=== PATIENT | female | born 1990 | race Caucasian/White ===

== ENCOUNTER 2022-05-02 21:04 | Emergency (ER) | payer BC, SELFPAY ==
[2022-05-02 21:24] VITALS: BP 134/90; PULSE 105; RESP 20; TEMP 36.4; O2SAT 100; BMI 21.9
--- NOTE | 2022-05-02 21:42 | ED_ITS ---
HPI - General Adult General Time Seen by Provider: 21:43 Date Seen: 05/02/22 Chief complaint: Urogenital Problems, Female Stated complaint: Bladder Infection getting worse Time Seen by Provider: 05/02/22 21:05 Source: patient Mode of arrival: ambulatory Limitations: no limitations History of Present Illness HPI narrative: Patient is a 28 year white female was diagnosed with the UTI couple days ago started on Keflex, but she lost her Keflex prescription. Today she noticed some increased dysuria frequency urgency. Denies CVA tenderness. No chest pain shortness of breath skin rashes no rigors. Related Data Home Medications Medication Instructions Recorded Confirmed cephalexin 500 mg capsule 500 mg PO Q12H 05/02/22 05/02/22 Previous Rx's Medication Instructions Recorded amoxicillin 500 mg-potassium 1 tab PO BID #10 tabs 05/02/22 clavulanate 125 mg tablet (Augmentin) Allergies Allergy/AdvReac Type Severity Reaction Status Date / Time Sulfa (Sulfonamide Allergy Mild Hives Verified 05/02/22 21:29 Antibiotics) Review of Systems Status of ROS: Reports: 6 or more systems reviewed and unremarkable except as noted in History and below PFSH PFS Medical History Bladder spasm Depression Drug use 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 Genital herpes Headache Heart murmur Heroin addiction IBS (irritable bowel syndrome) Iron deficiency LGSIL Pap smear of vagina Methamphetamine abuse Migraine Miscarriage Polysubstance abuse Vaginal Pap smear with ASC-US Vitamin D deficiency Surgical History H/O dilation and curettage H/O vaginal hysterectomy Hx laparoscopic cholecystectomy Hx of tonsillectomy Exam Narrative: Exam Narrative: Objective: Patient had E coli growing her urinalysis sensitive 0 pending Abdomen benign soft nontender Vital signs unremarkable afebrile Abdomen benign soft negative CVA tenderness Const: Vital Signs, click to edit/add: Vital Signs - 24 hr 05/02/22 21:24 Temperature 97.6 F Pulse Rate [Left P ulse Oximeter] 105 H Respiratory Rate 20 Blood Pressure [Ri ght Upper Arm] 134/90 H Pulse Oximetry 100 Oxygen Delivery Me thod Room Air Course Vital Signs Vital signs: Initial Vital Signs Temperature 97.6 F 05/02/22 21:24 Temperature Source Temporal Artery Scan 05/02/22 21:24 Pulse Rate 105 H 05/02/22 21:24 Respiratory Rate 20 05/02/22 21:24 Blood Pressure 134/90 H 05/02/22 21:24 Blood Pressure Mean 104 05/02/22 21:24 Blood Pressure Position Sitting 05/02/22 21:24 Pulse Oximetry 100 05/02/22 21:24 Oxygen Delivery Method 05/02/22 21:24 Vital Signs Temperature 97.6 F 05/02/22 21:24 Pulse Rate 105 H 05/02/22 21:24 Respiratory Rate 20 05/02/22 21:24 Blood Pressure 134/90 H 05/02/22 21:24 Pulse Oximetry 100 05/02/22 21:24 Oxygen Delivery Method 05/02/22 21:24 Temperature 97.6 F 05/02/22 21:24 Pulse Rate 105 H 05/02/22 21:24 Respiratory Rate 20 05/02/22 21:24 Blood Pressure 134/90 H 05/02/22 21:24 Pulse Oximetry 100 05/02/22 21:24 Oxygen Delivery Method 05/02/22 21:24 Medical Decision Making MDM Narrative Medical decision making narrative: Patient E coli growing on her urine, sensitivities pending, she lost her antibiotic. At this point will give her Rocephin 1 g IM, and call in Augmentin 500 b.i.d. for her x7 day x5 days, light activity, fluids, rest, follow up with primary care in 2 days if not improving changes concerns worsening return to the ED. Discharge Plan Discharge Clinical Impression: Urinary tract infection Patient Disposition: Home, Self-Care Condition: Stable Additional Instructions: Fluids, rest, Rocephin tonight IM, start antibiotic tomorrow that will be faxed into pharmacy, return to primary care doctor in the next 48 hours not improving changes could worsening or concerns return to the ED. Activity Level: Light activity Discharge Diet: Regular Prescriptions: New amoxicillin-pot clavulanate [Augmentin] 500-125 mg tablet 1 tab PO BID Qty: 10 0RF No Action cephalexin 500 mg capsule 500 mg PO Q12H Label Comments: TAKE ONE CAPSULE BY MOUTH TWICE A DAY FOR 7 DAYS Follow Up/Referrals: Lisa Olmedo MD [Primary Care Provider] - Stand Alone Forms: [facility] Info Instructions
[2022-05-02] MEDS: cefTRIAXone 1 GM VIAL IM (21:53)
[2022-05-02] MEDS: LIDOCAINE 1% 5 ml (pf) 5 ML VIAL 2.1 ML IM (21:53)
--- OUTSIDE RECORDS SUMMARY | 2022-05-02 21:55 | XMS_ITS | Encounter Summary ---
:1990 Author Organization [place] Address [address] [place] [address] Care Team Providers Name Role Phone Lisa Olmedo MD Primary Care Provider Reason for Visit Reason Onset Date Comments Clinic Care Coordination - Follow-up 12/27/2017 Dis charge from [facility] Encounter Details Date Type Department Care Team Description 12/27/2017 Telephone [facility] Debbie Ivan, Clinic Care Coordination Mental Health & [facility] [employer] - Follow-up (Discharge Addiction [place] [address] from [facility]) Clinic [place] [address] [phone] (Work) [phone] Social History Tobacco Use Types Packs/Day Years Used Date Smoking Tobacco: Never Assessed Sex Assigned at Date Recorded Not on file documented as of this encounter Plan of Treatment Not on filedocumented as of this encounter Visit Diagnoses Not on filedocumented in this encounter Care Teams Water Chaser Relationship Specialty Start Date End Date Lisa Olmedo MD PCP - General 02/02/13 [facility] [address] [place] [address] documented as of this encounter
--- OUTSIDE RECORDS SUMMARY | 2022-05-02 21:55 | XMS_ITS | Clinical Summary ---
:1990 Author Organization [place] Address [facility] [place] [address] Care Team Providers Name Role Phone Lisa Olmedo MD Primary Care Provider Allergies Active Allergy Reactions Severity Noted Date Comments Sulfa Drugs Hives 08/02/2020 Medications Medication Sig Dispensed Refills Start Date End Date Status Buprenorphine Place 3 mg under 0 Active HCl-Naloxone HCl the tongue (SUBOXONE SL) traZODone (DESYREL) 150 Take 150 mg by 0 Active MG tablet mouth At Bedtime Active Problems Problem Noted Date Hx of major depression 08/02/2020 Vitamin D deficiency 12/15/2017 Prolonged antepartum rupture of membranes 12/15/2017 Overview: x > 24 hours upon presention Murmur, cardiac 11/03/2017 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 MPP OB PATIENT NEXT VISIT ALERTS: 12/15: Please inform p t of GBS negative. FUTURE APPOINTMENTS: Testing through: Growth: No more needed OB visits through: 12/15/17 needs more Scheduled delivery: PRIMARY DIAGNOSIS: 27 y.o. 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 Normal LV size, normal wall thickness , normal global systolic function with an estimated EF of 60 - 65%. 2. Mildly enlarged left atrium. 3. The mitral valve is normal, mild mitr al regurgitation. LAST GROWTH: 10/31/17: 22w3d EFW 1676 grams, percenti le: 59. 08/18/17: 11w6d EFW 278 grams, percentil e: 23. ECHO: Not indicated TESTING PLANS: Not indicated REFERRING PHYSICIAN/PHONE/LAST UPDATE: Artur Palma NP Primary MD approves scheduling of recomm ended ultrasounds/testing: Unknown SPECIALISTS/CONSULTS: Include: Specialty MD Clinic Name Phone# [place] [facility]ARLENE signed for [facility]: CARE COORDINATION: Vanessa Mayo RN [facility] Maternal Care Coordination [phone] Chart review completed 12/14/2017 [employer]ERCIAL CENSUS TAKER: GENETICS: 11/03/17 Missy Lowery - Amnio CONSULTS: PROCEDURES: 11/03/17 AMNIO: normal 12/01/17: ECHO:Maternal 1. Normal LV size, normal wall thickness , normal global systolic function with an estimated EF of 60 - 65%. 2. Mildly enlarged left atrium. 3. The mitral valve is normal, mild mitr al regurgitation. PERTINENT MEDS: Valtrex - verify started prophylaxis ROUTINE OB: Tdap vaccine - Date given: 11/03/17 ANXIETY/DEPRESSION SCREEN: Initial screen: Date 11/03/17 PHQ-9 score : 7 BECKIE-7 score: 5 Previous history of anxiety or depressio n ? YES ROUTINE LABS: Blood type: A positive Antibody screen: negative Rhogam needed? NO Last pap: 09/29/16: NIL Gestational Diabetes screenin10/19/17: 136 PASSED Treponema Pallidum: Date drawn: 11/03/17: Negative GBS: negative 12/08/17 Initial Hgb 05/23/17: 12.6 /Ferritin Hg b 28 wk 10/19/17: 9.9/Ferritin: 10 Hgb 36 wk 12/08/17 = 10.0 Repeat hgb anemic and compliant every 4 wks if/until >11.0 ADDITIONAL PERTINENT LABS: DELIVERY PLANS: Preferred delivery locat ion: [place] PPTL: Yes No Is Medical assistance? Yes PPTL Permit signed: Date: Scanned date: PLAN OF CARE: 12/01/17 per DW PLAN: - Return in 2, 3, 4 weeks for OB checks. - Maternal eCHO - No BPP testing indicated - Script for Valtrex 500 mg bid given fo r prophylaxis. - Lab testing: GBS at 36 weeks. ?? 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 Constipation 07/12/2011 Tobacco use in 03/29/2011 Polysubstance abuse 03/29/2011 Overview: on Subutex for prior heroin/narcotic add iction (03/2011) Methamphetamine abuse 03/29/2011 Social History Tobacco Use Types Packs/Day Years Used Date Smoking Tobacco: Never Assessed Sex Assigned at Date Recorded Not on file Last Filed Vital Signs Vital Sign Reading Time Taken Comments Blood Pressure 135/74 08/02/2020 7:39 PM [employer] Pulse 107 08/02/2020 7:39 PM [employer] Temperature 37 ??C (98.6 ??F) 08/02/2020 7:39 PM [employer] Respiratory Rate 18 08/02/2020 7:39 PM [employer] Oxygen Saturation 96% 08/02/2020 7:39 PM [employer] Inhaled Oxygen Concentration - - Weight 59 kg (130 lb) 08/02/2020 7:39 PM [employer] Height 157.5 cm (5' 2) 08/02/2020 7:39 PM [employer] Body Mass Index 23.78 08/02/2020 7:39 PM [employer] Plan of Treatment Health Maintenance Due Date Last Done Comments ADVANCE CARE PLANNING 1988 ANNUAL REVIEW OF HM ORDERS 1988 YEARLY PREVENTIVE VISIT 1990 COVID-19 Vaccine (#1) 1988 HIV SCREENING 2003 HEPATITIS C SCREENING 2006 PAP 2009 DTAP/TDAP/TD IMMUNIZATION 11/19/2018 11/19/2008, 03/08/2005 (3 - Tdap) PHQ-2 (once per calendar 06/20/2021 year) INFLUENZA VACCINE (#1) 2022 03/15/2018, 07/08/2017, 06/03/2016, Additional history exists HEPATITIS B IMMUNIZATION Completed 03/14/2009, 03/14/2009, 01/02/2009, Additional history exists IPV IMMUNIZATION Aged Out No longer eligi ble based on patient 's age to complete this topic MENINGITIS IMMUNIZATION Aged Out No longe r eligible based on patient 's age to complete this topic Pneumococcal Vaccine: Aged Out No longer eligible Pediatrics (0 to 5 Years) based on patient's age and At-Risk Patients (6 to to co mplete this topic 64 Years) Insurance Payer Benefit Plan / Subscriber ID Effective Dates Phone Addre ss Type Group BLUE PLUS BLUE PLUS [id number] 2018-Present [phone] [place] [id number] [address] [address] [id number] Care Teams Licensed Therapist Relationship Specialty Start Date End Date Lisa Olmedo MD PCP - General 02/02/13 [facility] [address] [place], [place] [id number]
--- OUTSIDE RECORDS SUMMARY | 2022-05-02 21:55 | XMS_ITS | Encounter Summary ---
:1990 Author Organization [place] Address [address] [facility] [place] [address] Care Team Providers Name Role Phone Lisa Olmedo MD Primary Care Provider Encounter Details Date Type Department Care Team Description 08/02/2020 Emergency [facility] Peter Talbert ipation, unspecified constipation type; [place] [facility] Hi johanna Siddiqui MD Abdominal pain, generalized [address] [place] [address] [place] [address] [phone] (Wo rk) Social History Tobacco Use Types Packs/Day Years Used Date Smoking Tobacco: Never Assessed Sex Assigned at Date Recorded Not on file COVID-19 Exposure Response Date Recorded In the last month, have you been in contact with No / Unsure 08/02/2020 8:04 PM DERRICK WORKER someone who was confirmed or suspected to have Coronavirus / COVID-19? documented as of this encounter Last Filed Vital Signs Vital Sign Reading Time Taken Comments Blood Pressure 135/74 08/02/2020 7:39 PM DERRICK WORKER Pulse 107 08/02/2020 7:39 PM DERRICK WORKER Temperature 37 ??C (98.6 ??F) 08/02/2020 7:39 PM DERRICK WORKER Respiratory Rate 18 08/02/2020 7:39 PM DERRICK WORKER Oxygen Saturation 96% 08/02/2020 7:39 PM DERRICK WORKER Inhaled Oxygen Concentration - - Weight 59 kg (130 lb) 08/02/2020 7:39 PM DERRICK WORKER Height 157.5 cm (5' 2) 08/02/2020 7:39 PM DERRICK WORKER Body Mass Index 23.78 08/02/2020 7:39 PM DERRICK WORKER documented in this encounter Discharge Instructions Discharge InstructionsPeter Talbert MD - 08/02/2020 9:16 PM CST Recommend starting laxative as well as Miralax while in treatment. Docusate or senna should be fine (whatever they have available for you at your facility). If your symptoms worsen or you develop new or concerning symptoms, please return to the Emergency Department for further evaluation and treatment. ICK WORKER documented in this encounter Medications at Time of Discharge Medication Sig Dispensed Refills Start Date End Date Buprenorphine HCl-Naloxone Place 3 mg under the 0 HCl (SUBOXONE SL) tongue traZODone (DESYREL) 150 MG Take 150 mg by mouth 0 tablet At Bedtime documented as of this encounter ED Notes Griselda Monge RN - 08/02/2020 8:04 PM CST Here with acute on chronic constipation, comes from in-patient treatment for heroin/meth. Sober for 6years prior to this relapse. Here by ambulance because treatment center hadn't received her daily PRN meds to prevent constipation & she has been there for 2-3 weeks already. States it has been a good 2 weeks since she has had a normal BM, feels distended with lower back pain, lower abdominal pressure & urinary frequency. State she has been impacted in the past. Nothing given en route for abdominal pain by EMS. ICK WORKER Archana Quiñones - 08/02/2020 7:35 PM CST Bed: ED11 Expected date: Expected time: Means of arrival: Comments: EMS ICK WORKER Peter Talbert MD - 08/02/2020 7:35 PM CST History No chief complaint on file. RAYMOND Serrano is a 30 year old female with history significant for constipation, polysubstance abuse, depression, who presents to emergency department from treatment facility for evaluation of constipation. She reports that she has had issues with constipation for many years. Frequently takes l axatives, MiraLAX, and enemas with needed. She has been in a treatment center for a little over the past 2 weeks. She relapsed on methamphetamine and heroin. Was sober for 6 years prior. Has not had any MiraLAX or docusate while in treatment. Last bowel movement was 10 days ago. Is passing gas. Has intermittent generalized abdominal discomfort and abdominal distention. No fevers, chills, nausea, vomiting. History of cholecystectomy and hysterectomy. The patient's PMHx, Surgical Hx, Allergies, and Medications were all reviewed with the patient. Allergies: Allergies Allergen Reactions ??? Sulfa Drugs Hives Problem List: Patient Active Problem List Diagnosis Date Noted ??? Hx of major depression 08/02/2020 Priority: Medium ??? Vitamin D deficiency 12/15/2017 Priority: Medium ??? Prolonged antepartum rupture of membranes 12/15/2017 Priority: Medium x > 24 hours upon presention ??? Murmur, cardiac 11/03/2017 Priority: Medium ??? 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 Supervision of high-risk 11/01/2017 Priority: Medium MPP OB PATIENT NEXT VISIT ALERTS: 12/15: Please inform pt of GBS negative. FUTURE APPOINTMENTS: Testing through: Growth: No more needed OB visits through: 12/15/17 needs more Scheduled delivery: PRIMARY DIAGNOSIS: 27 y.o. Estimated Date of Delivery: 01/07/18 Maternal: Hx of substance abuse - (heroin 12 years ago, subutex x 5 years - discontinued x 1.5 years, no relapse) Hx - child with OI type V (2008) Hx 2010 - shoulder dystocia <1 min HSV 1 - has had possible outbreaks on genitals Heart murmur - ECHO normal 12/01/17 ECHO: 12/01/17: 1. Normal LV size, normal wall thickness, normal global systolic function with an estimated EF of 60- 65%. 2. Mildly enlarged left atrium. 3. The mitral valve is normal, mild mitral regurgitation. LAST GROWTH: 10/31/17: 22w3d EFW 1676 grams, percentile: 59. 08/18/17: 11w6d EFW 278 grams, percentile: 23. ECHO: Not indicated TESTING PLANS: Not indicated REFERRING PHYSICIAN/PHONE/LAST UPDATE: Archana Palma NP Primary MD approves scheduling of recommended ultrasounds/testing: Unknown SPECIALISTS/CONSULTS: Include: Specialty MD Clinic Name Phone# [place] SHARLENE signed for [facility]: CARE COORDINATION: Vanessa Mayo RN MPP MOMS Maternal Care Coordination [phone] Chart review completed 12/14/2017 SEWAGE RETICULATION DRAFTING OFFICER: GENETICS: 11/03/17 Missy Lowery - Amnio CONSULTS: PROCEDURES: 11/03/17 AMNIO: normal 12/01/17: ECHO:Maternal 1. Normal LV size, normal wall thickness, normal global systolic function with an estimated EF of 60- 65%. 2. Mildly enlarged left atrium. 3. The mitral valve is normal, mild mitral regurgitation. PERTINENT MEDS: Valtrex - verify started prophylaxis ROUTINE OB: Tdap vaccine - Date given: 11/03/17 ANXIETY/DEPRESSION SCREEN: Initial screen: Date 11/03/17 PHQ-9 score: 7 BECKIE-7 score: 5 Previous history of anxiety or depression ? YES ROUTINE LABS: Blood type: A positive Antibody screen: negative Rhogam needed? NO Last pap: 09/29/16: NIL Gestational Diabetes screenin10/19/17: 136 PASSED Treponema Pallidum: Date drawn: 11/03/17: Negative GBS: negative 12/08/17 Initial Hgb 05/23/17: 12.6 /Ferritin Hgb 28 wk 10/19/17: 9.9/Ferritin: 10 Hgb 36 wk 12/08/17 = 10.0 Repeat hgb anemic and compliant every 4 wks if/until >11.0 ADDITIONAL PERTINENT LABS: DELIVERY PLANS: Preferred delivery location: [place] PPTL: Yes No Is Medical assistance? Yes PPTL Permit signed: Date: Scanned date: PLAN OF CARE: 12/01/17 per PLAN: - Return in 2, 3, 4 weeks for OB checks. - Maternal eCHO - No BPP testing indicated - Script for Valtrex 500 mg bid given for prophylaxis. - Lab testing: GBS at 36 weeks. ?? 10/31/17 LF -Arrange genetic amniocentesis ABBY at [place] site --rule-out OI V -Coordinate transfer of care--patient wishes to deliver at [facility] (even if OI ruled out) ??? 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 Psychophysiological insomnia 09/24/2015 Priority: Medium ??? Iron deficiency 08/25/2011 Priority: Medium Ferritin 11.5 12/15/2017. ??? Constipation 07/12/2011 Priority: Medium ??? Tobacco use in 03/29/2011 Priority: Medium ??? Polysubstance abuse (H) 03/29/2011 Priority: Medium on Subutex for prior heroin/narcotic addiction (03/2011) ??? Methamphetamine abuse (H) 03/29/2011 Priority: Medium Past Medical History: No past medical history on file. Past Surgical History: Past Surgical History: Procedure Laterality Date ??? CHOLECYSTECTOMY ??? HYSTERECTOMY Family History: No family history on file. Social History: Marital Status: Unknown [6] Social History Tobacco Use ??? Smoking status: None Substance Use Topics ??? Alcohol use: None ??? Drug use: None Medications: ??? Buprenorphine HCl-Naloxone HCl (SUBOXONE SL) ??? traZODone (DESYREL) 150 MG tablet Review of Systems Constitutional: Negative for chills and fever. HENT: Negative for sore throat. Eyes: Negative for visual disturbance. Respiratory: Negative for cough and shortness of breath. Cardiovascular: Negative for chest pain. Gastrointestinal: Positive for abdominal distention, abdominal pain and constipation. Negative for nausea and vomiting. Genitourinary: Negative for dysuria. Musculoskeletal: Negative for neck pain and neck stiffness. Skin: Negative for rash. Neurological: Negative for headaches. Physical Exam BP: 135/74 Pulse: 107 Temp: 98.6 ??F (37 ??C) Resp: 18 Height: 157.5 cm (5' 2) Weight: 59 kg (130 lb) SpO2: 96 % Physical Exam GEN: Awake, alert, and cooperative. No acute distress. Well groomed. Sitting in recumbent position on cart. HENT: MMM. External ears and nose normal bilaterally. EYES: EOM intact. Conjunctiva clear. No discharge. NECK: Symmetric, freely mobile. CV : Regular rate and rhythm. Extremities warm and well perfused PULM: Normal effort. Speaking in full sentences with no audible wheezing. ABD: Soft and nontender. Abdomen is distended. Dullness to percussion. No rebound or guarding. NEURO: Normal speech. Following commands. CN II-XII grossly intact. Answering questions and interacting appropriately. EXT: No gross deformity. INT: Warm. No diaphoresis. Normal color. ED Course Procedures Critical Care time: none Results for orders placed or performed during the hospital encounter of 08/02/20 (from the past 24 hour(s)) Basic metabolic panel Result Value Ref Range Sodium 137 133 - 144 mmol/L Potassium 4.1 3.4 - 5.3 mmol/L Chloride 100 94 - 109 mmol/L Carbon Dioxide 35 (H) 20 - 32 mmol/L Anion Gap 2 (L) 3 - 14 mmol/L Glucose 102 (H) 70 - 99 mg/dL Urea Nitrogen 14 7 - 30 mg/dL Creatinine 0.62 0.52 - 1.04 mg/dL GFR Estimate >90 >60 mL/min/[1.73_m2] GFR Estimate If Black >90 >60 mL/min/[1.73_m2] Calcium 9.2 8.5 - 10.1 mg/dL CBC with platelets differential Result Value Ref Range WBC 8.5 4.0 - 11.0 10e9/L RBC Count 4.31 3.8 - 5.2 10e12/L Hemoglobin 12.8 11.7 - 15.7 g/dL Hematocrit 39.1 35.0 - 47.0 % MCV 91 78 - 100 fl MCH 29.7 26.5 - 33.0 pg MCHC 32.7 31.5 - 36.5 g/dL RDW 12.2 10.0 - 15.0 % Platelet Count 392 150 - 450 10e9/L Diff Method Automated Method % Neutrophils 58.5 % % Lymphocytes 31.4 % % Monocytes 6.7 % % Eosinophils 2.4 % % Basophils 0.5 % % Immature Granulocytes 0.5 % Nucleated RBCs 0 0 /100 Absolute Neutrophil 5.0 1.6 - 8.3 10e9/L Absolute Lymphocytes 2.7 0.8 - 5.3 10e9/L Absolute Monocytes 0.6 0.0 - 1.3 10e9/L Absolute Eosinophils 0.2 0.0 - 0.7 10e9/L Absolute Basophils 0.0 0.0 - 0.2 10e9/L Abs Immature Granulocytes 0.0 0 - 0.4 10e9/L Absolute Nucleated RBC 0.0 UA reflex to Microscopic Result Value Ref Range Color Urine Colorless Appearance Urine Clear Glucose Urine Negative NEG^Negative mg/dL Bilirubin Urine Negative NEG^Negative Ketones Urine Negative NEG^Negative mg/dL Specific [place] Urine 1.005 1.003 - 1.035 Blood Urine Negative NEG^Negative pH Urine 9.0 (H) 5.0 - 7.0 pH Protein Albumin Urine Negative NEG^Negative mg/dL Urobilinogen mg/dL 0.0 0.0 - 2.0 mg/dL Nitrite Urine Negative NEG^Negative Leukocyte Esterase Urine Negative NEG^Negative Source Midstream Urine Abdomen, flat/upright (2 views) Narrative ABDOMEN TWO VIEWS 08/02/2020 8:33 PM HISTORY: Abdominal distention. Constipation. COMPARISON: None. Impression IMPRESSION: There is a moderate amount of stool throughout the colon, suggesting constipation. No convincing radiographic evidence for bowel obstruction. No free intraperitoneal air. Surgical clips RUQ. LÓPEZ CID MD Medications sodium phosphate (FLEET ENEMA) 1 enema (1 enema Rectal Given 08/02/202036) Assessments & Plan (with Medical Decision Making) 30 year old female with past medical history history of constipation and polysubstance abuse who presents from the treatment facility for abdominal distention and no bowel movement for past 10 days. Ispassing gas. Benign abdominal exam. CBC normal. BMP with metabolic alkalosis and urinalysis with pH of 9.0 no evidence of acute infection. Two-view abdomen pelvis with moderate stool burning and no signs of obstruction. Patient was given Fleet enema with large amount of stool produced. She was feelingsignificantly improved afterwards. Repeat abdominal examination without any tenderness and significan tly reduced distention. Patient will have either docusate or senna as well as MiraLAX available to her at her treatment facility tomorrow. She has taken these in the past previously with success but has not had them available to her previously during her treatment. She is on Suboxone therapy for her opiate withdrawal. ED return precautions discussed. Patient discharged in improved condition. I have reviewed the nursing notes. New Prescriptions No medications on file Final diagnoses: Constipation, unspecified constipation type Abdominal pain, generalized Peter Talbert MD 08/02/2020 [facility] EMERGENCY DEPT Disclaimer: This note consists of words and symbols derived from keyboarding and dictation using voice recognition software. As a result, there may be errors that have gone undetected. Please consider this when interpreting information found in this note. Peter Talbert MD 08/02/20 2158 ICK WORKER documented in this encounter Plan of Treatment Not on filedocumented as of this encounter Procedures Procedure Name Priority Date/Time Associated Comments Diagnosis XR ABDOMEN 2 VIEWS STAT 08/02/2020 8:33 PM Res ults for this DERRICK WORKER procedure are i n the results section. CBC WITH PLATELETS & STAT 08/02/2020 8:17 PM R esults for this DIFFERENTIAL DERRICK WORKER procedure are i n the results section. URINE MACROSCOPIC STAT 08/02/2020 8:17 PM Resu lts for this WITH REFLEX TO MICRO DERRICK WORKER procedu re are in the results section. BASIC METABOLIC PANEL STAT 08/02/2020 8:17 PM Results for this DERRICK WORKER procedure are i n the results section. documented in this encounter Results Abdomen, flat/upright (2 views) (08/02/2020 8:33 PM DERRICK WORKER) Anatomical Region Laterality Modality Abdomen/Pelvis Digital Radiography Specimen (Source) Anatomical Location Collection Method / Collectio n Time Received Time / Laterality Volume Impressions 08/02/2020 8:46 PM DERRICK WORKER IMPRESSION: There is a moderate amount of stool throughout the colon, suggesting constipation. No convincing r adiographic evidence for bowel obstruction. No free intraperitoneal air . Surgical clips RUQ. LÓPEZ CID MD Narrative 08/02/2020 8:46 PM DERRICK WORKER ABDOMEN TWO VIEWS ??08/02/2020 8:33 PM HISTORY: Abdominal distention. Constipat ion. COMPARISON: None. Procedure Note López Cid MD - 08/02/2020Forma tting of this note might be different from the original. ABDOMEN TWO VIEWS 08/02/2020 8:33 PM HISTORY: Abdominal distention. Constipat ion. COMPARISON: None. IMPRESSION: There is a moderate amount o f stool throughout the colon, suggesting constipation. No convincing r adiographic evidence for bowel obstruction. No free intraperitoneal air . Surgical clips RUQ. LÓPEZ CID MD Peter Talbert MD IMG DIAGNOSTIC IMAGING ORDER ANKIT (ABNORMAL) UA reflex to Microscopic (08/02/2020 8:17 PM DERRICK WORKER) [facility] Method Time Signature Color Urine Colorless 08/02/2020 [facility] 8:40 PM [facility] Appearance Urine Clear 08/02/2020 [facility] 8:40 PM [facility] Glucose Urine Negative NEG^Negat 08/02/2020 [facility] [place] mg/dL 8:40 PM [facility] Bilirubin Urine Negative NEG^Negat 08/02/2020 [facility] 8:40 PM [facility] Ketones Urine Negative NEG^Negat 08/02/2020 [facility] [place] mg/dL 8:40 PM [facility] Specific [place] 1.005 1.003 - 08/02/2020 [facility] Urine 1.035 8:40 PM [facility] Blood Urine Negative NEG^Negat 08/02/2020 [facility] [place] 8:40 PM [facility] pH Urine 9.0 (H) 5.0 - 7.0 08/02/2020 [facility] pH 8:40 PM [facility] Protein Albumin Negative NEG^Negat 08/02/2020 [facility] Urine [place]aylor mg/dL 8:40 PM [facility] Urobilinogen 0.0 0.0 - 2.0 08/02/2020 [facility] mg/dL mg/dL 8:40 PM [facility] Nitrite Urine Negative NEG^Negat 08/02/2020 [facility] [place] 8:40 PM [facility] Leukocyte Negative NEG^Negat 08/02/2020 [facility] Esterase Urine [place]aylor 8:40 PM [facility] Source Midstream 08/02/2020 [facility] Urine 8:17 PM [facility] Specimen (Source) Anatomical Collection Method Collection Time Re ceived Time Location / / Volume Laterality Examination of 08/02/2020 8:17 08/02/2020 8:32 midstream urine PM DERRICK WORKER PM DERRICK WORKER specimen (procedure) Peter Talbert MD LAB - URINE ORDERABLES Performing Organization Address City/State/ZIP Code Phon e Number [facility] [address] [place], [place] [address] CBC with platelets differential (08/02/2020 8:17 PM DERRICK WORKER) [facility] gist Method Time Signature WBC 8.5 4.0 - 08/02/2020 [facility] 11.0 8:35 PM [facility] 10e9/L [facility] RBC Count 4.31 3.8 - 5.2 08/02/2020 [facility] 10e12/L 8:35 PM [facility] Hemoglobin 12.8 11.7 - 08/02/2020 [facility] 15.7 g/dL 8:35 PM [facility] Hematocrit 39.1 35.0 - 08/02/2020 [facility] 47.0 % 8:35 PM [facility] MCV 91 78 - 100 08/02/2020 [facility] fl 8:35 PM [facility] MCH 29.7 26.5 - 08/02/2020 [facility] 33.0 pg 8:35 PM [facility] MCHC 32.7 31.5 - 08/02/2020 [facility] 36.5 g/dL 8:35 PM [facility] RDW 12.2 10.0 - 08/02/2020 [facility] 15.0 % 8:35 PM [facility] Platelet Count 392 150 - 450 08/02/2020 [facility] 10e9/L 8:35 PM [facility] Diff Method Automated 08/02/2020 [facility] Method 8:35 PM [facility] % Neutrophils 58.5 % 08/02/2020 [facility] 8:35 PM [facility] % Lymphocytes 31.4 % 08/02/2020 [facility] 8:35 PM [facility] % Monocytes 6.7 % 08/02/2020 [facility] 8:35 PM [facility] % Eosinophils 2.4 % 08/02/2020 [facility] 8:35 PM [facility] % Basophils 0.5 % 08/02/2020 [facility] 8:35 PM [facility] % Immature 0.5 % 08/02/2020 [facility] Granulocytes 8:35 PM [facility] Nucleated RBCs 0 0 /100 08/02/2020 [facility] 8:35 PM [facility] Absolute 5.0 1.6 - 8.3 08/02/2020 [facility] Neutrophil 10e9/L 8:35 PM [facility] Absolute 2.7 0.8 - 5.3 08/02/2020 [facility] Lymphocytes 10e9/L 8:35 PM [facility] Absolute 0.6 0.0 - 1.3 08/02/2020 [facility] Monocytes 10e9/L 8:35 PM [facility] Absolute 0.2 0.0 - 0.7 08/02/2020 [facility] Eosinophils 10e9/L 8:35 PM [facility] Absolute 0.0 0.0 - 0.2 08/02/2020 [facility] Basophils 10e9/L 8:35 PM [facility] Abs Immature 0.0 0 - 0.4 08/02/2020 [facility] Granulocytes 10e9/L 8:35 PM [facility] Absolute 0.0 08/02/2020 [facility] Nucleated RBC 8:35 PM [facility] Specimen Anatomical Collection Method Collection Time Receive d Time (Source) Location / / Volume Laterality Blood specimen 08/02/2020 8:17 PM 021 8:32 (specimen) DERRICK WORKER PM DERRICK WORKER Peter Talbert MD LAB - BLOOD ORDERABLES Performing Organization Address City/State/ZIP Code Phon e Number [facility] [address] [place], [place] [address] (ABNORMAL) Basic metabolic panel (08/02/2020 8:17 PM DERRICK WORKER) P athologist Signature Sodium 137 133 - 144 08/02/2020 [facility] mmol/L 8:43 PM [facility] Potassium 4.1 3.4 - 5.3 08/02/2020 [facility] mmol/L 8:43 PM [facility] Chloride 100 94 - 109 08/02/2020 [facility] mmol/L 8:43 PM [facility] Carbon Dioxide 35 (H) 20 - 32 08/02/2020 [facility] mmol/L 8:49 PM [facility] Anion Gap 2 (L) 3 - 14 08/02/2020 [facility] mmol/L 8:49 PM [facility] Glucose 102 (H) 70 - 99 08/02/2020 [facility] mg/dL 8:49 PM [facility] Urea Nitrogen 14 7 - 30 08/02/2020 [facility] mg/dL 8:49 PM [facility] Creatinine 0.62 0.52 - 08/02/2020 [facility] 1.04 mg/dL 8:49 PM [facility] GFR Estimate >90 >60 08/02/2020 [facility] mL/min/{1. 8:49 PM [facility] 73_m2} CENTER Comment: Non GFR Calc Starting 06/06/2018, serum creatinine ba sed estimated GFR (eGFR) will be calculated using the Chronic Kidney Dise [facility] Epidemiology Collaboration (CKD-EPI) equation. GFR Estimate If >90 >60 mL/min/{1.73_m2} 08/02/2020 8: 49 PM [facility] Comment: GFR Calc Starting 06/06/2018, serum creatinine ba sed estimated GFR (eGFR) will be calculated using the Chronic Kidney Dise [facility] Epidemiology Collaboration (CKD-EPI) equation. Calcium 9.2 8.5 - 10.1 mg/dL 08/02/2020 8:49 PM [facility] Specimen Anatomical Collection Method Collection Time Receive d Time (Source) Location / / Volume Laterality Blood specimen 08/02/2020 8:17 PM 021 8:32 (specimen) DERRICK WORKER PM DERRICK WORKER Peter Talbert MD LAB - BLOOD ORDERABLES Performing Organization Address City/State/ZIP Code Phon e Number [facility] [address] [place], [place] [address] documented in this encounter Visit Diagnoses Diagnosis Constipation, unspecified constipation t ype Abdominal pain, generalized documented in this encounter Administered Medications Inactive Administered Medications - up to 3 most recent administrations Medication Order MAR Action Action Date Dose Rate Site sodium phosphate (FLEET ENEMA) 1 Given 08/02/2020 8:37 PM DERRICK WORKER 1 enema enema 1 enema, Rectal, ONCE, On 08/02/20 at 2010, For 1 dose, For children greater than or equal to 12 years Hold for loose stools. documented in this encounter Active and Recently Administered Medications Times are shown in DERRICK WORKER. Scheduled Medication Order 07/31/2020 08/01/2020 08/02/2020 sodium phosphate (FLEET ENEMA) 1 enema (COMPLETED) 2036 (Given - Provider: Griselda Monge RN) 1 enema, Rectal, ONCE, 08/02/20 at 20 10, For 1 dose, For children greater than or equal to 12 years Hold for loose stools. documented in this encounter Care Teams Hay Rake Operator Relationship Specialty Start Date End Date Lisa Olmedo MD PCP - General 8/16/13 [facility] [address] [place] [address] documented as of this encounter
--- OUTSIDE RECORDS SUMMARY | 2022-05-02 21:55 | XMS_ITS | Encounter Summary ---
:1990 Author Organization [place] Address [address] [facility] [place] [address] Care Team Providers Name Role Phone Lisa Olmedo MD Primary Care Provider Debbie Ivan Unavailable Encounter Details Date Type Department Care Team Description 09/14/2012 Office Visit-[facility] Tuan Lopez MD [address] [facility] [address] [place] [address] (Wo rk) Social History Tobacco Use Types Packs/Day Years Used Date Smoking Tobacco: Never Assessed Sex Assigned at Date Recorded Not on file documented as of this encounter Progress Notes Lester Lopez MD - 09/14/2012 10:00 AM CDT [employer] Neck Whipper: Lester Lopez Status: Final - Signature Encounter: 2012-09-14 10:00:00.000 Type: Neurology Letter [facility] [address] [address] September 14, 2012 Lisa Olmedo MD [facility] [address] [place] [address] RE: Florecita Serrato : 1990 JULIO: 09/14/2012 Dear Lisa: I am writing to you in followup on Florecita Serrano with chief complaint of headache. I initially saw this patient in March. At that time, she reports chronic daily headache with a history of migraine. She had been using Imitrex. I started her on propranolol. I obtained an MRI scan of the brain. The brain MRI is normal. I had communicated that result to her by telephone in April. She reports that things are going well. She is having fewer headaches. She is getting headaches about twice a month. She is using Imitrex to good effect. She takes 50 mg tablet. Her dose of Inderal is 40 mg threetimes a day. She is working about 30 hours a week. On exam, her blood pressure is 125/60. Heart rate is 72. Funduscopic exam shows sharp discs bilaterally with venous pulsations. Assessment: Common migraine with chronic daily headache. Discussion: This patient is seen in followup with common migraine and chronic daily headache. Her headache control is improved on propranolol. I have given her a prescription for 120 mg long-acting to take one per day. She can continue on the Imitrex. I can see her on an as needed basis. She knows notto get on these medicines. If you have questions about this, please contact me. Sincerely, Lester Lopez MD Department of Neurology [facility] [id number] Electronically signed by:Lester Lopez M.D. Sep 14 2012 5:08PM STILL OPERATOR Author documented in this encounter Plan of Treatment Not on filedocumented as of this encounter Visit Diagnoses Not on filedocumented in this encounter Care Teams Bull Fiddle Player Relationship Specialty Start Date End Date Lisa Olmedo MD PCP - General 02/02/13 [facility] [address] [place] [address] Debbie Ivan LSW Career Resource Specialist Clinic 11/29/17 12/26/17 documented as of this encounter
--- OUTSIDE RECORDS SUMMARY | 2022-05-02 21:55 | XMS_ITS | Encounter Summary ---
:1990 Author Organization [place] Address [address] [facility] [place] [address] Care Team Providers Name Role Phone Lisa Olmedo MD Primary Care Provider Encounter Details Date Type Department Care Team Description 08/02/2020 Travel Social History Tobacco Use Types Packs/Day Years Used Date Smoking Tobacco: Never Assessed Sex Assigned at Date Recorded Not on file COVID-19 Exposure Response Date Recorded In the last month, have you been in contact with No / Unsure 08/02/2020 8:04 PM DRUM PULLER someone who was confirmed or suspected to have Coronavirus / COVID-19? documented as of this encounter Plan of Treatment Not on filedocumented as of this encounter Visit Diagnoses Not on filedocumented in this encounter Care Teams Supervisor Maintenance Relationship Specialty Start Date End Date Lisa Olmedo MD PCP - General 02/02/13 [facility] [address] [place] [address] documented as of this encounter
--- OUTSIDE RECORDS SUMMARY | 2022-05-02 21:56 | XMS_ITS | Encounter Summary ---
:1990 Author Organization [facility] Address [address] [place] [address] Care Team Providers Name Role Phone Unavailable Primary Care Provider Unavailable Encounter Details Date Type Department Care Team Description 08/12/2010 Hospital Encounter [facility]X [facility] Ele Payne M.D. [address] [place] [phone] (Wo rk) Social History Tobacco Use Types Packs/Day Years Used Date Smoking Tobacco: Never Assessed Sex Assigned at Date Recorded Not on file documented as of this encounter Progress Notes Ele Payne M.D. - 08/12/2010 12:00 AM CST [id number] CHIEF COMPLAINT/REASON FOR VISIT Urinary frequency and urgency. HISTORY OF PRESENT ILLNESS This is a 20-year-old female who has a life long history of urinary frequency and urgency. Her symptoms have gotten worse in the last 12 months. She states she has an average of 2 infections per year. When she had infections, she has dysuria, but her frequency and urgency increase in intensity. She has nocturia ranging from 3 to 8 times a night and can go to the bathroom once an hour, sometimes more than that. Even right after she urinates, she feels like she needs to go again. As a child, she was a bed wetter up until the age of 10. She was using a variety of different types of oral medications and also tried a nasal spray suggesting she was on DDAVP. She has not had any urological surgery. She does sometimes have hesitancy, sensation of incomplete voiding, straining to urinate. She maintains that the caliber and strength of her stream is normal. She has had 1 child delivered by vaginal delivery. She states it was an uncomplicated delivery. She has a history of being tried on different antibiotics. These have not improved her symptoms. She has a urinalysis from May 12, which is essentially normal. PAST MEDICAL / SURGICAL HISTORY 1) Chronic constipation. 2) History of drug addiction. 3) History of tonsillectomy. 4) History of upper endoscopy. CURRENT MEDICATIONS Reviewed and no changes per EMR. ALLERGIES Reviewed and no changes per EMR. FAMILY HISTORY Father is 54. Mother is 50. Both are alive and well. She has 1 sister who is 26. SOCIAL HISTORY The patient is single. She is in a relationship. She smokes one-half pack a day and has been doing so for 9 years. She quit drinking alcohol 1 year ago. She is employed at [employer]. SYSTEMS REVIEW Please see personal history form dated 08/12/10. VITAL SIGNS TEMP: 37.1 degreesC PULSE: 80 BLOOD PRESSURE: 104/70 PHYSICAL EXAM GENERAL: Alert, oriented, cooperative female, in no apparent distress. HEAD: Grossly normal. ENT: Neck is grossly normal. Face grossly normal. LUNGS: Normal respiratory effort. No shortness of breath. ABDOMEN: No CVA tenderness. GAIT: Normal gait. EXTREMITIES: No cyanosis, clubbing, or edema of the extremities. IMPRESSION / REPORT / PLAN PROCEDURE: Uroflow was performed. She voided 93 mL indicating that this was an average stream. She did so in 21 seconds with a peak flow of 6 and a mean of 4. Her residual is 18 mL. 1) Symptoms suggest an overactive bladder. Given the lack of pain and the fact that she has a history of bed wetting as a child this would argue against interstitial cystitis. I would like to give her a clinical trial with Detrol LA 4 mg daily and have her return to clinic in 4 to 6 weeks. At that time, we will repeat an uroflow and residual. If her symptoms have improved, we can continue the medications. If they have not, we will likely need to proceed with more thorough testing to include a cystoscopy, cystometrogram. Etienne Velasquez Electronically Signed By: ELE PAYNE MD On: 08/17/2010 01:42 Source: [facility] [id number] Document Id: [id number] RIDGE [employer]T PUNCHER documented in this encounter Miscellaneous Notes Miscellaneous - Ele Payne M.D. - 08/12/2010 10:49 AM CST Ambulatory Patient Summary [facility] [address] [place] [id number] Visit Information Name: ABIGAIL MARI Current Date: 08/12/2010 10:48:57 Primary Care Provider: ANYA EDGE Your Medications Here is a list of your medications. It is important to take your medications as directed. Use a pillbox or chart to help remind you to take your medications. Please let your doctor or nurse know if you have problems taking your medications. Medication/Strength Dose Route Frequency Indications/Special Instructions/Comments tolterodine (Detrol LA 4 mg oral capsule, extended release) 4 mg Oral once a day ondansetron (Zofran ODT 4 mg oral tablet, disintegrating) 4 mg Oral every 8 hours as needed for Nausea psyllium (Metamucil) scoop Oral two times a day buprenorphine-naloxone (Suboxone 8 mg-2 mg sublingual tablet) 1.5 tab(s) Sublingual once a day ethinyl estradiol-levonorgestrel (Seasonique oral tablet) 1 tab(s) Oral once a day Your Allergies & Intolerances Substance Reaction Symptoms Category Comments sulfa drugs hives Drug Your Problem List Problem Status Onset Comments Drug addiction NOS Active Constipation Active Your Recommendations We want to make sure you get the tests, immunizations, and guidance you need to stay healthy. Here is a customized list of recommendations, based on information we have in your medical record. Your doctor may have additional recommendations for you, based on your personal medical history and risk factors. You can help us by calling us to make an appointment when you are due for your tests. Additional information regarding recommendations: Test/Treatment Last Done Next Due Additional Information Screening Chlamydia every 1 year Females Age 15-24 08/12/2010 Screening Pap Smear every 3 years Women 21-65 08/12/2010 Checks for signs of cancer of the cervix. Lipid Panel every 5 years Age 20-75 08/12/2010 Checks blood for good (HDL) and bad (LDL) cholesterol. Know your numbers, they are one indicator of your risk for heart attack and stroke. Vaccine: Tetanus every 10 years 11/19/2008 11/17/2018 Immunization to help prevent you from getting the serious disease Tetanus (Patriciajaw). Your Upcoming Appointments Date Time Location Reason Provider 09/08/2010 15:45 [facility] Urology pvr come with full bladder Ele Payne MD Your Goals/Additional instructions: Source: [facility] [employer] Document Id: [id number] Miscellaneous - Ele Payne M.D. - 08/12/2010 10:48 AM CST Ambulatory Depart Summary [address] [address] Visit Information Name: ABIGAIL MARI Current Date: 08/12/2010 10:48:57 Primary Care Provider: ANYA EDGEP DARIELABIGAIL PORTILLO NONI has been given the following list of medications: Your Medications It is important to take your medications as directed. Use a pill box or chart to help remind you to take your medications. Please let your doctor or nurse know if you have problems taking your medications. Medication/Strength Dose Route Frequency Indications/Special Instructions/Comments tolterodine (Detrol LA 4 mg oral capsule, extended release) 4 mg Oral once a day ondansetron (Zofran ODT 4 mg oral tablet, disintegrating) 4 mg Oral every 8 hours as needed for Nausea psyllium (Metamucil) scoop Oral two times a day buprenorphine-naloxone (Suboxone 8 mg-2 mg sublingual tablet) 1.5 tab(s) Sublingual once a day ethinyl estradiol-levonorgestrel (Seasonique oral tablet) 1 tab(s) Oral once a day Additional Information: Yes - Current list of reconciled medications is provided and explained to the patient and/or family, guardian/caregiver. Source: [facility] [employer] Document Id: [id number] Electronically signed by Chikis [facility]leen Pastry Wrapper [id number] at 11/21/2016 11:48 AM CDT Miscellaneous - Jair Shankar, L.P.N. - 08/12/2010 8:41 AM CST Adult Cement Sprayer Helper Intake/History Adult Cement Sprayer Helper Intake/History Entered On: 08/12/2010 8:51 [employer] Performed On: 08/12/2010 8:41 [employer] by JAIR SHANKAR Intake Chief Complaint: Urinary urgency , prev. bladder infection, nocturia Ambulatory Intake Additional Information: States she had a surgery on her bladder about age [age] and has some kind of abdominal surgery Temperature Core: 37.1C(Converted to: 98.8DegF) Peripheral Pulse Rate: 80/min Systolic Blood Pressure: 104mmHg Diastolic Blood Pressure: 70mmHg NIBP Mean: 81mmHg BP Location: Left upper extremity JAIR SHANKAR - 08/12/2010 8:41 [employer] Subjective Pain Symptoms: No Genitourinary Symptoms: Frequency, Hematuria, Nocturia JAIR SHANKAR - 08/12/2010 8:41 [employer] Dependent Habits Tobacco Use/Currently Using: Yes Exposure to Tobacco Smoke: Patient smokes JAIR SHANKAR - 08/12/2010 8:41 [employer] Tobacco Use Grid Type: Cigarettes Cigarette Use Packs/Day: 0.5 JAIR SHANKAR - 08/12/2010 8:41 [employer] Alcohol Use: No JAIR SHANKAR 08/12/2010 8:41 [employer] Caffeine Use Grid Caffeine Use: Current Type: Soft drinks Frequency: Daily Amount: 3-4 cans Mt Dew JAIR SHANKAR 08/12/2010 8:41 [employer]TR[employer] Allergies Allergies (Active) sulfa drugs Estimated Onset Date: Unspecified ; Reactions: hives ; Created By: NATHAN MONET; Reaction Status: Active ; Category: Drug ; Substance: sulfa drugs ; Type: Allergy ; Severity: Moderate ; Updated By: NATHAN MONET; Source: Patient ; Reviewed Date: 07/26/2010 16:17 [employer] Source: [facility] POWERCHART Document Id: [id number] CARTRID[employer]T PUNCHER!27 [employer] documented in this encounter Plan of Treatment Not on filedocumented as of this encounter Visit Diagnoses Not on filedocumented in this encounter
--- OUTSIDE RECORDS SUMMARY | 2022-05-02 21:56 | XMS_ITS | Encounter Summary ---
:1990 Author Organization [facility] Address [address] [place] [address] Care Team Providers Name Role Phone Unavailable Primary Care Provider Unavailable Encounter Details Date Type Department Care Team Description 03/13/2005 Hospital Encounter HX [facility] Jenaro Arzate, C.N.P. Social History Tobacco Use Types Packs/Day Years Used Date Smoking Tobacco: Never Assessed Sex Assigned at Date Recorded Not on file documented as of this encounter Plan of Treatment Not on filedocumented as of this encounter Visit Diagnoses Not on filedocumented in this encounter
--- OUTSIDE RECORDS SUMMARY | 2022-05-02 21:56 | XMS_ITS | Clinical Summary ---
:1990 Author Organization [facility] [place] [address] Care Team Providers Name Role Phone Lisa Olmedo MD Primary Care Provider Matt Champagne MD Unavailable Unavailable [place], [place] Unavailable Unavailable Sunshine Hanson MD Unavailable Allergies Active Allergy Reactions Severity Noted Date Comments Sulfa (Sulfonamide Antibiotics) Hives 7 Medications Medication Sig Dispensed Refills Start Date End Date Status traZODone (DESYREL) 50 Take 1 tablet 30 tablet 2 10/01/2019 Active mg tabletIndications: by mouth at Sleeping difficulty bedtime. cyclobenzaprine Take 1 tablet 30 tablet. 1 05/19/2020 Active (FLEXERIL) 10 mg by mouth 3 tabletIndications: Neck times daily if pain needed for Muscle Spasm. albuterol HFA (PRO-AIR) Inhale 1-2 1 Each 1 05/19/2020 Active 90 mcg/actuation Puffs by mouth inhalerIndications: SOB every 4 hours (shortness of breath) if needed. cephalexin (Keflex) 500 Take 1 Capsule 14 Capsule 0 04/30/2022 05/07/2022 Active mg capsuleIndications: (500 mg) by Acute UTI mouth two times daily for 7 days. Active Problems Patient Care Coordination Note Formatting of this note might be differe nt from the original. There is a resolved Delivery P miguel of Care note under Case Management tab dated 12/26/17 Vanessa Mayo RN Maternal Care Coordin [facility] Physicans........ 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 [facility] OB PATIENT NEXT VISIT ALERTS: 12/15: Please [...] Phone# [place] SHARLENE signed for [facility]: CARE COORDINATION: Vanessa Mayo RN [facility] MOM[facility] Maternal Care Coordination [phone] Chart review completed 12/14/2017 [employer]: GENETICS: 11/03/17 Missy Lowery - Amnio CONSULTS: [...] LF -Arrange genetic amniocentesis [facility] --rule-out OI V -Coordinate transfer of care--patient wi shes to deliver at [facility] (even if OI ruled out) prior baby with osteogenesis imperfecta 08/18/2017 Psychophysiological insomnia 09/24/2015 Iron deficiency 08/25/2011 Overview: Ferritin 11.5 12/15/2017. Unspecified constipation 07/12/2011 Methamphetamine abuse 03/29/2011 Polysubstance abuse 03/29/2011 Overview: on Subutex for prior heroin/narcotic add iction (03/2011) Tobacco use in 03/29/2011 Hx of major depression Resolved Problems Problem Noted Date Resolved Date Gallstones 06/24/2016 12/15/2017 Spontaneous vaginal delivery 2011 07/12/2011 Shoulder dystocia 2011 07/12/2011 Hypokalemia 03/30/2011 2011 Hypomagnesemia 03/30/2011 2011 History Genital herpes complicating 03/29/2011 07/12/2011 Anemia complicating 03/29/2011 07/12/2011 Nausea and vomiting in 03/29/2011 011 Constipation in 03/29/2011 07/12/2011 Poor weight gain of 03/29/2011 07/12/2011 Supervision of other high-risk (V23.89) 12/29/2010 07/12/2011 Supervision of other normal 09/08/2010 Genital herpes, unspecified 08/21/2010 03/29/2011 Spontaneous Vaginal Delivery at 37 1/7 weeks 10/10/2008 11/17/2010 ROM (ruptured membranes) 10/09/2008 10/10/2008 Other known or suspected abnormality, not elsewhere 11/17/2010 classified, affecting management of mother, unspecified as to episode of care Overview: Long bone shortening Supervision of normal first 03/18/2008 Tobacco use disorder 08/08/2007 03/29/2011 Migraine, unspecified, without mention of intractable migrai ne 08/24/2006 03/29/2011 without mention of status migrainosus Drug abuse 03/29/2011 Overview: h/o treatment, heroin,pot, vicodin, perc ocet Encounters Date Type Specialty Care Team Description 04/30/2022 Office Visit Kailee Trammell NP Urinary Problem Provider, [facility] 04/30/2022 Travel from Last 3 Months Immunizations Name Administration Dates Next Due DTaP 11/19/2008, 03/08/2005 Hepatitis B (Adult) 03/14/2009, 01/02/2009, 11/19/2008 Hepatitis B, Unspecified 03/14/2009, 01/02/2009, 11/19/2008 Influenza Virus, Unspecified 03/14/2009, 04/23/2008 Influenza, IIV3 (Age >=3 years) 03/22/2012, 04/02/2011, 02/19, 04/23/2008 Influenza, IIV4 03/15/2018, 06/03/2016, 04/24/2015 Tdap 11/03/2017, 11/19/2008 Family History Medical History Relation Name Comments Alcohol/Drug Father Heart Disease Father [place], age 49, aliv e and well Hyperlipidemia Father Hypertension Father Other Father migraine headach es Heart Disease Maternal Grandfather Good Health Maternal Grandmother Other Mother migraine headach es Anesthesia Problem Neg. No Known Problems Paternal Grandfather No Known Problems Paternal Grandmother Good Health Sister low bone density levels Other Son OI Relation Name Status Comments Father Alive Maternal Grandfather Alive Maternal Grandmother Alive Mother Alive Neg. Paternal Grandfather (Age unk) Lung Can cer Paternal Grandmother (Age 68) Parkinson 's osteoparosis, arthritis Sister Alive Son Social History Tobacco Use Types Packs/Day Years Used Date Current Every Day Smoker Cigarettes 0.5 8 Sta rted: 07/06/2016 Smokeless Tobacco: Never Used Tobacco Cessation: Ready to Quit: No; Co unseling Given: Yes Comments: 5 per day. Alcohol Use Standard Drinks/Week Comments No 0 (1 standard drink = 0.6 oz pure alcoho l) occassional Alcohol Habits Answer Date Recorded How often do you have a drink containing alcohol? Not asked How many drinks containing alcohol do you have on a typical Not asked day when you are drinking? How often do you have six or more drinks on one occasion? No t asked Comment: occassional 04/05/2014 Sex Assigned at Date Recorded Not on file COVID-19 Exposure Response Date Recorded In the last 10 days, have you been in contact with No / Unsu re 04/30/2022 6:[address] someone who was confirmed or suspected to have Coronavirus/COVID-19? Obstetrics History Para Term AB IAB SAB Ectopic Multiple Living Live Births 4 3 2 1 1 0 1 0 0 3 3 Date Outcome GA Total Labor/2nd/3rd Weight Sex Delivery Anes PTL Roya A 1 A5 Name Clin Labor 10/10 Term 37w 8h 00m/ 2.78 kg M Vag Epidu N Roberta 8 9 Ca den 1d (6 lb 2 ral ng u s oz) Delivery Location: [facility] Comments: born at [facility] due to ab normal bones on ultrasound 05/02/2011 Term 38w1d 2.94 kg (6 lb 7.7 F Vag Livin g DARIEL FORREST,BG oz) Delivery Location: [facility] 2016 SAB 10w0d SPONTANEOUS 36w6d 2.52 F Vag Epidural N Living 9 9 DARIEL DrDennis 018 kg (5 FORREST,BG Henrik lb ABIGAIL 8.9 oz) Complications: None Delivery Location: [facility] (ANW [id number] [place]) Last Filed Vital Signs Vital Sign Reading Time Taken Comments Blood Pressure 127/71 04/30/2022 6:[address] CONTRACT[address] Pulse 100 04/30/2022 6:[address] CONTRACT[address] Temperature 37 ??C (98.6 ??F) 04/30/2022 6:[address] CONTRACT[address] Respiratory Rate 18 04/30/2022 6:[address] CONTRACT[address] Oxygen Saturation 98% 04/30/2022 6:[address] CONTRACT[address] Inhaled Oxygen Concentration - - Weight 53.9 kg (118 lb 14.4 oz) 02/19/2021 7:29 PM CDT Height 157.5 cm (5' 2) 02/19/2021 7:29 PM CDT Body Mass Index 21.75 02/19/2021 7:29 PM CDT Plan of Treatment Health Maintenance Due Date Last Done Comments COVID-19 vaccine series (#1) 1990 Pneumococcal series for age 19-64 1994 (1 - PCV) Pap test for age 21-65 09/30/2019 09/29/2016, 01/03/2014, 06/15/2011, Additional history exists BMI (ht and wt on same day) for 08/10/2020 08/10/2019, 1110/2018, age 18+ 04/13/2019, Additional history exists Depression screening for age 12+ 05/20/2021 05/20/2020, , 10/16/2018, Additional history exists Influenza for age 9-49 02/18/2022 03/15/2018, 06/03/2016, 04/24/2015, Additional history exists Tetanus booster 11/04/2027 11/03/2017, 11/19/2008 Tdap Completed 11/03/2017, 11/19/2008 Hepatitis C screening for age Completed 03/07/2019 18-79 Procedures Procedure Name Priority Date/Time Associated Comments Diagnosis URINE CULTURE Routine 04/30/2022 6:22 PM Urinary symptom or ROAD CONTRACTOR sign UA W/ SEDIMENT Patient wait 04/30/2022 6:09 PM Urinary symptom or R esults for this EXAM REFLEXED PER ROAD CONTRACTOR sign procedure are in CRITERIA the results section. from Last 3 Months Results (ABNORMAL) UA W/ SEDIMENT EXAM REFLEXED PER CRITERIA (04/30/2022 6:[address] CONTRACT[address]) [facility] Method Time Signature COLOR Yellow Yellow Color 04/30/2022 [facility] 6:24 PM [facility] CLARITY Slightly Clear 04/30/2022 [facility] Cloudy (A) Clarity 6:24 PM [facility] SPECIFIC 1.025 1.010, 04/30/2022 [facility] GRAVITY,URINE 1.015, 6:24 PM [facility] 1.020, 1.025 [facility] PH,URINE 6.5 6.0, 7.0, 04/30/2022 [facility] 8.0, 5.5, 6:24 PM [facility] 6.5, 7.5, [facility] 8.5 [facility] UROBILINOGEN, Normal Normal EU/dl 04/30/2022 [facility] QUALITATIVE 6:24 PM [facility] PROTEIN, 30 (A) Negative 04/30/2022 [facility] URINE mg/dL 6:24 PM [facility] GLUCOSE, Negative Negative 04/30/2022 [facility] URINE mg/dL 6:24 PM [facility] KETONES,URINE Negative Negative 04/30/2022 [facility] mg/dL 6:24 PM [facility] BILIRUBIN,URI Negative Negative 04/30/2022 [facility] NE 6:24 PM [facility] OCCULT Trace (A) Negative 04/30/2022 [facility] BLOOD,URINE 6:24 PM [facility] NITRITE Positive (A) Negative 04/30/2022 [facility] 6:24 PM [facility] LEUKOCYTE Large (A) Negative 04/30/2022 [facility] ESTERASE 6:24 PM [facility] Specimen Anatomical Collection Method Collection Time Receive d Time (Source) Location / / Volume Laterality Urine URINE SPECIMEN / Non-Blood / 04/30/2022 6:09 PM 04/30 6:[address]AD CONTRACTOR Kailee Trammell NP URINE Performing Organization Address City/State/ZIP Code Phon e Number JANET Spoke [facility] [address] [place] [place] [address] [facility] from Last 3 Months Insurance Payer Benefit Plan / Subscriber ID Effective Dates Phone Addre ss Type Group [employer] [place] [employer] [id number] 2018-Present [address] [address] [place] [address] Guarantor Name Account Type Relation to Date of Phone Billing Address Patient Dariel Personal/Famil Self 1990 [address] (Home) [address] [place] [place] [address] Jean Personal/Famil Self 1990 [address] y (Home) [address] [place] [address] Advance Directives Latest Code Status on File Code Status Date Activated Date Inactivated Comments Full Code 12/15/2017 2:48 PM 12/18/2017 2:58 PM Full Code 05/02/2011 4:41 AM 05/04/2011 4:08 PM Full Code 04/19/2011 5:40 PM 04/19/2011 10:11 PM Full Code 04/14/2011 7:46 PM 04/15/2011 1:04 AM Full Code 04/04/2011 2:19 PM 04/04/2011 7:13 PM Care Teams Nuclear Waste Process Operator Relationship Specialty Start Date End Date Lisa Olmedo MD PCP - General Family Practice 08/19/10 [address] [place] [address] Matt Champagne MD Perinatology TRACTOR OPERATOR Perinatology 03/19/11 Bryant Joseph Perinatology TRACTOR OPERATOR Perinatology 04/30/11 Sunshine Hanson MD PRACTICE ADMINISTRATOR Obstetrics and Gynecology 08/30/11
--- OUTSIDE RECORDS SUMMARY | 2022-05-02 21:56 | XMS_ITS | Encounter Summary ---
:1990 Author Organization [facility] Address [address] [place] [address] Care Team Providers Name Role Phone Unavailable Primary Care Provider Unavailable Encounter Details Date Type Department Care Team Description 07/26/2010 Hospital Encounter HX [facility] Khushi Patterson M.D. [address] [place] [address] (Wo rk) Social History Tobacco Use Types Packs/Day Years Used Date Smoking Tobacco: Never Assessed Sex Assigned at Date Recorded Not on file documented as of this encounter Progress Notes Kwan Patterson M.D. - 07/26/2010 12:00 AM CST [id number] HISTORY OF PRESENT ILLNESS A 20-year-old female who states that she has had a migraine since last night. She has had a history of migraines in the past. This is a very typical one for her. She is having a little bit of blurry vision and a little bit of light sensitivity, as well as a little bit of nausea, but she says that is very typical when she gets her migraines. No unusual symptoms for her headache today. She does, however, have a little bit of a sore throat also and was wondering if she might have strep. VITAL SIGNS Fine per EMR. TEMP: 36.8 PHYSICAL EXAM GENERAL: The patient is awake and alert. Does appear just a little tired, but in no acute distress. HEENT: The oropharynx does show some minimal erythema. Neck is negative for masses or nodes of significance. NEURO: Cranial nerves 2-12 are intact. The neck is supple. Good range of motion and strength in all extremities. She sits up and lays down on the exam table without any difficulty or discomfort. IMPRESSION/REPORT/PLAN DIAGNOSTIC: Quick strep is negative. 1) Non-strep pharyngitis/upper respiratory infection, along with migraine, typical for this patient. PLAN: Toradol 60 intramuscularly is given. She is also given a prescription for Zofran to fill at her pharmacy after she leaves here in case her nausea does not settle down completely with the pain medication. Conservative measures for the sore throat were discussed. Follow up as needed if not improving or if other concerns or problems should arise. Kwan Patterson M.D. [facility] Electronically Signed By:KWAN PATTERSON MD On 07/30/2010 08:13 AM Source: [facility] [id number] Document Id: [id number] ITY ASSURANCE LEAD documented in this encounter Procedure Notes Conversion, Historical Provider Ser - 07/26/2010 4:32 PM CST Rapid Strep A Screen POC Rapid Strep A Screen POC Entered On: 07/26/2010 16:32 QUALITY ASSURANCE LEAD Performed On: 07/26/2010 16:32 QUALITY ASSURANCE LEAD by SRIRAM KEARNEY Rapid Strep A Screen POC Rapid Strep A Screen POC: Negative Internal QC: Pass SRIRAM KEARNEY - 07/26/2010 16:32 QUALITY ASSURANCE LEAD Source: [facility] POWERCHART Document Id: [id number] QUALITY ASSURANCE LEAD!4 documented in this encounter Miscellaneous Notes Miscellaneous - Conversion, Historical Provider Ser - 07/26/2010 4:18 PM QUALITY ASSURANCE LEAD Adult Optoelectronic Technician Intake/History Adult Optoelectronic Technician Intake/History Entered On: 07/26/2010 16:20 QUALITY ASSURANCE LEAD Performed On: 07/26/2010 16:18 QUALITY ASSURANCE LEAD by SRIRAM KEARNEY Intake Chief Complaint: ST, migraine for two days Temperature Oral: 36.8C(Converted to: 98.2DegF) Peripheral Pulse Rate: 88/min Respiratory Rate: 16/min Systolic Blood Pressure: 100mmHg Diastolic Blood Pressure: 60mmHg NIBP Mean: 73mmHg BP Location: Right upper extremity Heart Rhythm: Regular Actual Weight: 50.000kg(Converted to: 110lb 4oz) Dosing Weight Clinic: 50.00kg SRIRAM KEARNEY - 07/26/2010 16:18 QUALITY ASSURANCE LEAD Subjective Pain Symptoms: No SRIRAM KEARNEY - 07/26/2010 16:18 QUALITY ASSURANCE LEAD Dependent Habits Tobacco Use/Currently Using: Yes Exposure to Tobacco Smoke: Patient smokes SRIRAM KEARNEY - 07/26/2010 16:18 QUALITY ASSURANCE LEAD Tobacco Use Grid Type: Cigarettes Cigarette Use Packs/Day: 0.5 SRIRAM KEARNEY - 07/26/2010 16:18 QUALITY ASSURANCE LEAD Allergies Allergies (Active) sulfa drugs Estimated Onset Date: Unspecified ; Reactions: hives ; Created By: NATHAN MNOET; Reaction Status: Active ; Category: Drug ; Substance: sulfa drugs ; Type: Allergy ; Severity: Moderate ; Updated By: NATHAN MONET; Source: Patient ; Reviewed Date: 07/26/2010 16:17 QUALITY ASSURANCE LEAD Source: [facility] POWERCHART Document Id: [id number] QUALITY ASSURANCE LEAD!22 documented in this encounter Plan of Treatment Not on filedocumented as of this encounter Visit Diagnoses Not on filedocumented in this encounter
--- OUTSIDE RECORDS SUMMARY | 2022-05-02 21:56 | XMS_ITS | Clinical Summary ---
:1990 Author Organization [facility] Address [address] [place] [address] Care Team Providers Name Role Phone Elsewhere, Pcp Primary Care Provider Unavailable Source Comments Patient records contain information from all sites at [facility]. For routine questions regarding patient records, call [phone] during business hours, M-F 8:00 AM - 5:00 PM Central Time. Record requests for emergency care only can be directed to [phone] at any time.[facility] Allergies No known active allergies Medications Medication Sig Dispensed Refills Start Date End Date Status cyclobenzaprine Take 1 tablet 21 tablet 0 12/12/2021 Active (FLEXERIL) 10 mg tablet (10 mg total) by mouth 3 (three) times a day as needed for muscle spasms for up to 7 days. Active Problems Problem Noted Date Dependence Drug 03/19/2010 Overview: Drug addiction NOS Encounters Date Type Specialty Care Team Description 04/30/2022 Nurse Triage Family Medicine Nelsy Trujillo R.N. [place] Pain from Last 3 Months Immunizations Name Administration Dates Next Due DTaP (Infanrix, Tripedia) 11/19/2008, 03/08/2005 HepB, Unspecified 03/14/2009, 01/02/2009, 11/19/2008 Influenza, Unspecified 03/14/2009, 04/23/2008 Social History Tobacco Use Types Packs/Day Years Used Date Smoking Tobacco: Unknown Alcohol Use Standard Drinks/Week Comments Yes 0 (1 standard drink = 0.6 oz pure alcoho l) Sex Assigned at Date Recorded Not on file Last Filed Vital Signs Vital Sign Reading Time Taken Comments Blood Pressure 117/70 12/12/2021 10:45 PM CDT Pulse 114 12/12/2021 10:45 PM CDT Temperature 37.3 ??C (99.1 ??F) 12/12/2021 8:07 PM CDT Respiratory Rate - - Oxygen Saturation 95% 12/12/2021 10:45 PM CDT Inhaled Oxygen Concentration - - Weight 57.9 kg (127 lb 9.6 oz) 12/12/2021 8:03 PM CDT Height - - Body Mass Index - - Plan of Treatment Health Maintenance Due Date Last Done Comments HIV Screening 1990 Hepatitis C Screening 1990 COVID-19 Vaccine (#1) 1990 Depression Screening 06/20/2021 (Annual PHQ-2) Influenza Vaccine (#1) 2022 03/15/2018, 07/08/2017, 06/03/2016, Additional history exists DTaP,Tdap,and Td Vaccines 11/04/2027 11/03/2017, 11/19/2008 , (4 - Td or Tdap) 11/19/2008, Additional history exists Hepatitis B Vaccines Completed 03/14/2009, 03/14/2009, 01/02/2009, Additional history exists Pneumococcal vaccine (0-64 Aged Out No lo nger eligible years) based on patient 's age to complete this topic Insurance Payer Benefit Plan Subscriber ID Effective Phone Address Typ e / Group Dates BLUE CROSS BCBS BLUE [id number] 2018-Gerry ATTN: Juan montero HMO BLUE SHIELD PLUS HMO nt [facility] [address] [address] [place] [address] Care Teams Cotton Factor Relationship Specialty Start Date End Date Elsewhere, Pcp PCP - General 08/22/20
--- OUTSIDE RECORDS SUMMARY | 2022-05-02 21:56 | XMS_ITS | Encounter Summary ---
:1990 Author Organization [facility] Address [address] [place] [address] Care Team Providers Name Role Phone Unavailable Primary Care Provider Unavailable Encounter Details Date Type Department Care Team Description 03/22/2010 Hospital Encounter HX NO MAPPING Peter Hanson D.O. [address] [place] [phone] (Wo rk) Social History Tobacco Use Types Packs/Day Years Used Date Smoking Tobacco: Never Assessed Sex Assigned at Date Recorded Not on file documented as of this encounter Plan of Treatment Not on filedocumented as of this encounter Procedures Procedure Name Priority Date/Time Associated Diagnosis Comme nts CT ABDOMEN PELVIS Routine 03/22/2010 5:46 PM Resu lts for this WITH IV CONTRAST CDT procedure a re in the results section. documented in this encounter Results CT Abdomen Pelvis with IV Contrast (03/22/2010 5:46 PM CDT) Anatomical Region Laterality Modality Abdomen, Pelvis N/A Computed Tomography Specimen (Source) Anatomical Collection Method Collection Time Re ceived Time Location / / Volume Laterality 03/22/2010 5:46 PM CDT Addenda Addendum by Provider, Etienne Gross n 03/22/2010 5:46 PM CDT RAD^^^OW CT AbdomenPelvis w contrast 03/22/2010 17:46:00 Narrative 03/23/2010 7:24 AM CDT Contrast-enhanced CT of the abdomen pelv is. INDICATION Vomiting, questionable pneumatosis. FINDINGS Large amount of stool throughout the col on, no evidence of obstruction. Findings are compatible with probable co nstipation. No free intraperitoneal air. ??Normal portal venous gas. ??No ad enopathy. ??No masses. Normal appearance of the lung bases, hea rt. ??Normal appearance of the liver, gallbladder, pancreas, spleen, bilateral adrenal glands and kidneys. IMPRESSION Large amount stool within the colon, fin dings are suggestive of constipation. No pneumatosis. ??No evidence of obstruc tion. Rg Franco, ?? jwjayleen ?D: 1 M.D. ? THIS IS AN ELEC TRONICALLY VERIFIED REPORT 03/23/2010 7:24 AM: ??Juan Duffy Procedure Note Rg Franco M.D. / Provider, Kelsie he M.D. - 11/11/2016 Contrast-enhanced CT of the abdomen pelv is. INDICATION Vomiting, questionable pneumatosis. FINDINGS Large amount of stool throughout the col on, no evidence of obstruction. Findings are compatible with probable co nstipation. No free intraperitoneal air. Normal portal venous gas. No adenop athy. No masses. Normal appearance of the lung bases, hea rt. Normal appearance of the liver, gallbladder, pancreas, spleen, bilateral adrenal glands and kidneys. IMPRESSION Large amount stool within the colon, fin dings are suggestive of constipation. No pneumatosis. No evidence of obstructi on. melissa Duffy T: 07:24 am M.DDennis THIS IS AN ELECTRONICALLY VERIFIED REPORT 03/23/2010 7:24 AM: Ness Duffy Sandrita Galan R.T.(R)(CT), R.T.(R) IMG CT PROCEDUR ES documented in this encounter Visit Diagnoses Not on filedocumented in this encounter
--- OUTSIDE RECORDS SUMMARY | 2022-05-02 21:56 | XMS_ITS | Encounter Summary ---
:1990 Author Organization [facility] Address [address] [place] [address] Care Team Providers Name Role Phone Unavailable Primary Care Provider Unavailable Encounter Details Date Type Department Care Team Description 06/08/2010 Hospital Encounter [facility]X [facility] Shantal Garcia AP RN, C.N.P. [address] [place], [place] [phone] (Wo rk) Social History Tobacco Use Types Packs/Day Years Used Date Smoking Tobacco: Never Assessed Sex Assigned at Date Recorded Not on file documented as of this encounter Miscellaneous Notes Miscellaneous - Jannette Garcia M.D. - 06/09/2010 8:26 AM CST Reminder Msg Document Contains Addenda Addendum by JANNETTE GARCIA MD on 02 July 2010 09:30:29 PRODUCT DEVELOPMENT COORDINATOR normal lipase From: JANNETTE GARCIA MD To: CUAUHTEMOC RINCON Sent: 06/09/2010 08:26:18 PRODUCT DEVELOPMENT COORDINATOR ! Show up: 06/09/2010 08:25:00 PRODUCT DEVELOPMENT COORDINATOR Subject: Reminder Msg Actions: Notify patient of results Due Date/Time: 06/09/2010 08:25:00 PRODUCT DEVELOPMENT COORDINATOR Source: [facility] POWERCHART Document Id: [id number] Electronically signed by [employer] Operations Research Manager [id number] at 11/22/2016 5:56 AM CDT Miscellaneous - Jannette Garcia M.D. - 06/08/2010 5:12 PM CST Reminder Msg Document Contains Addenda Addendum by FERNY FUENTES on 09 June 2010 08:37:23 PRODUCT DEVELOPMENT COORDINATOR CALLED WITH RESULTS From: JANNETTE GARCIA MD To: FERNY FUENTES Sent: 06/08/2010 17:12:58 PRODUCT DEVELOPMENT COORDINATOR ! Show up: 06/08/2010 17:12:00 PRODUCT DEVELOPMENT COORDINATOR Subject: Reminder Msg Actions: Notify patient of results Due Date/Time: 06/08/2010 17:12:00 PRODUCT DEVELOPMENT COORDINATOR Source: [facility] POWERCHART Document Id: [id number] Electronically signed by [employer] Healthcarejayleen Operations Research Manager [id number] at 11/22/2016 5:56 AM CDT documented in this encounter Plan of Treatment Not on filedocumented as of this encounter Visit Diagnoses Not on filedocumented in this encounter
--- OUTSIDE RECORDS SUMMARY | 2022-05-02 21:56 | XMS_ITS | Encounter Summary ---
:1990 Author Organization [facility] Address [address] [place] [address] Care Team Providers Name Role Phone Elsewhere, Pcp Primary Care Provider Unavailable Reason for Visit Reason Comments Finger Injury Encounter Details Date Type Department Care Team Description 02/19/2021 Emergency [facility] [address] [place] [phone] Social History Tobacco Use Types Packs/Day Years Used Date Smoking Tobacco: Never Assessed Sex Assigned at Date Recorded Not on file documented as of this encounter Plan of Treatment Not on filedocumented as of this encounter Visit Diagnoses Not on filedocumented in this encounter Care Teams Maintenance Apprentice Relationship Specialty Start Date End Date Elsewhere, Pcp PCP - General 08/22/20 documented as of this encounter
--- OUTSIDE RECORDS SUMMARY | 2022-05-02 21:56 | XMS_ITS | Encounter Summary ---
:1990 Author Organization [facility] Address [address] [place] [address] Care Team Providers Name Role Phone Unavailable Primary Care Provider Unavailable Encounter Details Date Type Department Care Team Description 10/15/2010 Hospital Encounter HX NO MAPPING Provider, Historical Social History Tobacco Use Types Packs/Day Years Used Date Smoking Tobacco: Never Assessed Sex Assigned at Date Recorded Not on file documented as of this encounter Plan of Treatment Not on filedocumented as of this encounter Visit Diagnoses Not on filedocumented in this encounter
--- OUTSIDE RECORDS SUMMARY | 2022-05-02 21:56 | XMS_ITS | Encounter Summary ---
:1990 Author Organization [facility] Address [address] [place] [address] Care Team Providers Name Role Phone Elsewhere, Pcp Primary Care Provider Unavailable Reason for Visit Reason Comments Flank Pain Encounter Details Date Type Department Care Team Description 04/30/2022 Nurse Triage [facility] Nelsy Pak R.N. Flank Pain Social History Tobacco Use Types Packs/Day Years Used Date Smoking Tobacco: Unknown Alcohol Use Standard Drinks/Week Comments Yes 0 (1 standard drink = 0.6 oz pure alcoho l) Sex Assigned at Date Recorded Not on file documented as of this encounter Miscellaneous Notes Telephone Encounter - Nelsy Trujillo R.N. - 04/30/2022 10:13 AM CST Chief Complaint / Reason for Call Patient is a 31 y.o. female calling regarding Flank Pain. Assessment Concern: left flank pain, burning pain in her abdomen when she urinates and urinary frequency. Present for: She is not sure when symptoms started but thinks it has been less than seven days She is not seeing any blood in her urine and does not think she has a fever. No nausea or vomiting. Home cares tried: none tried. Calling to request: an appointment The recommended disposition is Instruct patient to go to nearest Emergency Department (overriding See a health care provider within 4 hours). Florecita was warm transferred to the [facility] appointment desk. Due to access availability today she was directed to present to the nearest Emergency Department. She states she will do so. Reason for Disposition Pain or burning with passing urine (urination) Protocols used: Flank [id number] Care Advice Patient/Caregiver understands and will follow care advice?: Yes, able to teach back SEE HCP (OR PCP TRIAGE) WITHIN 4 HOURS: * IF OFFICE WILL BE OPEN: You need to be seen within the next 3 or 4 hours. Call your doctor (or SIDEWALK INSPECTOR/PA) now or as soon as the office opens. * IF OFFICE WILL BE CLOSED AND NO PCP (PRIMARY CARE PROVIDER) SECOND-LEVEL TRIAGE: You need to be seen within the next 3 or 4 hours. A nearby Urgent Care Center (UCC) is often a good source of care. Another choice is to go to the ED. Go sooner if you become worse. * IF OFFICE WILL BE CLOSED AND PCP SECOND-LEVEL TRIAGE REQUIRED: You may need to be seen. Your doctor (or SIDEWALK INSPECTOR/PA) will want to talk with you to decide what's best. I'll page the on-call provider now. Ifyou haven't heard from the provider (or me) within 30 minutes, call again. NOTE: If on-call providercan't be reached, send to UCC or ED. NOTE TO TRIAGER: * Use nurse judgment to select the most appropriate source of care. * Consider both the urgency of the patient's symptoms AND what resources may be needed to evaluate and manage the patient. SOURCES OF CARE: * ED: Patients who may need surgery or hospital admission need to be sent to an ED. So do most patients with serious symptoms or complex medical problems. * UCC: Some UCCs can manage patients who are stable and have less serious symptoms (e.g., minor illnesses and injuries). The triager must know the UCC capabilities before sending a patient there. If unsure, call ahead. * OFFICE: If patient sounds stable and not seriously ill, consult PCP (or follow your office policy)to see if patient can be seen NOW in office. DRINK EXTRA FLUIDS: * Drink extra fluids. * Drink 8 to 10 cups (1,800 to 2,400 ml) of liquids a day. * Reason: This will water-down your urine and make it less painful to pass. If there is an infection, this will help wash out the germs from your bladder. PAIN MEDICINES: * For pain relief, you can take either acetaminophen, ibuprofen, or naproxen. * They are krff-kwr-cdwifuy (OTC) pain drugs. You can buy them at the drugstore. * ACETAMINOPHEN - REGULAR STRENGTH TYLENOL: Take 650 mg (two 325 mg pills) by mouth every 4 to 6 hours as needed. Each Regular Strength Tylenol pill has 325 mg of acetaminophen. The most you should take each day is 3,250 mg (10 pills a day). * ACETAMINOPHEN - EXTRA STRENGTH TYLENOL: Take 1,000 mg (two 500 mg pills) every 8 hours as needed. Each Extra Strength Tylenol pill has 500 mg of acetaminophen. The most you should take each day is 3,000 mg (6 pills a day). * IBUPROFEN (E.G., MOTRIN, ADVIL): Take 400 mg (two 200 mg pills) by mouth every 6 hours. The most you should take each day is 1,200 mg (six 200 mg pills), unless your doctor has told you to take more. * NAPROXEN (E.G., ALEVE): Take 220 mg (one 220 mg pill) by mouth every 8 to 12 hours as needed. You may take 440 mg (two 220 mg pills) for your first dose. The most you should take each day is 660 mg (three 220 mg pills a day), unless your doctor has told you to take more. PAIN MEDICINES - EXTRA NOTES AND WARNINGS: * Use the lowest amount of medicine that makes your pain better. * Acetaminophen is thought to be safer than ibuprofen or naproxen in people over 65 years old. Acetaminophen is in many OTC and prescription medicines. It might be in more than one medicine that you are taking. You need to be careful and not take an overdose. An acetaminophen overdose can hurt the liver. * [employer] ([employer] the company that makes Tylenol, has different dosage instructions for Tylenol in [place] and the [place]. In [place], the maximum recommended dose per day is 4,000 mg or twelve Regular-Strength (325 mg) pills. In the [place], the maximum dose per day is ten Regular-Strength (325 mg) pills. * [employer], the company that makes Aleve, has different dosage instructions for Aleve in [place] and [facility]. In [place], the maximum recommended dose per day is 440 mg (2 pills or caplets). In the [place], the maximum dose per day is 660 mg (3 pills or caplets). * CAUTION: Do not take acetaminophen if you have liver disease. * CAUTION: Do not take ibuprofen or naproxen if you have stomach problems, kidney disease, are , or have been told by your doctor to avoid this type of anti-inflammatory drug. Do not take ibuprofen or naproxen for more than 7 days without consulting your doctor. * Before taking any medicine, read all the instructions on the package. CALL BACK IF: * You become worse CARE ADVICE given per Flank Pain (Adult) guideline. ING PERSONS INVESTIGATOR documented in this encounter Plan of Treatment Not on filedocumented as of this encounter Visit Diagnoses Not on filedocumented in this encounter Care Teams Board Liner Operator Relationship Specialty Start Date End Date Elsewhere, Pcp PCP - General 08/22/20 documented as of this encounter
--- OUTSIDE RECORDS SUMMARY | 2022-05-02 21:56 | XMS_ITS | Encounter Summary ---
:1990 Author Organization [facility] Address [address] [place] [address] Care Team Providers Name Role Phone Unavailable [...]
--- OUTSIDE RECORDS SUMMARY | 2022-05-02 21:56 | XMS_ITS | Encounter Summary ---
:1990 Author Organization [facility] Address [address] [place] [address] Care Team Providers Name Role Phone Unavailable Primary Care Provider Unavailable Encounter Details Date Type Department Care Team Description 03/20/2010 Hospital Encounter HX NO MAPPING Prosper Fuller M.D. [address] [place] [phone] (Wo rk) Social History Tobacco Use Types Packs/Day Years Used Date Smoking Tobacco: Never Assessed Sex Assigned at Date Recorded Not on file documented as of this encounter Plan of Treatment Not on filedocumented as of this encounter Procedures Procedure Name Priority Date/Time Associated Diagnosis Comme nts DX ABDOMEN SUPINE Routine 03/20/2010 7:00 PM Resu lts for this WITH UPRIGHT OR CDT procedure ar e in DECUBITUS 2 VIEWS the result s section. documented in this encounter Results DX Abdomen Supine with Upright or Decubitus 2 Views (03/20/2010 7:00 PM CDT) Anatomical Region Laterality Modality Abdomen Right Radiographic Imaging Specimen (Source) Anatomical Collection Method Collection Time Re ceived Time Location / / Volume Laterality 03/20/2010 7:00 PM CDT Addenda Addendum by Provider, Etienne Gross 03/20/2010 7:00 PM CDT RAD^^^OW XR Abdomen 2 Views 03/20/2010 19:00:40 Narrative 03/22/2010 12:30 PM CDT Abdomen pelvis. INDICATION Bowel problems, not otherwise specified. FINDINGS Mildly prominent air-filled loops of bow el in the central abdomen and pelvis. Since March 19, 2010 the umbilical p iercing has been removed, in addition there is probable developing pneumatosis . No appreciable free intraperitoneal air. ??Large amount stool within the rec mandy vault. If clinically indicated recommend consid eration for contrast enhanced CT of the abdomen pelvis. Results discussed with Dr. Weeks (Octobe r , 2009, 12:20 p.m.). Rg Franco, ?? jws ?D: 1 M.D. ? THIS IS AN ELEC TRONICALLY VERIFIED REPORT 03/22/2010 12:30 PM: ??Rg Franco M.D. Procedure Note Rg Franco M.D. / Provider, Kelsie he M.D. - 11/11/2016 Abdomen pelvis. INDICATION Bowel problems, not otherwise specified. FINDINGS Mildly prominent air-filled loops of bow el in the central abdomen and pelvis. Since March 19, 2010 the umbilical p iercing has been removed, in addition there is probable developing pneumatosis . No appreciable free intraperitoneal air. Large amount stool within the recta l vault. If clinically indicated recommend consid eration for contrast enhanced CT of the abdomen pelvis. Results discussed with Dr. Weeks (Octobe r 2009, 12:20 p.m.). melissa Duffy T: 12:30 pm M.D. THIS IS AN ELECTRONICALLY VERIFIED REPORT 03/22/2010 12:30 PM: Kianna Duffy Historical Provider IMG DIAGNOSTIC IMAGING PROCE DURES documented in this encounter Visit Diagnoses Not on filedocumented in this encounter
--- OUTSIDE RECORDS SUMMARY | 2022-05-02 21:56 | XMS_ITS | Encounter Summary ---
:1990 Author Organization [facility] Address [address] [place] [address] Care Team Providers Name Role Phone Unavailable Primary Care Provider Unavailable Encounter Details Date Type Department Care Team Description 03/20/2010 Hospital Encounter HX NO MAPPING Cole Bustos M.D. [address] [place], [place] [address] (Wo rk) Social History Tobacco Use Types Packs/Day Years Used Date Smoking Tobacco: Never Assessed Sex Assigned at Date Recorded Not on file documented as of this encounter Plan of Treatment Not on filedocumented as of this encounter Visit Diagnoses Not on filedocumented in this encounter
--- OUTSIDE RECORDS SUMMARY | 2022-05-02 21:56 | XMS_ITS | Encounter Summary ---
:1990 Author Organization [facility] Address [address] [place] [address] Care Team Providers Name Role Phone Unavailable Primary Care Provider Unavailable Encounter Details Date Type Department Care Team Description 05/18/2010 Hospital Encounter HX NO MAPPING Can Zamorano M.D. [address] [place] [address] (Wo rk) Social History Tobacco Use Types Packs/Day Years Used Date Smoking Tobacco: Never Assessed Sex Assigned at Date Recorded Not on file documented as of this encounter Plan of Treatment Not on filedocumented as of this encounter Visit Diagnoses Not on filedocumented in this encounter
--- OUTSIDE RECORDS SUMMARY | 2022-05-02 21:56 | XMS_ITS | Encounter Summary ---
:1990 Author Organization [facility] Address [address] [place] [address] Care Team Providers Name Role Phone Unavailable Primary Care Provider Unavailable Encounter Details Date Type Department Care Team Description 05/12/2010 Hospital Encounter [facility]X [facility] INTERNMED Hang Carrera APRN, C.N.P. [address] [place] [address] (Wo rk) Social History Tobacco Use Types Packs/Day Years Used Date Smoking Tobacco: Never Assessed Sex Assigned at Date Recorded Not on file documented as of this encounter H&P Notes Hang Carrera APRN, C.N.P. - 05/12/2010 12:00 AM CST [id number] CHIEF COMPLAINT / REASON FOR VISIT Falls asleep easily. HISTORY OF PRESENT ILLNESS Florecita, who does not have an established primary care provider here at the [facility], presents to me today for an evaluation of falling asleep easily. She states that one of her main concerns today is whether or not she may have narcolepsy. She states her father was diagnosed with narcolepsy at approximately age 40. However, had had symptoms prior to this diagnosis. She states, mainly over the last 5 days, she has been having increasing difficulty staying awake. She states that she falls asleep quite easily and has been going to bed much earlier than usual. When questioned about her normal sleep habits, she states that, prior to the last week, she would typically go to bed at approximately 1:00 in the morning and would need to wake up at approximately 5 or 5:30 in the morning to go to work. She states that she has tolerated this type of sleep schedule for several months to years. She states more recently, over the last week, she has been going to bed at 9 or 9:30 p.m. and getting up at 5 to 5:30 in the morning again for work. She states that, when she does go to bed either at 1 a.m. or 9 p.m., she does sleep all night long. She states it is rare for her to wake up in the middle of the night and not be able to go back to sleep. She states that she does live with boyfriend and does deny that she has ever been told that she has restlessness during the night and denies ever being told that she snored or gasped for breath in her sleep. She states her eating habits have generally been good. She does have history of substance abuse, specifically methamphetamines, in the past and is followed by a Dr. Chadd Coronado whose traditional clinic is out of the [facility]; however, does come to [facility] for consultations. She states that she has seen Dr. Coronado for approximately 2 years and has been being treated with Suboxone for the last 2 years. She states her last relapse on methamphetamine was 5-1/2 months ago. She denies any recent changes in her Suboxone dosing, stating that the last change was approximately 3 months ago and it was a reduction in her dose. She states that she is sexually active with her boyfriend and denies any new partners. She states she does take her control pill regularly, but states that it is a possibility that she may be . CURRENT MEDICATIONS Suboxone 8-mg tablets, one tablet in the morning and one-half tablet in the evening. Seasonique one tablet daily. Metamucil as needed. MiraLax as needed. Imitrex 6 mg subcutaneously as needed for migraine headache. ALLERGIES Sulfa medications. SYSTEMS REVIEW GENERAL: Positive for malaise and fatigue. HEAD: Negative for headaches, lightheadedness, dizziness. EYES: Negative for double vision, blurry vision, loss of vision. EARS: Negative for loss of hearing or tinnitus. MOUTH: Negative for decreased taste. Negative for metallic taste in mouth. LUNGS: Negative for cough, shortness of breath, PND or orthopnea. HEART: Negative for chest pain, palpitations. ABDOMEN: Negative for abdominal pain. Positive for recent history of constipation. : Negative for vaginal discharge. Positive for recent spotting. Negative for dysuria, urinary frequency, hematuria. EXTREMITIES: Negative for edema. PAST MEDICAL / SURGICAL HISTORY 1) History of substance abuse. 2) Migraine headaches. 3) Constipation. SOCIAL HISTORY Unmarried. Lives with boyfriend. Has one male child, age 19 months. Employment: Works at [employer] 5 days a week. HEALTH HABITS: Negative for tobacco use. Positive for illicit drug use, methamphetamine. Been abstinent, per patient report, for 5-1/2 months. FAMILY HISTORY Positive for hypertension. Positive for thyroid dysfunction. Positive for narcolepsy in biological father. VITAL SIGNS TEMP: 36.2 degreesC PULSE: 68 RESP RATE: 12 BLOOD PRESSURE: 90/50 WEIGHT: 47.7 kg PHYSICAL EXAM GENERAL: Well-developed female in no acute distress. Alert and oriented x3. HEAD: Normocephalic, atraumatic. EYES: Pupils equal and reactive to light. Extraocular movements intact. No nystagmus noted. Sclerae nonicteric. ENT: TMs pearly mejia bilaterally with good light reflex bilaterally. Mouth mucosa pink and moist. No obvious lesions present. Pharynx without exudate. Neck is supple. Trachea midline. THYROID: No thyromegaly. LYMPH NODES: No cervical lymphadenopathy. LUNGS: Clear to auscultation bilaterally. No rales or wheezes. HEART: Regular rate and rhythm. Normal S1, S2. No murmurs noted. ABDOMEN: Soft, nontender, nondistended. Bowel sounds active. No organomegaly. No other palpable masses. EXTREMITIES: Warm without cyanosis, clubbing or edema. NEURO: Cranial nerves II through XII grossly intact. GAIT: Normal. Romberg negative. IMPRESSION / REPORT / PLAN 1) Fatigue and malaise. Difficult to differentiate as to the cause of her current symptoms; however, do believe that narcolepsy, though does have a family history, is not the most likely cause. This is more recent finding, ongoing now for less than a week. Multiple differentials today, including infection, anemia, as well as sleep disturbance. I did go ahead and check a CBC, basic metabolic profile, monospot, urine and a urinalysis looking for infection. Certainly if she has a urinary tract infection or mononucleosis, this could help explain her current symptoms. We will await results of testing to further differentiate. If all of her tests come back within normal limits, I do think more likely that sleep disturbance is more likely candidate, as she, by report, has been only getting 4 hours of sleep per night on a regular basis. I did discuss with her today continuing with good sleep habits and see if this makes a difference in her current symptoms. She did have recent ER visit for constipation and she did have a thyroid level checked and was within normal limits at that time. I do not see any indication today to repeat that testing. Certainly if her symptoms continue to be problematic, could recheck a TSH with a T4 and T3 level. She was instructed to return to the clinic if she continues to experience symptoms and if her laboratory testing is within normal limits. I will follow up with her on her laboratory testing when those results are available. Certainly if no lab result is able to explain her current symptoms and they do continue to persist despite good sleep habits, certainly would wish her to have further evaluation both for psychological disorder, potential use and misuse of the Suboxone as well as entertain the possibility of narcolepsy, would need to send her to a sleep center for further evaluation of this, and this was discussed that could refer to [facility] for further evaluation, if needed. We will follow up with her on her laboratory results when available. She was instructed to return to the clinic with persistent or worsening symptoms. Hang Carrera, C.NDennisPDennis cla Electronically Signed By:HANG CARRERA INTENSIVE CARE NURSE On 05/18/2010 02:37 PM Source: [facility] MHSDOLBEYNONRADSYS Document Id: [id number] GER SPANISH documented in this encounter Miscellaneous Notes Miscellaneous - Sammy Holt, SakinaPDennisN. - 05/12/2010 10:05 AM MANAGER SPANISH Adult Forex Trader Intake/History Adult Forex Trader Intake/History Entered On: 05/12/2010 10:09 MANAGER SPANISH Performed On: 05/12/2010 10:05 MANAGER SPANISH by SAMMY HOLT Intake Chief Complaint: FALLING ASLEEP OFTEN Peripheral Pulse Rate: 68/min Respiratory Rate: 12/min (LOW) Systolic Blood Pressure: 90mmHg (LOW) Diastolic Blood Pressure: 50mmHg (LOW) NIBP Mean: 63mmHg Actual Weight: 47.700kg Actual Weight Conversion to Pounds: 104.940lb Dosing Weight Clinic: 47.70kg SAMMY OHLT 05/12/2010 10:05 MANAGER SPANISH Subjective Pain Symptoms: No SAMMY HOLT 05/12/2010 10:05 MANAGER SPANISH Dependent Habits Tobacco Use/Currently Using: Yes Exposure to Tobacco Smoke: Patient smokes SAMMY HOLT 05/12/2010 10:05 MANAGER SPANISH Tobacco Use Grid Type: Cigarettes Cigarette Use Packs/Day: 0.5 SAMMY HOLT 05/12/2010 10:05 MANAGER SPANISH Alcohol Use: No SAMMY HOLT 05/12/2010 10:05 MANAGER SPANISH Allergies Allergies (Active) sulfa drugs Estimated Onset Date: Unspecified ; Created By: MARLINE CONTRERAS LPN; Reaction Status: Active ; Category: Drug ; Substance: sulfa drugs ; Type: Allergy ; Updated By: MARLINE CONTRERAS LPN; Reviewed Date: 05/12/2010 10:05 MANAGER SPANISH Source: [facility] POWERCHART Document Id: [id number] MANAGER SPANISH!21 GER SPANISH documented in this encounter Plan of Treatment Not on filedocumented as of this encounter Visit Diagnoses Not on filedocumented in this encounter
--- OUTSIDE RECORDS SUMMARY | 2022-05-02 21:56 | XMS_ITS | Encounter Summary ---
:1990 Author Organization [facility] Address [address] [place] [address] Care Team Providers Name Role Phone Unavailable Primary Care Provider Unavailable Encounter Details Date Type Department Care Team Description 03/22/2010 Hospital Encounter HX NO MAPPING Provider, Historical Social History Tobacco Use Types Packs/Day Years Used Date Smoking Tobacco: Never Assessed Sex Assigned at Date Recorded Not on file documented as of this encounter Plan of Treatment Not on filedocumented as of this encounter Visit Diagnoses Not on filedocumented in this encounter
--- OUTSIDE RECORDS SUMMARY | 2022-05-02 21:56 | XMS_ITS | Encounter Summary ---
:1990 Author Organization [facility] Address [address] [place] [address] Care Team Providers Name Role Phone Unavailable Primary Care Provider Unavailable Encounter Details Date Type Department Care Team Description 05/06/2005 Hospital Encounter HX [facility] OUTPT Jenaro Arzate, C.N.P. Social History Tobacco Use Types Packs/Day Years Used Date Smoking Tobacco: Never Assessed Sex Assigned at Date Recorded Not on file documented as of this encounter Plan of Treatment Not on filedocumented as of this encounter Visit Diagnoses Not on filedocumented in this encounter
--- OUTSIDE RECORDS SUMMARY | 2022-05-02 21:56 | XMS_ITS | Encounter Summary ---
:1990 Author Organization [facility] Address [address] [place] [address] Care Team Providers Name Role Phone Unavailable Primary Care Provider Unavailable Encounter Details Date Type Department Care Team Description 04/23/2010 Hospital Encounter HX [facility] FAMILYPRA Anderson Tolliver M.D. [address] [place] [address] (Wo rk) Social History Tobacco Use Types Packs/Day Years Used Date Smoking Tobacco: Never Assessed Sex Assigned at Date Recorded Not on file documented as of this encounter Progress Notes Anderson Tolliver M.D. - 04/23/2010 12:00 AM CDT [id number] HISTORY OF PRESENT ILLNESS This is a 19-year-old female who comes in today with concerns about sinus pain and pressure. Patient states that she has been having sinus congestion for approximately the last 1-1/2 weeks. Pain has been worsening over the last few days. She describes the pain as a burning and pressure sensation in her face, both in the maxillary area and, to a lesser degree, in the frontal area. She has had some purulent nasal drainage. She also has developed a sore throat approximately 2 days ago and a slight cough. She did vomit x1 this morning. Pain is worsened when she bends over to pick anything up. She has been trying [id number] decongestants but these have not helped. She has been feeling hot and cold for the last 2 days. CURRENT MEDICATIONS Reviewed and no changes per EMR. ALLERGIES Reviewed and no changes per EMR. SYSTEMS REVIEW She denies any vision changes. No hearing changes. No difficulty swallowing. No chest pain or shortness of breath. No abdominal pain. No difficulty urinating. No changes in stools. No skin rashes. No swelling. VITAL SIGNS WEIGHT: 49.3 kg BLOOD PRESSURE: 108/60 PULSE: 100 TEMP: 37.1 PHYSICAL EXAM GENERAL: She is alert and oriented x3, appears in no acute distress. HEENT: Pupils are equal, round, and reactive to light and accommodation. Extraocular movements are intact. TMs are clear bilaterally. Oropharynx shows some posterior nasal drainage. She is tender to palpation over the maxillary and frontal sinuses. Neck is supple without any lymphadenopathy. HEART: Regular rate and rhythm, without any murmurs, rubs or gallops. LUNGS: Clear to auscultation bilaterally. IMPRESSION / REPORT / PLAN 1) Acute sinusitis. Will treat with doxycycline 100 mg 1 tablet by mouth twice daily for 10 days. She is to give us a call if she is not improving during the antibiotic course. Anderson Tolliver M.D. 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 - 04/23/2010 4:55 PM CDT Ambulatory Patient Summary [facility] [address] [place] [address] Visit Information Name: ABIGAIL FIEDL Current Date: 04/23/2010 16:55:45 Primary Care Provider: ANYA EDGE Your Medications Here is a list of your medications. It is important to take your medications as directed. Use a pillbox or chart to help remind you to take your medications. Please let your doctor or nurse know if you have problems taking your medications. Medication/Strength Dose Route Frequency Indications/Special Instructions/Comments doxycycline (DOXYCYCLINE 100MG) 100 mg Oral two times a day ondansetron (Zofran) sumatriptan (Imitrex) 6 mg Subcutaneous once a day psyllium (Metamucil) scoop Oral two times a day buprenorphine-naloxone (Suboxone 8 mg-2 mg sublingual tablet) 2 tab(s) Sublingual once a day ethinyl estradiol-levonorgestrel (Seasonique oral tablet) 1 tab(s) Oral once a day Your Allergies & Intolerances Substance Reaction Symptoms Category Comments sulfa drugs Drug Your Problem List Problem Status Onset [...] Chlamydia every 1 year Females Age 15-24 04/23/2010 Screening Pap Smear every 3 years Women 21-65 04/23/2010 Checks for signs of cancer of the cervix. Lipid Panel every 5 years Age 20-75 04/23/2010 Checks blood for good (HDL) and bad (LDL) cholesterol. Know your numbers, they are one indicator of your risk for heart attack and stroke. Vaccine: Tetanus every 10 years 11/19/2008 11/17/2018 Immunization to help prevent you from getting the serious disease Tetanus (Lockjaw). Your Upcoming Appointments Date Time Location Reason Provider No Appointments found Your Goals/Additional instructions: Source: [facility] Pet [employer] TelevisionCHART Document Id: [id number] Electronically signed by Conversion, [facility] Forming Mill Operator [id number] at 11/22/2016 5:06 AM CDT Miscellaneous - Anderson Tolliver M.D. - 04/23/2010 4:55 PM CDT Ambulatory Depart Summary [address] [address] Visit Information Name: ABIGAIL FIEDL Current Date: 04/23/2010 16:55:44 Primary Care Provider: ANYA EDGE [facility] ABIGAIL FIELD has been given the following list of medications: Your Medications It is important to take your medications as directed. Use a pill box or chart to help remind you to take your medications. Please let your doctor or nurse know if you have problems taking your medications. Medication/Strength Dose Route Frequency Indications/Special Instructions/Comments doxycycline (DOXYCYCLINE 100MG) 100 mg Oral two times a day ondansetron (Zofran) sumatriptan (Imitrex) 6 mg Subcutaneous once a day psyllium (Metamucil) scoop Oral two times a day buprenorphine-naloxone (Suboxone 8 mg-2 mg sublingual tablet) 2 tab(s) Sublingual once a day ethinyl estradiol-levonorgestrel (Seasonique oral tablet) 1 tab(s) Oral once a day Additional Information: Yes - Current list of reconciled medications is provided and explained to the patient and/or family, guardian/caregiver. Source: [facility] CallResto Document Id: [id number] Electronically signed by Conversion, [facility] Forming Mill Operator [id number] at 11/22/2016 5:06 AM CDT Miscellaneous - Conversion, Historical Provider Ser - 04/23/2010 3:40 PM CDT Adult International Travel Consultant Intake/History Adult International Travel Consultant Intake/History Entered On: 04/23/2010 15:44 CDT Performed On: 04/23/2010 15:40 CDT by MEGHANN LEDEZMA Intake Chief Complaint: sore throat, sore neck, sinus congestion, fever, vomiting Onset of Symptoms: 1 week Temperature Oral: 37.1C(Converted to: 98.8DegF) Peripheral Pulse Rate: 100/min Systolic Blood Pressure: 108mmHg Diastolic Blood Pressure: 60mmHg NIBP Mean: 76mmHg BP Location: Right upper extremity Actual Weight: 49.300kg(Converted to: 108lb 11oz) Weight Source: Standing scale Dosing Weight Clinic: 49.30kg MEGHANN LEDEZMA 04/23/2010 15:40 CDT Subjective Pain Symptoms: Yes MEGHANN LEDEZMA 04/23/2010 15:40 CDT Pain Pain Assessment Grid Pain 1 Pain 2 Location: Throat Neck MEGHANN LEDEZMA 04/23/2010 15:40 CDT MEGHANN LEDEZMA 04/23/2010 15:40 CDT Dependent Habits Tobacco Use/Currently Using: Yes Tobacco Use/Advised to Quit: Yes Exposure to Tobacco Smoke: Patient smokes MEGHANN LEDEZMA 04/23/2010 15:40 CDT Tobacco Use Grid Type: Cigarettes Cigarette Use Packs/Day: 0.5 MEGHANN LEDEZMA 04/23/2010 15:40 CDT Alcohol Use: No MEGHANN LEDEZMA 04/23/2010 15:40 CDT Allergies Allergies (Active) sulfa drugs Estimated Onset Date: Unspecified ; Created By: MARLINE CONTRERAS LPN; Reaction Status: Active ; Category: Drug ; Substance: sulfa drugs ; Type: Allergy ; Updated By: MARLINE CONTRERAS LPN; Reviewed Date: 04/23/2010 15:39 CDT Source: [facility] POWERCHART Document Id: [id number] CDT!30 documented in this encounter Plan of Treatment Not on filedocumented as of this encounter Visit Diagnoses Not on filedocumented in this encounter
--- OUTSIDE RECORDS SUMMARY | 2022-05-02 21:56 | XMS_ITS | Encounter Summary ---
:1990 Author Organization [facility] Address [address] [place] [address] Care Team Providers Name Role Phone Unavailable Primary Care Provider Unavailable Encounter Details Date Type Department Care Team Description 08/01/2010 Hospital Encounter HX NO MAPPING Cole Bustos M.D. [address] [place], [place] [address] (Wo rk) Social History Tobacco Use Types Packs/Day Years Used Date Smoking Tobacco: Never Assessed Sex Assigned at Date Recorded Not on file documented as of this encounter Plan of Treatment Not on filedocumented as of this encounter Visit Diagnoses Not on filedocumented in this encounter
--- OUTSIDE RECORDS SUMMARY | 2022-05-02 21:56 | XMS_ITS ---
:1990 Author Care Team Providers Name Role Phone No [facility] Primary Care Provider Unavailable Allergies Code Code System Name Reaction Severity Status Onset Sulfa (Sulfonamide Antibiotics) Hives ? Active ? Medications Name Status Start Date Stop Date ? ? albuterol sulfate HFA 90 mcg/actuation aerosol inhaler Active ? Not available Inhale 1-2 Puffs by mouth every 4 hours if needed. amoxicillin 500 mg capsule Completed ? 07/21 TK 1 C PO BID FOR 10 DAYS atomoxetine 10 mg capsule Completed ? 2020 TAKE ONE CAPSULE BY MOUTH EVERY DAY IN THE MORNING. azithromycin 250 mg tablet Active ? Not a vailable TAKE 2 TABLETS (500 MG) BY ORAL ROUTE O NCE DAILY FOR 1 DAY THEN 1 TABLET (250 MG) BY ORAL ROUTE ONCE DAILY FOR 4 DAYS cyclobenzaprine 10 mg tablet Active ? Not available Take 1 tablet by mouth 3 times daily if needed for Muscle Spasm . prednisone 20 mg tablet Completed ? 07/21/19 21 TAKE ONE TABLET BY MOUTH TWICE DAILY FOR 5 DAYS. trazodone 50 mg tablet Active ? Not avail able Problems Name Status Onset Date Source ? Hypoglycemia Active ? ? Anxiety Disorder Active ? ? Drug Abuse Active ? ? Depressive Disorder Active ? ? Insomnia Active ? ? Mitral Valve Regurgitation Active ? ? Heart Murmur Active ? ? Procedures Date Name Performed by ? 07/21/2020 XR, Chest, 2 View [facility] er (Imaging) [address] [place], [place] [id number] (Work Place) Results Lab Results Date Name Specimen Result Interpretation Description Value Range Status Address ? 07/24/2020 Urinalysis, URC Normal Urine unspecified ? Edmundo luke [place] Reflex Source [facility] (Lab): [address], [place] ? ? U[facility] Normal Color Ur yellow lt - Final [facility] w (Lab): [address], [place] ? ? URC ABNORMAL Clarity Ur SL cloudy clear Final [place] [facility] (Lab): [address], [place] ? ? URC Normal Glucose Ur negative mg/dL negat [facility] mg/dL (Lab): mg/dL [address], [place] ? ? URC Normal Ketones Ur negative mg/dL negat [facility] - Medical trace Center mg/dL (Lab): [address], [place] ? ? URC Normal Bilirubin negative negat Final [facility] [facility] (Lab): [address], [place] ? ? URC Normal Specific 1.020 1.005 Final [place] Ur -1.03 Medic l Center (Lab): [address], [place] ? ? URC Normal pH Ur 8.0 5.0-8 Final [place] .0 [facility] Center (Lab): [address], [place] ? ? URC Normal Blood Ur negative negat Final [facility] Center (Lab): [address], [place] ? ? URC Normal Protein Ur negative mg/dL negat [facility] Medical 0 Center mg/dL (Lab): [address], [place] ? ? URC Normal Urobilinog 0.2 E.U./dL 0.2-1 Final [place] en .0 Medical E.U./ Center dL (Lab): [address], [place] ? ? URC Normal Nitrate negative negat Final [facility] (Lab): [address], [place] ? ? URC Normal Leukocyte negative negat Final [facility] ada Esterase [facility] Center (Lab): [address], [place] 07/24/2020 Urinalysis, URC Normal Urine unspecified ? Fin al [place] Microscopic Source Medic al Center (Lab): [address], [place] ? ? URC Normal RBC Ur 0-2 [hpf] 0-2 Final [place] a /hpf Medical [hpf] Center (Lab): [address], [place] ? ? URC Normal WBC Ur 0-2 [hpf] 0-2 Final [place] a /hpf Medical [hpf] Center (Lab): [address], [place] ? ? URC Normal WBC Clumps none seen none Final [place] seen [facility] Center (Lab): [address], [place] ? ? URC Normal Bacteria few none Final [place] Ur seen [facility] Center (Lab): [address], [place] ? ? URC ABNORMAL Squamous few none- Final [place] Cells occas [facility] ional Center (Lab): [address], [place] ? ? URC ABNORMAL Mucus few none Final [place] [facility] (Lab): [address], [place] ? ? URC Normal Casts none seen none Final [place] seen [facility] (Lab): [address], [place] ? ? URC Normal Crystals none seen none Final [place] [facility] (Lab): [address], [place] 07/24/2020 HIV 1+2 Ab + P Normal HIV P24 not detected not Final [place] HIV1 P24 Ag, Antigen detec [facility] ical QL, Rapid, [facility] Immunoassay, (Lab ): Serum or [address], [place] ? ? P Normal HIV 1/2 not detected not Final [place] Antibody detec [facility] (Lab): [address], [place] 07/24/2020 CT + NG DNA, XXX Normal Chlamydia not detected not Final [place] PCR, Trachomatis detec Medic al Unspecified PCR [facility] r Specimen (Lab): [address], [place] ? ? XXX Normal Neisseria not detected not Final [place] Gonorrheae detec Medica l PCR [facility] (Lab): [address], [place] ? ? XXX Normal Source_chg no answer given ? Fin al [place] c [facility] (Lab): [address], [place] 07/24/2020 Hepatitis B SER Unknown Results see reference ? Final [place] Surface Ab, lab report M edical Quantitative Cent er , Serum (Lab): [address], [place] 07/24/2020 Serology, SER Unknown Results see reference ? Final [place] Syphilis lab report [facility] (Lab): [address], [place] 07/24/2020 HBsAg SER Unknown Results see reference ? Edmundo Alexander (Hepatitis B lab report Medical Surface Ag), Cent er Serum (Lab): [address], [place] 07/24/2020 Hepatitis C SER Unknown Abnormal ? ? ? Kathleen Ab, Serum Status [facility] Center (Lab): [address], [place] 07/21/2020 CBC W/ Auto WB High Wbc 13.1 10*3/uL 4.1-1 Fi nal [place] Diff 1.0 Medical 10*3/ Center uL (Lab): [address], [place] ? ? WB High Rbc 5.15 10*6/uL 3.85- Final [place] 5.05 Medical 10*6/ Center uL (Lab): [address], [place] ? ? WB Normal Hemoglobin 15.4 g/dL 11.7- Final [place] 15.5 Medical g/dL Center (Lab): [address], [place] ? ? WB High Hematocrit 47.1 % 35.0- Final [place] 46.0 Medical % Center (Lab): [address], [place] ? ? WB Normal Mcv 92 fL 82-99 Final [place] fL [facility] Center (Lab): [address], [place] ? ? WB Normal Mch 29.9 pg 26.0- Final [place] 34.0 Medical pg Center (Lab): [address], [place] ? ? WB Normal Mchc 32.7 g/dL 32.0- Final [place] 36.0 Medical g/dL Center (Lab): [address], [place] ? ? WB Normal RDW-CV 13.1 % 11.5- Final [place] 15.0 Medical % Center (Lab): [address], [place] ? ? WB High Platelets 501 10*3/uL 150-4 Final [place] 50 Medical 10*3/ Center uL (Lab): [address], [place] ? ? WB Normal Mpv 9.3 fL 6.5-1 Final [place] 1.0 Medical fL Center (Lab): [address], [place] ? ? WB High Neutrophil 79.5 % 45.0- Final [place] % 70.0 Medical % Center (Lab): [address], [place] ? ? WB Low Lymphocyte 14.5 % 20.0- Final [place] % 40.0 Medical % Center (Lab): [address], [place] ? ? WB Normal Monocyte % 5.1 % 3.0-1 Final [place] 0.0 % Medical Center (Lab): [address], [place] ? ? WB Low Eosinophil 0.5 % 1.0-5 Final [place] % .0 % Medical Center (Lab): [address], [place] ? ? WB Normal Basophil % 0.2 % <0.5 Final [place] % Medical Center (Lab): [address], [place] ? ? WB Normal Immature 0.2 % 0.0-4 Final [place] Granulocyte .0 % Medic al % Center (Lab): [address], [place] ? ? WB High Neutrophil 10.40 10*3/uL 2.00- Final [place] # 7.50 Medical 10*3/ Center uL (Lab): [address], [place] ? ? WB Normal Lymphocyte 1.90 10*3/uL 1.50- Final [place] # 4.00 Medical 10*3/ Center uL (Lab): [address], [place] ? ? WB Normal Monocyte # 0.67 10*3/uL 0.20- Final [place] 0.80 Medical 10*3/ Center uL (Lab): [address], [place] ? ? WB Normal Eosinophil 0.06 10*3/uL 0.04- Final [place] # 0.40 Medical 10*3/ Center uL (Lab): [address], [place] ? ? WB Normal Basophil # 0.03 10*3/uL 0.02- Final [place] 0.10 Medical 10*3/ Center uL (Lab): [address], [place] ? ? WB Normal Immature 0.03 10*3/uL 0.00- Final O [place] Granulocyte 4.30 Medic al # 10*3/ Center uL (Lab): [address], [place] ? ? WB Normal Manual not indicated ? Final [place] Diff Medical W/smear Center Review (Lab): [address], [place] 07/21/2020 Differential WB Normal Segmented 66 % 39-78 Fin al [place] , Manual, PMN % Medical Blood Center (Lab): [address], [place] ? ? WB Normal Lymphocyte 26 % 12-50 Final [place] % Medical Center (Lab): [address], [place] ? ? WB Normal Monocyte 7 % 1-12 Final [place] % Medical Center (Lab): [address], [place] ? ? WB Normal Eosinophil 0 % 0-7 % Final [place] [facility] Center (Lab): [address], [place] ? ? WB Normal Basophil 1 % 0-2 % Final [place] [facility] (Lab): [address], [place] ? ? WB Normal # Cells 100 ? Final [place] [facility] (Lab): [address], [place] ? ? WB Normal RBC normocytic/norm ? Final [place] Morphology ochromic [facility] anjali Center (Lab): [address], [place] ? ? WB Normal WBC reviewed, ? Final [place] Morphology normal Medica l Center (Lab): [address], [place] ? ? WB Normal Plt reviewed, ? Final [place] [facility] [address], [place] ? ? WB Normal Platelet thrombocytosis ? Final [place] [facility] (Lab): [address], [place] 07/21/2020 SARS CoV 2 NPSWAB Unknown Abnormal ? ? ? [place] RNA Status Medical (COVID-19), Renita MONTES, certified surgical tech/first assistant-PCR, (Lab ): Respiratory [address], [place] Past Encounters None recorded. Social History Tobacco Smoking Status Heavy Tobacco Smoker (1/2 pack per da y) Vaccine List None recorded. Plan of Care Reminders Provider Appointments None recorded. ? ? Lab None recorded. ? ? Referral None recorded. ? ? Procedures None recorded. ? ? Surgeries None recorded. ? ? Imaging None recorded. ? ? Vitals 07/24/2020 10:00AM Chronic Height Weight BMI Blood Pressure 5 ft 2.25 in 130 lbs 23.6 kg/m2 90/60 mm[Hg] 07/21/2020 01:00PM Adult Physical Height Weight BMI Blood Pressure 5 ft 2.25 in 125.8 lbs 22.8 kg/m2 98/60 mm[Hg]
--- OUTSIDE RECORDS SUMMARY | 2022-05-02 21:56 | XMS_ITS | Encounter Summary ---
:1990 Author Organization [facility] Address [address] [place] [address] Care Team Providers Name Role Phone Unavailable Primary Care Provider Unavailable Encounter Details Date Type Department Care Team Description 09/20/2010 Hospital Encounter HX [facility] Sourav Santana P.A.-C. [address] [place] [address] (Wo rk) Social History Tobacco Use Types Packs/Day Years Used Date Smoking Tobacco: Never Assessed Sex Assigned at Date Recorded Not on file documented as of this encounter Progress Notes Femi Santana P.A.-C., P.A. - 09/20/2010 12:00 AM CDT [id number] CHIEF COMPLAINT / REASON FOR VISIT Cough, congestion, sinuses. HISTORY OF PRESENT ILLNESS The patient is a 20-year-old accompanied by her significant other and presents for Same Day Clinic visit for a 1-week history of URI symptoms with some nasal congestion, cough, nonpurulent sinus drainage. She is approximately 6 weeks' gestation and has been fatigued and just exhausted. No fever. She receives her obstetrical care in [place]. CURRENT MEDICATIONS Metamucil as needed. vitamins daily. Suboxone daily. ALLERGIES Sulfa causes hives. VITAL SIGNS WEIGHT: 51.5 kg TEMP: 36.8 degreesC RESP RATE: 18 /min PULSE: 82 BLOOD PRESSURE: 92/64 PHYSICAL EXAM GENERAL: Well-appearing in no acute distress. SKIN: Free of rashes. EYES: Normal conjunctivae and lids. ENT: TMs are clear. Nares and turbinates with congestion, nonpurulent discharge. Pharynx is nonerythematous without exudate. Neck with shotty anterior cervical nodes bilaterally. HEART: Regular rate and rhythm without murmur, rub, or gallop. LUNGS: Clear throughout without wheezes, rubs, or crackles. Normal respiratory rate and effort. ABDOMEN: Soft, nondistended, normoactive bowel sounds. IMPRESSION / REPORT / PLAN 1) URI (upper respiratory infection). 2) Possible early sinusitis. PLAN: Reassurance was provided. At this point, I recommend watchful waiting, supportive measures and cares. She was given printed sheets on medications safe to use during . I also gave her a prescription for Zithromax Z-Ken. She will hold this for the next several days, but fill if symptoms persist or increase in fever, sinus pressure, pain or headache. Otherwise symptoms to warrant more urgent evaluation discussed. A patient handout on pharyngitis was given and reviewed. Follow up Darline Davidson Electronically Signed By: FEMI SANTANA On: 09/25/2010 02:02 Source: [facility] [id number] Document Id: [id number] documented in this encounter Miscellaneous Notes Miscellaneous - Femi Santana P.A.-C., P.A. - 09/20/2010 2:11 PM CDT Ambulatory Patient Summary [address] [address] Visit Information Name: ABIGAIL MARI Current Date: 09/20/2010 14:11:56 Primary Care Provider: ANYA EDGE HUC OB Your Medications Here is a list of your medications. It is important to take your medications as directed. Use a pillbox or chart to help remind you to take your medications. Please let your doctor or nurse know if you have problems taking your medications. Medication/Strength Dose Route Frequency Indications/Special Instructions/Comments azithromycin (Zithromax Z-Ken 250 mg oral tablet) 2 tablets on day 1, then 1 tablet on days 2-5 Oralas directed for 5 Days multivitamin, ( Multivitamins) Oral once a day psyllium (Metamucil) scoop Oral two times a day buprenorphine-naloxone (Suboxone 8 mg-2 mg sublingual tablet) 1.5 tab(s) Sublingual once a day Your Allergies & Intolerances Substance Reaction Symptoms Category Comments sulfa drugs hives Drug Your Problem List Problem Status Onset Comments Drug addiction NOS Active Constipation Active Urinary urgency. Active Your Recommendations We want to make [...] Chlamydia every 1 year Females Age 15-24 09/20/2010 Screening Pap Smear every 3 years Women 21-65 09/20/2010 Checks for signs of cancer of the cervix. Lipid Panel every 5 years Age 20-75 09/20/2010 Checks blood for good (HDL) and bad (LDL) cholesterol. Know your numbers, they are one indicator of your risk for heart attack and stroke. Vaccine: Tetanus every 10 years 11/19/2008 11/17/2018 Immunization to help prevent you from getting the serious disease Tetanus (Lockjaw). Your Upcoming Appointments Date Time Location Reason Provider No Appointments found Your Goals/Additional instructions: Source: [facility] POWERCHART Document Id: [id number] Electronically signed by Chikis [facility] Assembler Chassis [id number] at 11/21/2016 11:26 AM CDT Miscellaneous - Femi Santana P.A.-C., P.A. - 09/20/2010 2:11 PM CDT Ambulatory Depart Summary [facility] [address] [place] [place] [address] Visit Information Name: ABIGAIL MARI Current Date: 09/20/2010 14:11:55 Primary Care Provider: ANYA EDGE ABIGAIL MARI has been given the following list of medications: Your Medications It is important to take your medications as directed. Use a pill box or chart to help remind you to take your medications. Please let your doctor or nurse know if you have problems taking your medications. Medication/Strength Dose Route Frequency Indications/Special Instructions/Comments azithromycin (Zithromax Z-Ken 250 mg oral tablet) 2 tablets on day 1, then 1 tablet on days 2-5 Oralas directed for 5 Days multivitamin, ( Multivitamins) Oral once a day psyllium (Metamucil) scoop Oral two times a day buprenorphine-naloxone (Suboxone 8 mg-2 mg sublingual tablet) 1.5 tab(s) Sublingual once a day Additional Information: Yes - Current list of reconciled medications is provided and explained to the patient and/or family, guardian/caregiver. 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 Intake/History Entered On: 09/20/2010 13:51 CDT Performed On: 09/20/2010 13:49 CDT by LUIS MIGUEL BOLIVAR Intake Chief Complaint: Cold, low grade fever, bodyaches, S/T, very exhausted Onset of Symptoms: 1 week ago Ambulatory Intake Additional Information: Patient is 6 weeks Temperature Oral: 36.8C(Converted to: 98.2DegF) Peripheral Pulse Rate: 82/min Respiratory Rate: 18/min Systolic Blood Pressure: 92mmHg Diastolic Blood Pressure: 64mmHg NIBP Mean: 73mmHg BP Location: Right upper extremity Heart Rhythm: Regular Actual Weight: 51.500kg(Converted to: 113lb 9oz) Weight Source: Standing scale Dosing Weight Clinic: 51.50kg LUIS MIGUEL BOLIVAR - 09/20/2010 13:49 CDT Subjective Pain Symptoms: No LUIS MIGUEL BOLIVAR - 09/20/2010 13:49 CDT Dependent Habits Tobacco Use/Currently Using: Yes Exposure to Tobacco Smoke: Patient smokes LUIS MIGUEL BOLIVAR - 09/20/2010 13:49 CDT Tobacco Use Grid Type: Cigarettes Cigarette Use Packs/Day: 0.5 LUIS MIGUEL BOLIVAR - 09/20/2010 13:49 CDT Caffeine Use Grid Caffeine Use: Current Type: Soft drinks Frequency: Daily Amount: 3-4 cans Mt Dew LUIS MIGUEL BOLIVAR - 09/20/2010 13:49 CDT Allergies Allergies (Active) sulfa drugs Estimated Onset Date: Unspecified ; Reactions: hives ; Created By: NATHAN MONET; Reaction Status: Active ; Category: Drug ; Substance: sulfa drugs ; Type: Allergy ; Severity: Moderate ; Updated By: NATHAN MONET; Source: Patient ; Reviewed Date: 09/20/2010 13:44 CDT Source: [facility] [place] Document Id: [id number] documented in this encounter Plan of Treatment Not on filedocumented as of this encounter Visit Diagnoses Not on filedocumented in this encounter
--- OUTSIDE RECORDS SUMMARY | 2022-05-02 21:56 | XMS_ITS | Encounter Summary ---
:1990 Author Organization [facility] Address [address] [place] [address] Care Team Providers Name Role Phone Elsewhere, Pcp Primary Care Provider Unavailable Reason for Visit Reason Comments Back Pain BACK, NECK, SHOOTING PAIN DO WN LEGS Encounter Details Date Type Department Care Team Description 12/12/2021 Emergency [place] [facility] Back (Primary Dx); Department V., P.A.-C. Muscle Spasm Of Back [address] [place] [address] Social History Tobacco Use Types Packs/Day Years Used Date Smoking Tobacco: Unknown Alcohol Use Standard Drinks/Week Comments Yes 0 (1 standard drink = 0.6 oz pure alcoho l) Sex Assigned at Date Recorded Not on file documented as of this encounter Last Filed [...] - - Body Mass Index - - documented in this encounter Discharge Instructions Discharge InstructionsSun Allen V., P.A.-C. - 12/12/2021 10:42 PM CDT You may take Tylenol (Acetaminophen) 1000 mg every 6 hours as needed for pain or fever. Do not take more than 4000 mg in 24 hours. You may take Ibuprofen (Motrin) 400 - 600 mg every 6 hours as needed for pain or fever. Take with food. You may alternate these such that you are taking something every 3 hours as needed. Do not take either of these medications if you have been advised not to by another healthcare provider. 2. Use muscle relaxant for continued pain, do not drive or operate heavy machinery etc. After taking, can cause you to feel sleepy. 3. You can also try lidocaine patches or other topical gels/creams (over the counter from drug store) over the area you are having pain. 4. Trying heat and ice over the area of pain. 5. You may benefit from physical therapy if the pain continues. Try to continue activity as tolerated, avoid bedrest. 6. Please follow-up with your primary care provider for further evaluation and treatment. Please return to the emergency department for any new, severe, or worsening symptoms or concerns. AttachmentsThe following attachments cannot be sent through Care Everywhere. Acute Back Pain Adult (German)documented in this encounter Medications at Time of Discharge Medication Sig Dispensed Refills Start Date End Date cyclobenzaprine (FLEXERIL) Take 1 tablet (10 21 tablet 0 10 mg tablet mg total) by mouth 3 (three) times a day as needed for muscle spasms for up to 7 days. documented as of this encounter ED Notes Sun Allen V. P.A.-C. - 12/12/2021 8:39 PM CDT SUBJECTIVE CHIEF COMPLAINT/REASON FOR VISIT Back Pain (BACK, NECK, SHOOTING PAIN DOWN LEGS) HISTORY OF PRESENT ILLNESS Florecita MccarthyChioZach is a 31 y.o. female with history of drug dependence, presenting to ED for evaluation of back pain. She reports that for the last couple of days she has been experiencing lowerback pain. 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 Is not uncommon for her to get back pain, but she has never had pain this severe. She reports that she was trying to rest the last couple of days, but throughout the day she has been developing worsening back pain. She states that all the sudden she felt onset of severe pain in her lower back that shoots down both of her legs. She states that she was having trouble walking because of this. She states that the pain also shoots up into her neck, and she has pain in her neck as well. She had 2 episodes of vomiting last night and feels generally like her abdomen is bloated. She has not had any fevers, cough, upper respiratory symptoms. She denies any specific traumatic injuries to her back recently. She denies any fractures or surgeries to her back. She does use IV methamphetamine. Last use wasthis morning. She has not had any bowel or bladder incontinence, saddle anesthesia, fever, or major weight loss. REVIEW OF SYSTEMS Constitutional: Negative for fever. HENT: Negative for congestion, rhinorrhea and sore throat. Eyes: Negative for visual disturbance. Respiratory: Negative for cough and shortness of breath. Cardiovascular: Negative for chest pain and leg swelling. Gastrointestinal: Positive for nausea and vomiting. Negative for abdominal pain, constipation and diarrhea. Genitourinary: Negative for dysuria and hematuria. Musculoskeletal: Positive for back pain. Negative for neck pain and neck stiffness. Skin: Negative for rash. Neurological: Positive for weakness. Negative for headaches. Psychiatric/Behavioral: The patient is nervous/anxious. The following portions of the patient's history were reviewed and updated as appropriate: allergies,current medications, family history, medical history, social history, surgical history and problem list. OBJECTIVE VITAL SIGNS Initial Vitals Temperature Pulse Rate Heart Rate Resp Blood Pressure SpO2 12/12/21200612/12/211999 -- -- 12/12/21200912/12/211999 37.3 ??C (!) 117 (!) 67/48 100 % Pain Score 12/12/212005 10 - Worst possible pain PHYSICAL EXAMINATION Constitutional: Vitals reviewed. No distress. HENT: Head: Normocephalic and atraumatic. Mouth/Throat: Oropharynx is clear and moist. Mucous membranes are moist. No oropharyngeal exudate. Eyes: Conjunctivae are normal. Neck: Neck supple. Cardiovascular: Regular rhythm and normal heart sounds. Tachycardia present. Pulmonary/Chest: Effort normal and breath sounds normal. No respiratory distress. Abdominal: Soft. Bowel sounds are normal. There is generalized abdominal tenderness. There is no rebound and no guarding. Musculoskeletal: General: Normal range of motion. Cervical back: Normal range of motion and neck supple. Comments: Mild tenderness palpation of the cervical, thoracic, and lumbar mid spine. Seems to be worse over the sacral area. There is no overlying erythema, warmth, or signs of infection. Neurological: Alert and oriented to person, place, and time. She has normal sensation and normal strength. Normal speech. 5/5 strength and sensation in bilateral lower extremities. Normal rectal tone. 2+ patellar reflexes. Skin: Skin is warm and dry. Psychiatric: She has a normal mood and affect. INTERVENTIONS: Medications sodium chloride 0.9 % injection 2-10 mL (has no administration in time range) NaCl 0.9 % bolus 1,000 mL (0 mL intravenous Stopped 12/12/212209) ondansetron (PF) injection 4 mg (ZOFRAN) (4 mg intravenous Given 12/12/212022) ketorolac injection 30 mg (TORADOL) (30 mg intravenous Given 12/12/212022) iohexoL 300 mg iodine/mL solution 140 mL (OMNIPAQUE) (120 mL intravenous Given 12/12/212101) sodium chloride 0.9 % flush 100 mL (100 mL intravenous Given 12/12/212100) sodium chloride 0.9 % injection 10 mL (10 mL intravenous Given 12/12/212100) diazePAM injection 2.5 mg (VALIUM) (2.5 mg intravenous Given 12/12/212131) DIAGNOSTICS LABS: Labs Reviewed CBC WITH DIFFERENTIAL, B - Abnormal Result Value Hemoglobin 14.0 Hematocrit 42.3 Erythrocytes 4.73 MCV 89.4 RBC Distrib Width 12.9 Platelet Count 309 Leukocytes 5.7 Neutrophils 4.58 Lymphocytes 1.04 Monocytes 0.01 (*) Eosinophils 0.04 Basophils 0.01 URINALYSIS WITH MICROSCOPIC - Abnormal Source Urine, Urine, Midstream Clarity Clear Color Yellow Blood Negative Nitrite Positive (*) Leukocyte Esterase Negative Protein Negative Glucose Negative Ketones, QI(U) Negative Bilirubin Negative pH 6.0 Specific [place] <=1.005 Urobilinogen 0.2 White Blood Cells 4-10 Red Blood Cells None Seen Squamous Cells Occ-3 Bacteria Present (*) COMPREHENSIVE METABOLIC PANEL, S/P - Abnormal Potassium, P 3.2 (*) Sodium, P 137 Chloride, P 99 Bicarbonate, P 25 Anion Gap, P 13 BUN (Blood Urea Nitrogen), P 11 Creatinine, P 0.66 eGFR-Black/ >90 eGFR Non-Black/ >90 Calcium, Total, P 9.7 Glucose, P 116 Protein, Total, P 6.8 Albumin, P 4.0 Aspartate Aminotransferase (AST), P 21 Alkaline Phosphatase, P 104 Alanine Aminotransferase (ALT), P 33 Bilirubin, Total, P 0.3 IFLU A, B, SARS COV-2, PCR, RAPID,V Influenza A, PCR, Rapid, V Negative Influenza B, PCR, Rapid, V Negative SARS CoV-2, PCR, Rapid, V Undetected Infl A/B, SARS CoV-2, PCR, Source Swab, Nasopharynx C-REACTIVE PROTEIN (CRP), S/P C-Reactive Protein (CRP), P <3.0 RADIOLOGY: CT Thoracic Spine with IV Contrast Final Result No acute posttraumatic abnormality of the thoracic or lumbar spine. CT Lumbar Spine with IV Contrast Final Result No acute posttraumatic abnormality of the thoracic or lumbar spine. CT Cervical Spine with IV Contrast Final Result No acute posttraumatic abnormality of the cervical spine. ASSESSMENT / PLAN Florecita Vazquez is a 31 y.o. female presenting to emergency department for evaluation of back pain. Friend had to carry the patient in because she was in too much pain, and she appeared extremely uncomfortable. She is nontoxic appearing, slightly tachycardic on arrival, otherwise vital signsare stable. Presenting with severe back pain with shooting pains down both legs and up to the neck. Was doing some heavy lifting a few days prior. Does have history of IV drug use. Did have 2 episodes of vomiting yesterday. Differential diagnosis is broad including spinal abscess, mechanical low back pain, viral syndrome, among multiple other etiologies. Overall I am reassured by the fact that she ismoving both of her legs around in the bed, has 5/5 strength and sensation, 2+ patellar reflexes, normal rectal tone. No severe tenderness to palpation of her abdomen, low suspicion for emergent intraabdominal infection. We will check basic lab work, CRP, COVID, influenza, and CT scan with contrast of the cervical, thoracic, and lumbar spine to evaluate for spinal abscess. Patient reports history of hysterectomy, defer test. We will also give her 1 L of fluids, 30 mg of Toradol and 4 mg of Zofran. Stable hemoglobin. Normal white count and neutrophil count. Normal CRP. No severe electrolyte derangements, normal renal function and normal hepatic function. COVID and influenza negative. Urinalysis does have positive nitrites and bacteria, but no white cells, leukocyte esterase, and it is clear, shedoes not have any urinary symptoms, will not treat this as urinary tract infection at this point in time. CT scans reveal no acute posttraumatic abnormalities to the cervical, thoracic, or lumbar spine. On re-evaluation, she reports significant improvement overall in her pain, she still reports that her neck and shoulders feel very tight and her lower back is quite painful still. She was given 2.5 mg of Valium and had even more improvement in her pain. I do suspect most likely mechanical low back pain and muscle spasm causing her symptoms today. Especially since she was doing such strenuous activityand then was laying in bed for the last couple of days. She is able to ambulate to the bathroom without difficulty. She was given a prescription for Flexeril which she states she has used in the past and has worked well. We discussed supportive care treatments, recommended follow-up, return precautions, all questions were answered, she was agreeable with the plan, and was discharged home in stable condition. ED COURSE: Final Diagnoses: as of 12/12/21 2318 Pain Back Muscle Spasm Of Back ED DISCHARGE MEDICATIONS: ED Prescriptions Medication Sig Dispense Start Date End Date Auth. Provider cyclobenzaprine (FLEXERIL) 10 mg tablet Take 1 tablet (10 mg total) by mouth 3 (three) times a day as needed for muscle spasms for up to 7 days. 21 tablet 12/12/2021 12/19/2021 Sun Allen P.A.-CDennis DISPOSITION: Home or Self Care FOLLOW UP: Primary care Sun Allen V. PDennisA.-C. 12/12/21 2546 documented in this encounter Plan of Treatment Not on filedocumented as of this encounter Procedures Procedure Name Priority Date/Time Associated Comments Diagnosis URINALYSIS WITH STAT 12/12/2021 9:31 Results f or MICROSCOPIC PM CDT this procedure are in the results section. CT LUMBAR SPINE WITH RAD - Routine 12/12/2021 9:08 Res ults for IV CONTRAST (most inpatients PM CDT this proced ure and all are in the outpatients) results section. CT THORACIC SPINE RAD - Routine 12/12/2021 9:08 Result s for WITH IV CONTRAST (most inpatients PM CDT this pr ocedure and all are in the outpatients) results section. CT CERVICAL SPINE RAD - Routine 12/12/2021 9:06 Result s for WITH IV CONTRAST (most inpatients PM CDT this pr ocedure and all are in the outpatients) results section. IFLU A, B, SARS STAT 12/12/2021 8:18 Results f or COV-2, PCR, RAPID,V PM CDT this pro cedure are in the results section. CBC WITH STAT 12/12/2021 8:18 Results for DIFFERENTIAL, B PM CDT this procedu re are in the results section. C-REACTIVE PROTEIN STAT 12/12/2021 8:18 Result s for (CRP), S/P PM CDT this procedure are in the results section. COMPREHENSIVE STAT 12/12/2021 8:18 Results for METABOLIC PANEL, S/P PM CDT this pr ocedure are in the results section. documented in this encounter Results (ABNORMAL) Urinalysis with Microscopic: Urine, Midstream (12/12/2021 9:31 PM CDT) Analysis Performed At [facility] Time Signature Source Urine, Urine, 12/12/2021 [facility] Midstream 9:41 PM CDT Clarity Clear Clear 12/12/2021 [facility] 9:43 PM CDT Color Yellow 12/12/2021 [facility] 9:43 PM CDT Comment: ----REFERENCE VALUE---- Colorless Yellow Karena Blood Negative Negative 12/12/2021 9:43 PM CDT [facility] Nitrite Positive (A) Negative 12/12/2021 9:43 PM CDT [facility] Leukocyte Esterase Negative Negative 12/12/2021 9:43 PM CD T [facility] Protein Negative mg/dL 12/12/2021 9:43 PM CDT [facility] Comment: ----REFERENCE VALUE---- Negative Trace Glucose Negative Negative mg/dL 12/12/2021 9:43 PM CDT [facility] [place] Ketones, QI(U) Negative Negative mg/dL 12/12/2021 9:43 PM C DT [facility] Bilirubin Negative Negative 12/12/2021 9:43 PM CDT [facility] pH 6.0 5.0 - 8.0 12/12/2021 9:43 PM CDT [facility] Specific [place] <=1.005 1.001 - 1.035 12/12/2021 9:43 PM CDT [facility] Urobilinogen 0.2 0.2 - 1.0 mg/dL 12/12/2021 9:43 PM CD T [facility] White Blood Cells 4-10 /hpf 12/12/2021 9:52 PM CDT [facility] Comment: ----REFERENCE VALUE---- Males: 0-3 Females: 0-10 Unknown: 0-10 Red Blood Cells None Seen 0 - 2 /hpf 12/12/2021 9:52 PM CDT [facility] Squamous Cells Occ-3 /hpf 12/12/2021 9:52 PM CDT [facility] [place] Bacteria Present (A) None Seen 12/12/2021 9:52 PM CDT [facility] Specimen Anatomical Collection Method Collection Time Receive d Time (Source) Location / / Volume Laterality Urine (Urine, 12/12/2021 9:31 PM 12/13/19 9:41 Midstream) CDT PM CDT Sun Allen P.A.-C. LAB URINE ORDERABLES Performing Organization Address City/State/ZIP Code Phon e Number [facility]- [address] [place] [address] [address] [place] [address] Lumbar Spine with IV Contrast (12/12/2021 9:08 PM CDT) Anatomical Region Laterality Modality Lumbar Spine, Neuroradiology RST LOS, Neuroradiology N/A Computed Tomography ARZ LOS, Neuroradiology FLA LOS Specimen (Source) Anatomical Collection Method Collection Time Re ceived Time Location / / Volume Laterality 12/12/2021 9:23 PM CDT Impressions 12/12/2021 9:25 PM CDT No acute posttraumatic abnormality of the thoracic or lumbar spine. Narrative 12/12/2021 9:25 PM CDT EXAM: CT THORACIC SPINE WITH IV CONTRAST, CT LUMBAR SPINE WITH IV CONTRAST COMPARISON: None FINDINGS: Thoracic spine: Vertebral body heights maintained withou t evidence of vertebral compression fracture. Posterior elements of the spine are intact. Sagittal spinal alignment is anatomic. N o significant degenerative changes. Lumbar spine: Normal lumbar spine segmentation. Verteb ral body heights maintained without evidence of vertebral compression fracture. Posterior elements of the spine are intact. Sagittal spinal alignment is anatomic. N o significant degenerative changes. Prevertebral soft tissues demonstrate no acute abnormalities. No acute abnormality of the superficial soft tissues. Procedure Note Tyler Freitas M.D. - 12/12/2021Formatt ing of this note might be different from the original. EXAM: CT THORACIC SPINE WITH IV CONTRAST , CT LUMBAR SPINE WITH IV CONTRAST COMPARISON: None FINDINGS: Thoracic spine: Vertebral body heights maintained withou t evidence of vertebral compression fracture. Posterior elements of the spine are intact. Sagittal spinal alignment is anatomic. N o significant degenerative changes. Lumbar spine: Normal lumbar spine segmentation. Verteb ral body heights maintained without evidence of vertebral compression fracture. Posterior elements of the spine are intact. Sagittal spinal alignment is anatomic. N o significant degenerative changes. Prevertebral soft tissues demonstrate no acute abnormalities. No acute abnormality of the superficial soft tissues. IMPRESSION: No acute posttraumatic abnormality of th e thoracic or lumbar spine. Sun [place] CT PROCEDURES CT Thoracic Spine with IV Contrast (12/12/2021 9:08 PM CDT) Anatomical Region Laterality Modality Thoracic Spine, Neuroradiology RST LOS, Neuroradiology N/A Computed Tomography ARZ [facility] Neuroradiology FLA [facility] Specimen (Source) Anatomical Collection Method Collection Time Re ceived Time Location / / Volume Laterality 12/12/2021 9:23 PM CDT Impressions 12/12/2021 9:25 PM CDT No acute posttraumatic abnormality of the thoracic or lumbar spine. Narrative 12/12/2021 9:25 PM CDT EXAM: CT THORACIC SPINE WITH IV CONTRAST, CT LUMBAR SPINE WITH IV CONTRAST COMPARISON: None FINDINGS: Thoracic spine: Vertebral body heights maintained withou t evidence of vertebral compression fracture. Posterior elements of the spine are intact. Sagittal spinal alignment is anatomic. N o significant degenerative changes. Lumbar spine: Normal lumbar spine segmentation. Verteb ral body heights maintained without evidence of vertebral compression fracture. Posterior elements of the spine are intact. Sagittal spinal alignment is anatomic. N o significant degenerative changes. Prevertebral soft tissues demonstrate no acute abnormalities. No acute abnormality of the superficial soft tissues. Procedure Note Tyler Freitas M.D. - 12/12/2021Formatt ing of this note might be different from the original. EXAM: CT THORACIC SPINE WITH IV CONTRAST , CT LUMBAR SPINE WITH IV CONTRAST COMPARISON: None FINDINGS: Thoracic spine: Vertebral body heights maintained withou t evidence of vertebral compression fracture. Posterior elements of the spine are intact. Sagittal spinal alignment is anatomic. N o significant degenerative changes. Lumbar spine: Normal lumbar spine segmentation. Verteb ral body heights maintained without evidence of vertebral compression fracture. Posterior elements of the spine are intact. Sagittal spinal alignment is anatomic. N o significant degenerative changes. Prevertebral soft tissues demonstrate no acute abnormalities. No acute abnormality of the superficial soft tissues. IMPRESSION: No acute posttraumatic abnormality of th e thoracic or lumbar spine. Sun Allen P.A.-C. IMMartha CT PROCEDURES CT Cervical Spine with IV Contrast (12/12/2021 9:06 PM CDT) Anatomical Region Laterality Modality Cervical Spine, Neuroradiology RST LOS, Neuroradiology N/A Computed Tomography ARZ LOS, Neuroradiology FLA [facility] Specimen (Source) Anatomical Collection Method Collection Time Re ceived Time Location / / Volume Laterality 12/12/2021 9:02 PM CDT Impressions 12/12/2021 9:23 PM CDT No acute posttraumatic abnormality of the cervical spine. Narrative 12/12/2021 9:23 PM CDT EXAM: CT CERVICAL SPINE WITH IV CONTRAST COMPARISON: None FINDINGS: Vertebral body heights maintained withou t evidence of vertebral compression fracture. Posterior elements of the spine are intact. Sagittal spinal alignment is anatomic. N o significant degenerative changes. Prevertebral soft tissues are normal. Jo Ann ng apices are clear. No acute abnormality of the superficial soft tissues. Procedure Note Tyler Freitas M.D. - 12/12/2021Formatt ing of this note might be different from the original. EXAM: CT CERVICAL SPINE WITH IV CONTRAST COMPARISON: None FINDINGS: Vertebral body heights maintained withou t evidence of vertebral compression fracture. Posterior elements of the spine are intact. Sagittal spinal alignment is anatomic. N o significant degenerative changes. Prevertebral soft tissues are normal. Jo Ann ng apices are clear. No acute abnormality of the superficial soft tissues. IMPRESSION: No acute posttraumatic abnormality of th e cervical spine. Sun Allen P.A.-C. IMG CT PROCEDURES Influenza A/B, SARS CoV-2, PCR, Rapid, Varies Symptomatic (12/12/2021 8:18 PM CDT) [facility] Method Time Signature Influenza A, Negative Negative 12/12/2021 [facility] PCR, Rapid, V 8:41 PM CDT Influenza B, Negative Negative 12/12/2021 [facility] PCR, Rapid, V 8:41 PM CDT SARS CoV-2, Undetected Undetected 12/12/2021 [facility] PCR, Rapid, V 8:41 PM CDT Comment: ----ADDITIONAL INFORMATION---- This RT-PCR test was performed using the Juany SARS-CoV-2 and Influenza A/B Reagent assay from [employer], which has received Emergency Use Authori zation(EUA) by the U.S. Food and Drug Administration . Fact sheets for this Emergency Use Autho rization (EUA) assay can be found at the following link s: For Healthcare Providers: https://www.fda.gov/media/122207/downloa d For Patients: https://www.fda.gov/media/226640/downloa d Infl A/B, SARS CoV-2, PCR, Source Swab, Nasopharynx 12/12/2021 8:21 PM CDT [facility] Specimen Anatomical Collection Method Collection Time Receive d Time (Source) Location / / Volume Laterality Varies 12/12/2021 8:18 PM 8:21 (Nasopharynx) CDT PM CDT Sun Allen P.A.-C. LAB MICROBIOLOGY - GENE RAL ORDERABLES Performing Organization Address City/State/ZIP Code Phon e Number [facility]- [address] [place] [phone] [place] [address] [address] (ABNORMAL) Comprehensive Metabolic Panel (12/12/2021 8:18 PM CDT) athologist Signature Potassium, P 3.2 (L) 3.6 - 5.2 12/12/2021 [facility] mmol/L 8:41 PM CDT Sodium, P 137 135 - 145 12/12/2021 [facility] mmol/L 8:41 PM CDT Chloride, P 99 98 - 107 12/12/2021 [facility] mmol/L 8:41 PM CDT Bicarbonate, P 25 22 - 29 12/12/2021 [facility] mmol/L 8:41 PM CDT Anion Gap, P 13 7 - 15 12/12/2021 [facility] 8:41 PM CDT BUN (Blood Urea 11 6 - 21 12/12/2021 [facility] Nitrogen), P mg/dL 8:41 PM CDT Creatinine 0.66 0.59 - 12/12/2021 [facility] 1.04 mg/dL 8:41 PM CDT eGFR-Black/Afri >90 >=60 12/12/2021 [facility] can Cypriot mL/min/BSA 8:41 PM CDT Comment: ----ADDITIONAL INFORMATION---- Estimated GFR calculated using the 2009 CKD_EPI creatinine equation. eGFR Non-Black/ >90 >=60 mL/min/BSA 12/12/2021 8:41 PM CDT [facility] Comment: ----ADDITIONAL INFORMATION---- Estimated GFR calculated using the 2009 CKD_EPI creatinine equation. Calcium, Total, P 9.7 8.6 - 10.0 mg/dL 12/12/2021 8:41 PM CDT [facility] Glucose, P 116 70 - 140 mg/dL 12/12/2021 8:41 PM CDT [facility] Protein, Total, P 6.8 6.3 - 7.9 g/dL 12/12/2021 8:41 P M CDT [facility] Albumin, P 4.0 3.5 - 5.0 g/dL 12/12/2021 8:41 PM CDT [facility] Aspartate Aminotransferase 21 8 - 43 U/L 12/12/2021 8 :41 PM CDT [facility] (AST), P Alkaline Phosphatase, P 104 35 - 104 U/L 12/12/2021 8: 41 PM CDT [facility] Alanine Aminotransferase (ALT), 33 7 - 45 U/L 022 8:41 PM CDT [facility] P Bilirubin, Total, P 0.3 <=1.2 mg/dL 12/12/2021 8:41 PM CDT CA Specimen Anatomical Collection Method Collection Time Receive d Time (Source) Location / / Volume Laterality Blood (Blood, 12/12/2021 8:18 PM 12/13/19 8:22 Venous) CDT PM CDT Sun Allen P.A.-C. LAB BLOOD ADD-ON Performing Organization Address [facility] Phon e Number [address] [phone] [facility] [place] [place] [address] System [address] CRP (C-Reactive Protein) (12/12/2021 8:18 PM CDT) P athologist Signature C-Reactive <3.0 <=8.0 mg/L 12/12/2021 [facility] Protein (CRP), 8:41 PM CDT P Specimen Anatomical Collection Method Collection Time Receive d Time (Source) Location / / Volume Laterality Blood (Blood, 12/12/2021 8:18 PM 12/13/19 22 8:22 Venous) CDT PM CDT Sun BatistaC. LAB BLOOD ADD-ON Performing Organization Address [facility] Phon e Number [phone] [facility] [place] [address] System in [address] (ABNORMAL) CBC with Differential, Blood (12/12/2021 8:18 PM CDT) Patholo gist Method Time Signature Hemoglobin 14.0 11.6 - 12/12/2021 [facility] 15.0 g/dL 8:27 PM CDT Hematocrit 42.3 35.5 - 12/12/2021 [facility] 44.9 % 8:27 PM CDT Erythrocytes 4.73 3.92 - 12/12/2021 [facility] 5.13 8:27 PM CDT x10(12)/L MCV 89.4 78.2 - 12/12/2021 [facility] 97.9 fL 8:27 PM CDT RBC Distrib Width 12.9 12.2 - 12/12/2021 [facility] 16.1 % 8:27 PM CDT Platelet Count 309 157 - 371 12/12/2021 [facility] x10(9)/L 8:27 PM CDT Leukocytes 5.7 3.4 - 9.6 12/12/2021 [facility] x10(9)/L 8:27 PM CDT Neutrophils 4.58 1.56 - 12/12/2021 [facility] 6.45 8:27 PM CDT x10(9)/L Lymphocytes 1.04 0.95 - 12/12/2021 [facility] 3.07 8:27 PM CDT x10(9)/L Monocytes 0.01 (L) 0.26 - 12/12/2021 [facility] 0.81 8:27 PM CDT x10(9)/L Eosinophils 0.04 0.03 - 12/12/2021 [facility] 0.48 8:27 PM CDT x10(9)/L Basophils 0.01 0.01 - 12/12/2021 [facility] 0.08 8:27 PM CDT x10(9)/L Specimen Anatomical Collection Method Collection Time Receive d Time (Source) Location / / Volume Laterality Blood (Blood, 12/12/2021 8:18 PM 12/13/19 8:22 Venous) CDT PM CDT Sun Allen P.A.-C. LAB BLOOD ADD-ON Performing Organization Address City/State/ZIP Code Phon e Number [facility]- [address] [place] [address] [phone] [place] [address] System in [address] documented in this encounter Visit Diagnoses Diagnosis Pain Back - Primary Muscle Spasm Of Back documented in this encounter Administered Medications Inactive Administered Medications - up to 3 most recent administrations Medication Order MAR Action Action Date Dose Rate Site diazePAM injection 2.5 mg (VALIUM) Given 12/12/2021 9:32 PM CDT 2.5 mg 2.5 mg, intravenous, Once, On 12/12/21 at 2122, For 1 dose iohexoL 300 mg iodine/mL solution Given 12/12/2021 9:02 PM CDT 1 20 mL Right Hand 140 mL (OMNIPAQUE) 140 mL, intravenous, Once in imaging, contrast, Starting on 12/12/21 at 2101, For 1 dose, Imaging Protocol Orders ketorolac injection 30 mg (TORADOL) Given 12/12/2021 8:23 PM CDT 30 mg 30 mg, intravenous, Once, On 12/12/21 at 2014, For 1 dose, Adult IV push rate: Over 15 seconds. Peds IV push rate: Over 1 minute. 60 mg dose only for IM, not recommended for IV. NaCl 0.9 % bolus 1,000 mL Restarted 12/12/2021 9:34 PM CDT 1000 mL/hr 1,000 mL, intravenous, at 1,000 mL/hr, Administer over 1 Hours, Once, On 12/12/21 at 2014, For 1 dose New Bag 12/12/2021 8:23 PM CDT 1,000 mL 1000 mL/hr ondansetron (PF) injection 4 mg (ZOFRAN) Given 12/12/2021 8:23 PM CDT 4 mg 4 mg, intravenous, Once, On 12/12/21 at 2014, For 1 dose sodium chloride 0.9 % flush Given 12/12/2021 9:01 PM CDT 100 mL Right Antecubital 100 mL 100 mL, intravenous, Once in imaging, line care, Starting on 12/12/21 at 2101, For 1 dose, Imaging Protocol Orders sodium chloride 0.9 % injection 10 mL Given 12/12/2021 9:01 PM CDT 10 mL Right Hand 10 mL, intravenous, Once in imaging, line care, Starting on 12/12/21 at 2101, For 1 dose, Imaging Protocol Orders sodium chloride 0.9 % injection 2-10 mL 2-10 mL, intravenous, As needed, line care, Starting o n 12/12/21 at 2009 documented in this encounter Active and Recently Administered Medications Times are shown in CDT. Scheduled Medication Order 12/10/2021 12/11/2021 12/12/2021 diazePAM injection 2.5 mg (VALIUM) (COMPLETED) 2131 (Given - Provider: Yarelis Lezama R.N.) 2.5 mg, intravenous, Once, On 12/12/21 at 2121, For 1 dose ketorolac injection 30 mg (TORADOL) (COMPLETED) 2022 (Given - Provider: Yarelis K Lezama, R.N.) 30 mg, intravenous, Once, On 12/12/21 at 2014, For 1 dose, Adult IV push rate: Over 15 seconds. Peds IV push rate: Over 1 minute. 60 mg dose only for IM, not recommended for IV. NaCl 0.9 % bolus 1,000 mL (COMPLETED) 2022 (New Bag - Provider: Yarelis Lezama R.N.)2046 (Stopped - Provider: Yarelis Lezama R.N. - Comment: pt WENT TO IMAGING)2133 (Restarted - Provider: Yarelis Lezama R.N. - Comment: PT BACK)2209 (Stopped - Provider: Yarelis Lezama R.N.) 1,000 mL, intravenous, at 1,000 mL/hr, A dminister over 1 Hours, Once, On 12/12/21 at 2014, For 1 dose ondansetron (PF) injection 4 mg (ZOFRAN) (COMPLETED) 2022 (Given - Provider: Yarelis Lezama R.N.) 4 mg, intravenous, Once, On 12/12/21 at 2014, For 1 dose PRN Medication Order 12/10/2021 12/11/2021 12/12/2021 iohexoL 300 mg iodine/mL solution 140 mL (OMNIPAQUE) (COMPLETED) 2101 (Given - Provider: Leticia Arriola(R) - Comment: [id number]) 140 mL, intravenous, Once in imaging, co ntrast, Starting on 12/12/21 at 2100, For 1 dose, Imaging Protocol Orders sodium chloride 0.9 % flush 100 mL (COMPLETED) 2100 (Given - Provider: Leticia Arriola(R)) 100 mL, intravenous, Once in imaging, [facility] care, Starting on 12/12/21 at 2100, For 1 dose, Imaging Protocol Orders sodium chloride 0.9 % injection 10 mL (COMPLETED) 2100 (Given - Provider: Leticia Arriola(R)) 10 mL, intravenous, Once in imaging, rajan e care, Starting on 12/12/21 at 2100, For 1 dose, Imaging Protocol Orders sodium chloride 0.9 % injection 2-10 mL(Linked Group 1) 2-10 mL, intravenous, As needed, line care, Starting on Sat 12/12 at 2009 Linked Groups Order Group 1: Place peripheral IV: No upper extremity site restrictions (CANCELED) Upper extremity site restriction: No upp er extremity site restrictions
Quantity of PIVs requested: One
STAT, Once, On 12/12/21 at 2010, For 1 occurrence And sodium chloride 0.9 % injection 2-10 mLJump to med 2-10 mL, intravenous, As needed, line ca re, Starting on 12/12/21 at 2009 documented in this encounter Additional Health Concerns Infection Onset Date Last Indicated Resolved Time COVID19 Pending 12/12/2021 12/12/2021 12/12/2021 8:41 PM CDT documented as of this encounter Care Teams General Milling Superintendent Relationship Specialty Start Date End Date Elsewhere, Pcp PCP - General 08/22/20 documented as of this encounter
--- OUTSIDE RECORDS SUMMARY | 2022-05-02 21:56 | XMS_ITS | Encounter Summary ---
:1990 Author Organization [facility] Address [address] [place] [address] Care Team Providers Name Role Phone Lisa Olmedo MD Primary Care Provider Debbie Ivan Unavailable Encounter Details Date Type Department Care Team Description 04/13/2012 Office Visit-[facility] Tuan Lopez MD [address] [facility] [address] [place] [address] (Wo rk) Social History Tobacco Use Types Packs/Day Years Used Date Smoking Tobacco: Never Assessed Sex Assigned at Date Recorded Not on file documented as of this encounter Progress Notes Lester Lopez MD - 04/13/2012 11:30 AM CDT Retail Loss Prevention Investigator: Lester Lopez Status: Final - Signature Encounter: 2012-04-13 11:30:00.000 Type: Neurology Letter [facility] [address] [address] April 13, 2012 Lisa Olmedo MD [facility] [address] [place] [address] RE: Florecita Serrato : 1990 JULIO: 04/13/2012 Dear Lisa: Thank you for the referral of Florecita Serrano for chief complaint of headache. As you know, she is a 21-year-old, right-handed woman with problems of headache. She reports that she has had migraine headaches since she was a child. More recently, she has developed a daily type headache. This has been going on the last three or four months. She delivered her second child 11 months ago. That does not seem to be a factor. She cannot recall any illness or injury that occurred 3-4 months ago to precipitate the headache. The headaches just seem to begin. They are frequently there on awaking in the morning. They will simon as the day goes on, but typically she will get the headache back. The headache is in the posterior cervical region and in the shoulders and in her occiput. She describes it as a pressure and an aching. It is not a zapping or a pounding. She does get blurred vision with the headache. She has phonophobia but no photophobia. She does not get nausea with this headache. These headaches are different from her migraine headaches. She gets a migraine every couple of months or so. Those are typically disabling and debilitating. She has photophobia, phonophobia, nausea, and vomiting with them. She will go to the emergency room for treatment. Imitrex sometimes is helpful for the migraine. She has been using Imitrex to treat her tension headaches to good effect. However, there are limitations on how much she can use. She has tried Tylenol and ibuprofen without benefit, but Flexeril with Tylenol or ibuprofen is often helpful. She has been on nortriptyline and amitriptyline in the pastfor migraine without benefit. Her neurologic review of systems is otherwise unremarkable. Her past medical history is significant for opiate addiction. She is on Subutex for the last two mendel half years. She does note that a side effect of Subutex is headache. She also is on oxybutynin. She smokes. Social history is that she is unmarried. She has two children. She is currently on leave from her work. Family history is positive for migraine in her parents. On exam, the patient is cooperative and in no distress. Blood pressure 125/75. There are no carotid bruits. Auscultation of the heart shows S1, S2 without murmur, rub, or gallop. Chest is clear to auscultation. On neurologic exam, the patient is alert, oriented, and lucid. Cranial nerve testing shows full visual mallory to confrontation. Funduscopic exam shows sharp discs with venous pulsations. Visual acuity is 20/20 bilaterally. Eye movements are complete and conjugate without nystagmus. Pupils react to light. Facies are symmetric. Tongue protrudes in the midline. Motor evaluation shows no pronator drift, normal finger tapping, [id number], and [id number]. She has good strength in the arms, hands, and legs. Muscle stretch reflexes are reduced at the right biceps and brachioradialis compared to the left. Triceps reflexes are normal and symmetric. Knee and ankle reflexes are low amplitude. Toes are downgoing. Sensory exam shows preserved vibration and temperature. Romberg sign is absent. The patient can walk on her heels, toes, and tandem. Assessment: 1. Chronic daily headache. 2. History of migraine. Discussion: This patient is seen for evaluation of chronic daily headache for the last 3-4 months. The headache typically is present on awaking in the morning and then abates, and then will recur laterin the day. Her exam on this point is normal. A differential diagnosis includes intracranial processcausing the headache. I am going to obtain an MRI scan of the brain to make sure there is no structural lesion. For treatment, I am starting her on propranolol, building up to 40 mg three times a day. Side effects were reviewed. She has no plans on getting again. If she tolerates the propranolol, this could be given as a long-acting. I will see her in follow-up in a month. Sincerely, Lester Lopez MD Department of Neurology [facility] [id number] Electronically signed by:Lester Lopez M.D. Apr 14 2012 7:23AM COOLER CONVEYOR LOADER Author documented in this encounter Plan of Treatment Not on filedocumented as of this encounter Visit Diagnoses Not on filedocumented in this encounter Care Teams Wallcovering Texturer Relationship Specialty Start Date End Date Lisa Olmedo MD PCP - General 02/02/13 [facility] [address] [place] [address] Debbie Ivan LSW Bulldozer/Loader/Compactor/Scraper Clinic 11/29/17 12/26/17 documented as of this encounter
--- OUTSIDE RECORDS SUMMARY | 2022-05-02 21:56 | XMS_ITS | Encounter Summary ---
:1990 Author Organization [facility] Address [address] [place] [address] Care Team Providers Name Role Phone Unavailable Primary Care Provider Unavailable Encounter Details Date Type Department Care Team Description 03/19/2010 Hospital Encounter HX [facility] Shantal Edge, HOME, C.N.P. [address] [place] [address] (Wo rk) Social History Tobacco Use Types Packs/Day Years Used Date Smoking Tobacco: Never Assessed Sex Assigned at Date Recorded Not on file documented as of this encounter Progress Notes Shantal Edge APRN, R.N. - 03/19/2010 12:00 AM CDT [id number] CHIEF COMPLAINT/REASON FOR VISIT Nausea and vomiting. HISTORY OF PRESENT ILLNESS Florecita is a 19-year-old young woman, residing here in [place] for the last 3 to 4 days in a [facility]. She has recently returned from chemical dependency treatment. Her primary care is in [place] with Dr. Lisa Olmedo. She noted nausea approximately 1 month ago, while she was in treatment. She has had a history of constipation, had been using her Metamucil twice daily, Senna, and intermittent Fleet enemas. This nausea now has persisted and has been so difficult in the last few days that she has not been able to eat or drink anything but water. She has no other food available to her and she has not been drinking any juices or Gatorade for electrolytes. She has taken TMs and Reglan and the other medications as noted. Her history is quite sketchy. She is here with a caregiver from the [facility]; this young woman states that they should be able to get her medications and Gatorade, and Florecita states that she should be able to reach her mother, who lives in [place], to get her other food. She denies any eating disorder or other chronic health issues. CURRENT MEDICATIONS Reviewed and no changes per EMR. ALLERGIES Reviewed and no changes per EMR. VITAL SIGNS Reviewed per EMR. PHYSICAL EXAM GENERAL: An alert, interactive, very petite young woman in no acute distress. SKIN: Warm and dry. HEENT: Head is normocephalic. Eyes PERRLA. Lips are somewhat dry. LUNGS: Clear. HEART: Rate is regular, rhythm regular, S1 and S2 heard without murmur. ABDOMEN: Soft and non-distended with no hepatosplenomegaly or masses. Absolutely no tenderness to palpation. Bowel sounds are quiet. IMPRESSION/REPORT/PLAN IMAGING STUDIES: X-ray does show abdomen full of stool. Please see note or radiologist's reading. DIAGNOSTIC: CBC is normal. 1) Constipation. 2) Chemical dependency. 3) Probably disordered eating. PLAN: I did bring the staff member into the room to discuss the plan. Florecita needs food, electrolytes, and several Fleet enemas to get her started. Metamucil routinely and I discouraged any laxatives by mouth right now. She further asked me about what she should be eating or what would constitute nutritional meals. We did have a discussion about basic nutritional care of herself and she is encouraged to communicate her further needs; she agrees. Shantal Edge A.P.R.N., klj F.N.P., C.D.E. Electronically Signed By:SHANTAL EDGE On 03/24/2010 11:36 AM Source: [facility] MHSDOLBEYNONRADSYS Document Id: [id number] documented in this encounter Miscellaneous Notes Miscellaneous - Conversion, Historical Provider Ser - 03/19/2010 1:50 PM CDT Adult Nib Adjuster Intake/History Adult Nib Adjuster Intake/History Entered On: 03/19/2010 13:54 CDT Performed On: 03/19/2010 13:50 CDT by MARLINE CONTRERAS CARDIAC CARE NURSE Intake Chief Complaint: throwing up for 4-5 days now. can't hold down any food or liquid. getting worse. feels dehydrated. alot of dry heaving. having cold sweats. has been nauseated for about 2 weeks. vomitting started 4 days ago Temperature Oral: 37.0C(Converted to: 98.6DegF) Peripheral Pulse Rate: 90/min Respiratory Rate: 16/min Systolic Blood Pressure: 98mmHg Diastolic Blood Pressure: 60mmHg NIBP Mean: 73mmHg BP Location: Right upper extremity Actual Weight: 47.900kg(Converted to: 105lb 10oz) Dosing Weight Clinic: 47.90kg MARLINE CONTRERAS LPN - 03/19/2010 13:50 CDT Subjective Pain Symptoms: No MARLINE CONTRERAS LPN - 03/19/2010 13:50 CDT Dependent Habits Tobacco Use/Currently Using: Yes MARLINE CONTRERAS LPN - 03/19/2010 13:50 CDT Tobacco Use Grid Type: Cigarettes Cigarette Use Packs/Day: 0.5 MARLINE CONTRERAS LPN - 03/19/2010 13:50 CDT [facility]ies [facility] Document Id: [id number] CDT!20 documented in this encounter Plan of Treatment Not on filedocumented as of this encounter Procedures Procedure Name Priority Date/Time Associated Diagnosis Comme nts DX ABDOMEN SUPINE Routine 03/19/2010 3:44 PM Resu lts for this WITH UPRIGHT OR CDT procedure ar e in DECUBITUS 2 VIEWS the result s section. documented in this encounter Results DX Abdomen Supine with Upright or Decubitus 2 Views (03/19/2010 3:44 PM CDT) Anatomical Region Laterality Modality Abdomen Right Radiographic Imaging Specimen (Source) Anatomical Collection Method Collection Time Re ceived Time Location / / Volume Laterality 03/19/2010 3:44 PM CDT Addenda Addendum by Provider, Etienne Gross 03/19/2010 3:44 PM CDT RAD^^^OW XR Abdomen 2 Views 03/19/2010 15:44:55 Narrative 03/19/2010 2:57 PM CDT Abdomen. INDICATION Nausea vomiting. FINDINGS Moderate amount of stool within the rect al vault, descending and transverse colon. ??Normal bowel gas pattern. ??No free intraperitoneal air. ??Imaging findings would be compatible with possib le constipation; clinical correlation is recommended. ??Lumbar curve convex le ft. Rg Franco, ?? jwjayleen ?D: 0 03/19/2010T: 03/19/2010 02:57 pm M.D. ? THIS IS AN ELEC TRONICALLY VERIFIED REPORT 03/19/2010 2:57 PM: ??Juan Duffy Procedure Note Rg Franco M.D. / Provider, Kelsie he M.D. - 11/11/2016 Abdomen. INDICATION Nausea vomiting. FINDINGS Moderate amount of stool within the rect al vault, descending and transverse colon. Normal bowel gas pattern. No free intraperitoneal air. Imaging findings would be compatible with possib le constipation; clinical correlation is recommended. Lumbar curve convex left . melissa Duffy T: 02:57 pm Etienne THIS IS AN ELECTRONICALLY VERIFIED REPORT 03/19/2010 2:57 PM: Ness Duffy Historical Provider IMG DIAGNOSTIC IMAGING PROCE DURES documented in this encounter Visit Diagnoses Not on filedocumented in this encounter
--- OUTSIDE RECORDS SUMMARY | 2022-05-02 21:56 | XMS_ITS | Encounter Summary ---
:1990 Author Organization [facility] Address [address] [place] [address] Care Team Providers Name Role Phone Unavailable Primary Care Provider Unavailable Encounter Details Date Type Department Care Team Description 04/08/2010 Hospital Encounter [facility] Kapil Sena PAndres. [address] [place] [address] (Wo rk) Social History Tobacco Use Types Packs/Day Years Used Date Smoking Tobacco: Never Assessed Sex Assigned at Date Recorded Not on file documented as of this encounter Progress Notes Kapil Sena, P.Eusebio. - 04/08/2010 12:00 AM CDT [id number] CHIEF COMPLAINT / REASON FOR VISIT Migraine x4 days. HISTORY OF PRESENT ILLNESS This 19-year-old female presents to Urgent Care with the above complaint. Denies proceeding head injury, neurological symptoms. Denies any changes to the pain that are atypical for her chronic problems. Patient states that she thinks this is more of a tension type headache as it is across the top of her head, down the left temporal region into the left side of the neck where it feels tight and achy even into her shoulder. Denies numbness, tingling, weakness, or paralysis. Patient took Imitrex last night without change in symptoms. Patient usually sees Dr. Lisa Olmedo in [place]. CURRENT MEDICATIONS Reviewed and no changes per EMR. ALLERGIES Reviewed and no changes per EMR. VITAL SIGNS Stable, see EMR. PHYSICAL EXAM GENERAL: Afebrile, in no acute distress. She is awake, alert, and oriented x3, cooperative in the exam with a pleasant affect. She is actually quite perky in the room. SKIN: Clear with normal turgor. HEAD: Normocephalic, atraumatic. EYES: PERRLA. NEURO: Finger to nose touch is normal. Strength testing normal. Patient's speech is clear. IMPRESSION / REPORT / PLAN 1) Muscle tension headache. PLAN 1) Toradol 60 mg IM. 2) Patient has Zofran at home that she will use as needed. 3) Follow-up with primary care provider or per the emergency room if she has any increased or persistent complaints. Yumiko Arana-Frandy dubois Electronically Signed By:KAPIL AGUILAR On 04/15/2010 11:51 AM Source: [facility] MHSDOLBEYNONRADSYS Document Id: [id number] documented in this encounter Miscellaneous Notes Miscellaneous - Christie Herrera, R.N. - 04/08/2010 10:01 AM CDT Adult Cfo Controller Intake/History Adult Cfo Controller Intake/History Entered On: 04/08/2010 10:03 CDT Performed On: 04/08/2010 10:01 CDT by CHRISTIE HERRERA Intake Chief Complaint: migraine x 4 days Temperature Oral: 36.9C(Converted to: 98.4DegF) Peripheral Pulse Rate: 80/min Respiratory Rate: 20/min Systolic Blood Pressure: 102mmHg Diastolic Blood Pressure: 64mmHg NIBP Mean: 77mmHg BP Location: Right upper extremity Actual Weight: 49.200kg(Converted to: 108lb 7oz) Dosing Weight Clinic: 49.20kg CHRISTIE HERRERA - 04/08/2010 10:01 CDT Subjective Pain Symptoms: Yes CHRISTIE HERRERA - 04/08/2010 10:01 CDT Pain Pain Assessment Grid Pain 1 Location: Head Intensity: 9 Quality: Aching, Sharp CHRISTIE HERRERA - 04/08/2010 10:01 CDT Dependent Habits Tobacco Use/Currently Using: Yes CHRISTIE HERRERA - 04/08/2010 10:01 CDT Tobacco Use Grid Type: Cigarettes Cigarette Use Packs/Day: 0.5 CHRISTIE HERRERA - 04/08/2010 10:01 CDT Allergies Allergies (Active) sulfa drugs Estimated Onset Date: Unspecified ; Created By: MARLINE CONTRERAS LPN; Reaction Status: Active ; Category: Drug ; Substance: sulfa drugs ; Type: Allergy ; Updated By: MARLINE CONTRERAS LPN; Reviewed Date: 04/08/2010 9:57 CDT Source: [facility] SPO Document Id: [id number] CDT!26 documented in this encounter Plan of Treatment Not on filedocumented as of this encounter Visit Diagnoses Not on filedocumented in this encounter
--- OUTSIDE RECORDS SUMMARY | 2022-05-02 21:56 | XMS_ITS | Encounter Summary ---
:1990 Author Organization [facility] Address [address] [place] [address] Care Team Providers Name Role Phone Unavailable Primary Care Provider Unavailable Encounter Details Date Type Department Care Team Description 03/11/2005 - Hospital Encounter HX [facility] Jo Ann Cano is 04/01/2005 Etienne Kaplan [address] [place] [id number] Social History Tobacco Use Types Packs/Day Years Used Date Smoking Tobacco: Never Assessed Sex Assigned at Date Recorded Not on file documented as of this encounter Plan of Treatment Not on filedocumented as of this encounter Visit Diagnoses Not on filedocumented in this encounter
--- OUTSIDE RECORDS SUMMARY | 2022-05-02 21:56 | XMS_ITS | Encounter Summary ---
:1990 Author Organization [facility] Address [address] [place] [address] Care Team Providers Name Role Phone Unavailable Primary Care Provider Unavailable Encounter Details Date Type Department Care Team Description 05/12/2010 Hospital Encounter [facility]X [facility] Jeff Mir P.A. -C. [address] [place] [address] (Wo rk) Social History Tobacco Use Types Packs/Day Years Used Date Smoking Tobacco: Never Assessed Sex Assigned at Date Recorded Not on file documented as of this encounter Progress Notes Jeff Mir - 05/12/2010 12:00 AM CST [id number] CHIEF COMPLAINT / REASON FOR VISIT I'm falling asleep while I'm driving. HISTORY OF PRESENT ILLNESS Patient states that she has had the symptoms of falling asleep in the last 5 days. She states that she feels very, very tired. She states that it has not happened to her before that she feels that tired. She does have a father with narcolepsy. She states that even doing simple things is very tiring for her. She is painting and she feels like she is falling asleep and then suddenly she realizes that she is actually sitting up. She has been suffering through this in the last 2 days. IMPRESSION/REPORT/PLAN After brief evaluation and exam we did make a decision to send the patient to Internal Medicine for further evaluation and treatment. Patient states that she is unable to get in with her primary care doctor who is in the [facility]. She is comfortable with this plan. She is going to see Internal Medicine today, Wilfred Uriarte.PDennis, at 10:10. rolando Unger PCharlee am Electronically Signed By:JEFF MIR On 05/19/2010 09:47 AM Source: [facility] MHSDOLBEYNONRADSYS Document Id: [id number] DRIVER documented in this encounter Miscellaneous Notes Miscellaneous - Dez Russo L.P.N. - 05/12/2010 9:31 AM TOUR DRIVER Adult Cold Meat Cook Intake/History Adult Cold Meat Cook Intake/History Entered On: 05/12/2010 9:34 TOUR DRIVER Performed On: 05/12/2010 9:31 TOUR DRIVER by DEZ RUSSO Intake Chief Complaint: Very sleepy and tired for 5 days. Temperature Oral: 36.7C(Converted to: 98.1DegF) Peripheral Pulse Rate: 90/min Respiratory Rate: 16/min Systolic Blood Pressure: 98mmHg Diastolic Blood Pressure: 50mmHg (LOW) NIBP Mean: 66mmHg Actual Weight: 47.000kg Actual Weight Conversion to Pounds: 103.400lb Dosing Weight Clinic: 47.00kg DEZ RUSSO - 05/12/2010 9:31 TOUR DRIVER Subjective Pain Symptoms: No DEZ RUSSO - 05/12/2010 9:31 TOUR DRIVER Dependent Habits Tobacco Use/Currently Using: Yes Exposure to Tobacco Smoke: Patient smokes DEZ RUSSO - 05/12/2010 9:31 TOUR DRIVER Tobacco Use Grid Type: Cigarettes Cigarette Use Packs/Day: 0.5 DEZ RUSSO - 05/12/2010 9:31 TOUR DRIVER Allergies Allergies (Active) sulfa drugs Estimated Onset Date: Unspecified ; Created By: MARLINE CONTRERAS LPN; Reaction Status: Active ; Category: Drug ; Substance: sulfa drugs ; Type: Allergy ; Updated By: MARLINE CONTRERAS LPN; Reviewed Date: 04/23/2010 15:39 CDT Source: [facility] POWERCHART Document Id: [id number] TOUR DRIVER!21 DRIVER documented in this encounter Plan of Treatment Not on filedocumented as of this encounter Visit Diagnoses Not on filedocumented in this encounter
--- OUTSIDE RECORDS SUMMARY | 2022-05-02 21:56 | XMS_ITS | Encounter Summary ---
:1990 Author Organization [facility] Address [address] [place] [address] Care Team Providers Name Role Phone Unavailable Primary Care Provider Unavailable Encounter Details Date Type Department Care Team Description 05/18/2010 Hospital Encounter HX NO MAPPING Can Zamorano M.D. [address] [place] [address] (Wo rk) Social History Tobacco Use Types Packs/Day Years Used Date Smoking Tobacco: Never Assessed Sex Assigned at Date Recorded Not on file documented as of this encounter Plan of Treatment Not on filedocumented as of this encounter Visit Diagnoses Not on filedocumented in this encounter
--- OUTSIDE RECORDS SUMMARY | 2022-05-02 21:56 | XMS_ITS | Encounter Summary ---
:[address] [facility] Address [address] [place] [address] Care Team Providers Name Role Phone Unavailable Primary Care Provider Unavailable Encounter Details Date Type Department Care Team Description 06/25/2010 Hospital Encounter [facility]X [facility] Dami Weems APRN, C.N.P., D.N.P., R.N. Social History Tobacco Use Types Packs/Day Years Used Date Smoking Tobacco: Never Assessed Sex Assigned at Date Recorded Not on file documented as of this encounter Progress Notes Shweta Weems APRN, C.N.P. - 06/25/2010 12:00 AM CST [id number] CHIEF COMPLAINT / REASON FOR VISIT Migraine headache. HISTORY OF PRESENT ILLNESS Abigail is a 20-year-old female who presents to the clinic today with a migraine headache that developed yesterday approximately 5 p.m. She states it is behind bilateral eyes and at the base of her neck. She also states she has some tension in her shoulders. She rates the pain between a 6 and a 7 on a scale of 0 to 10. The patient has tried ibuprofen and Tylenol at home without complete relief. In the past she has tried Imitrex for her migraines, but states it has not been working recently. She did not try Imitrex with this recent migraine. She states that she is planning to seek care under a neurologist and has the card of someone she would like to see and will follow up with that. She is sensitive to light and noise. She is on oral control and denies any possibility of . She does state she has some blurriness of her vision and states this is somewhat a usual finding with her headaches when they reach the pain level that she is at. She states that she has some nausea; however, has had no vomiting and was able to eat lunch without difficulty. She has been drinking fluids well. She denies numbness or tingling down her arms or on her face. Denies shortness of breath or chest pain. She has been voiding without difficulty. 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 She denies use of alcohol. She does smoke 5-6 cigarettes a day. 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 CURRENT MEDICATIONS Suboxone 8 mg/2 mg 1.5 tablets daily. Ethinylestradiol/levonorgestrel 1 tablet daily. Naproxen as needed. Metamucil twice daily. Imitrex 6 mg subcutaneously as needed. ALLERGIES Sulfa drugs. PAST MEDICAL / SURGICAL HISTORY 1) History of substance abuse. 2) Migraine headaches. 3) Constipation. VITAL SIGNS TEMP: 37.5 degreesC PULSE: 80 RESP RATE: 12 BLOOD PRESSURE: 106/66 WEIGHT: 50.3 kg PHYSICAL EXAM GENERAL: This is an alert, oriented, petite female who is found seated in the room with the lights dimmed. HEAD: Normocephalic. EYES: Pupils are equal and reactive to light. NEURO: The patient is able to raise her eyebrows, puff out her cheeks, smile and frown without evidence of neurological changes. ENT: Tympanic membrane are visualized bilaterally. Clear with a dull appearance. No cerumen present. Oral mucosa is pink and moist. Uvula is midline. No lesions noted. Neck is supple. Note slight anterior cervical adenopathy on the right side. HEART: S1, S2. Rhythm is regular. LUNGS: Clear anteriorly and posteriorly bilaterally throughout all mallory. MUSCULOSKELETAL: Hand grasp is equal bilaterally. IMPRESSION/REPORT/PLAN 1) Migraine headache. Patient was given Toradol 60 mg intramuscularly in the clinic and was kept for 15-20 minutes to ensure no reaction. The patient stated she did not have relief of pain. Patient was offered to stay in the clinic to follow up on pain relief within another 15 minutes. Patient declined and chose to return to home. Patient did have ambulette driver available for her. Patient was instructed if headache does not improve she should either go to the Emergency Room or return to the clinic during open hours. Patient understands and agrees with plan of care. Patient was instructed not to use other NSAIDs for the next 4 hours and use Tylenol as needed. Kiki Islas Electronically Signed By:SHWETA MEJIA On 06/29/2010 01:53 PM Source: [facility] MHSDOLBEYNONRADSYS Document Id: [id number] CE AUTOMATION TECHNICIAN documented in this encounter Miscellaneous Notes Miscellaneous - Shweta Weems APRN, C.NDennisPDennis - 06/25/2010 3:59 PM OFFICE AUTOMATION TECHNICIAN Ambulatory Patient Summary [facility] [address] [place] [address] Visit Information Name: ABIGAIL MARI Current Date: 06/25/2010 15:59:30 Primary Care Provider: [facility] Your Medications Here is a list of your medications. It is important to take your medications as directed. Use a pillbox or chart to help remind you to take your medications. Please let your doctor or nurse know if you have problems taking your medications. Medication/Strength Dose Route Frequency Indications/Special Instructions/Comments naproxen (naproxen) Oral as needed sumatriptan (Imitrex) 6 mg Subcutaneous once a [...] Chlamydia every 1 year Females Age 15-24 06/25/2010 Screening Pap Smear every 3 years Women 21-65 06/25/2010 Checks for signs of cancer of the cervix. Lipid Panel every 5 years Age 20-75 06/25/2010 Checks blood for good (HDL) and bad (LDL) cholesterol. Know your numbers, they are one indicator of your risk for heart attack and stroke. Vaccine: Tetanus every 10 years 11/19/2008 11/17/2018 Immunization to help prevent you from getting the serious disease Tetanus (Lockjaw). Your Upcoming Appointments Date Time Location Reason Provider 07/22/2010 15:30 [facility] persistant dysuria, frequency, nocturia . Negative UA for UTI SneidersMD, Jos Your Goals/Additional instructions: Source: [facility] POWERCHART Document Id: [id number] Miscellaneous - Shweta Weems APRN, C.N.P. - 06/25/2010 3:59 PM OFFICE AUTOMATION TECHNICIAN Ambulatory Depart Summary [address] [address] Visit Information Name: ABIGAIL MARI Current Date: 06/25/2010 15:59:29 Primary Care Provider: [facility] ABIGAIL MARI has been given the following list of medications: Your Medications It is important to take your medications as directed. Use a pill box or chart to help remind you to take your medications. Please let your doctor or nurse know if you have problems taking your medications. Medication/Strength Dose Route Frequency Indications/Special Instructions/Comments naproxen (naproxen) Oral as needed sumatriptan (Imitrex) 6 mg Subcutaneous once a day psyllium (Metamucil) scoop Oral two times a day buprenorphine-naloxone (Suboxone 8 mg-2 mg sublingual tablet) 1.5 tab(s) Sublingual once a day ethinyl estradiol-levonorgestrel (Seasonique oral tablet) 1 tab(s) Oral once a day Additional Information: Yes - Current list of reconciled medications is provided and explained to the patient and/or family, guardian/caregiver. Source: [facility] POWERCHART Document Id: [id number] Miscellaneous - Conversion, Historical Provider Ser - 06/25/2010 3:32 PM OFFICE AUTOMATION TECHNICIAN Adult Linen Room Supervisor Intake/History Adult Linen Room Supervisor Intake/History Entered On: 06/25/2010 15:35 OFFICE AUTOMATION TECHNICIAN Performed On: 06/25/2010 15:32 OFFICE AUTOMATION TECHNICIAN by SEPIDEH SIDHU Intake Chief Complaint: migraine Onset of Symptoms: started last night Temperature Oral: 37.5C(Converted to: 99.5DegF) (HI) Peripheral Pulse Rate: 80/min Respiratory Rate: 12/min (LOW) Systolic Blood Pressure: 106mmHg Diastolic Blood Pressure: 66mmHg NIBP Mean: 79mmHg BP Location: Right upper extremity Heart Rhythm: Regular Actual Weight: 50.300kg(Converted to: 110lb 14oz) Weight Source: Standing scale Dosing Weight Clinic: 50.30kg SEPIDEH SIDHU - 06/25/2010 15:32 OFFICE AUTOMATION TECHNICIAN Subjective Pain Symptoms: Yes SEPIDEH SIDHU - 06/25/2010 15:32 OFFICE AUTOMATION TECHNICIAN Pain Pain Assessment Grid Pain 1 Location: Other: neck,head Laterality: Bilateral Intensity: 6 SEPIDEH SIDHU 06/25/2010 15:32 OFFICE AUTOMATION TECHNICIAN Dependent Habits Tobacco Use/Currently Using: Yes Exposure to Tobacco Smoke: Patient smokes SEPIDEH SIDHU - 06/25/2010 15:32 OFFICE AUTOMATION TECHNICIAN Tobacco Use Grid Type: Cigarettes Cigarette Use Packs/Day: 0.5 SEPIDEH SIDHU 06/25/2010 15:32 OFFICE AUTOMATION TECHNICIAN Alcohol Use: No SEPIDEH SIDHU 06/25/2010 15:32 OFFICE AUTOMATION TECHNICIAN Allergies Allergies (Active) sulfa drugs Estimated Onset Date: Unspecified ; Reactions: hives ; Created By: NATHAN MONET; Reaction Status: Active ; Category: Drug ; Substance: sulfa drugs ; Type: Allergy ; Severity: Moderate ; Updated By: NATHAN MONET; Source: Patient ; Reviewed Date: 06/25/2010 15:30 OFFICE AUTOMATION TECHNICIAN Source: [facility] POWERCHART Document Id: [id number] OFFICE AUTOMATION TECHNICIAN!31 documented in this encounter Plan of Treatment Not on filedocumented as of this encounter Visit Diagnoses Not on filedocumented in this encounter
--- OUTSIDE RECORDS SUMMARY | 2022-05-02 21:56 | XMS_ITS | Encounter Summary ---
:1990 Author Organization [facility] Address [address] [place] [address] Care Team Providers Name Role Phone Unavailable Primary Care Provider Unavailable Encounter Details Date Type Department Care Team Description 05/04/2005 - Hospital Encounter HX [facility] Jo Ann Cano is 05/21/2005 Etienne Kaplan [address] [place] [address] Social History Tobacco Use Types Packs/Day Years Used Date Smoking Tobacco: Never Assessed Sex Assigned at Date Recorded Not on file documented as of this encounter Plan of Treatment Not on filedocumented as of this encounter Visit Diagnoses Not on filedocumented in this encounter
--- OUTSIDE RECORDS SUMMARY | 2022-05-02 21:56 | XMS_ITS | Encounter Summary ---
:1990 Author Organization [facility] Address [address] [place] [address] Care Team Providers Name Role Phone Unavailable Primary Care Provider Unavailable Encounter Details Date Type Department Care Team Description 03/20/2010 Hospital Encounter [facility] Khushi Patterson M.D. [address] [place] [address] (Wo rk) Social History Tobacco Use Types Packs/Day Years Used Date Smoking Tobacco: Never Assessed Sex Assigned at Date Recorded Not on file documented as of this encounter Progress Notes Kwan Patterson M.D. - 03/20/2010 12:00 AM CDT [id number] HISTORY OF PRESENT ILLNESS Kvgtty[age]qdn-[id number]-old female with constipation for a month. Very bad over the last 4 days, to the point where she has been nauseous and almost vomiting at times too. Has not been able to get anything down, fluid or solid, today at all. PHYSICAL EXAM GENERAL: Patient is awake and alert, looks uncomfortable. ENT: Mucous membranes are dry. ABDOMEN: Flat and nondistended. IMPRESSION / REPORT / PLAN Looking at her x-ray from yesterday, it does look like she has a lot of stool from the rectum up through the entire colon. Measures that were discussed with her yesterday here in the clinic have not worked at all. We are going to send the patient to the Emergency Room for further treatment. Discussed with Dr. Ebony Fuller. Kwan Patterson M.D. akg Electronically Signed By:KWAN PATTERSON MD On 03/27/2010 08:14 AM Source: [facility] MHSDOLBEYNONRADSYS Document Id: [id number] documented in this encounter Miscellaneous Notes Miscellaneous - Conversion, Historical Provider Ser - 03/20/2010 4:11 PM CDT Adult Sports Photographer Intake/History Adult Sports Photographer Intake/History Entered On: 03/20/2010 16:14 CDT Performed On: 03/20/2010 16:11 CDT by DANE WILSON Intake Chief Complaint: Constipation, vomiting, concerned about dehydration Onset of Symptoms: 1 month Temperature Oral: 36.8C(Converted to: 98.2DegF) Peripheral Pulse Rate: 104/min (HI) Respiratory Rate: 20/min Systolic Blood Pressure: 104mmHg Diastolic Blood Pressure: 64mmHg NIBP Mean: 77mmHg BP Location: Right upper extremity Actual Weight: 47.900kg(Converted to: 105lb 10oz) Dosing Weight Clinic: 47.90kg DANE WILSON - 03/20/2010 16:11 CDT Subjective Pain Symptoms: No DANE WILSON 03/20/2010 16:11 CDT Dependent Habits Tobacco Use/Currently Using: Yes DANE WILSON 03/20/2010 16:11 CDT Tobacco Use Grid Type: Cigarettes Cigarette Use Packs/Day: 0.5 DANE WILSON 03/20/2010 16:11 CDT Allergies Allergies (Active) sulfa drugs Estimated Onset Date: Unspecified ; Created By: MARLINE CONTRERAS LPN; Reaction Status: Active ; Category: Drug ; Substance: sulfa drugs ; Type: Allergy ; Updated By: MARLINE CONTRERAS LPN; Reviewed Date: 03/20/2010 15:54 CDT Source: [facility] POWERCHART Document Id: [id number] CDT!21 documented in this encounter Plan of Treatment Not on filedocumented as of this encounter Visit Diagnoses Not on filedocumented in this encounter
--- OUTSIDE RECORDS SUMMARY | 2022-05-02 21:56 | XMS_ITS | Encounter Summary ---
:1990 Author Organization [facility] Address [address] [place] [address] Care Team Providers Name Role Phone Unavailable Primary Care Provider Unavailable Encounter Details Date Type Department Care Team Description 05/25/2010 Hospital Encounter [facility] Peter Hartman D.O. [address] [place] [address] (Wo rk) Social History Tobacco Use Types Packs/Day Years Used Date Smoking Tobacco: Never Assessed Sex Assigned at Date Recorded Not on file documented as of this encounter Progress Notes Peter Hartman D.O. - 05/25/2010 12:00 AM CST [id number] CHIEF COMPLAINT / REASON FOR VISIT Possible urinary tract infection. HISTORY OF PRESENT ILLNESS The patient presents to the Urgent Care Department for reevaluation of a urinary tract infection. She was apparently seen in the Emergency Department approximately 10 days ago, diagnosed with a urinary tract infection and started on Macrobid twice a day, #14. She states that she waited a couple days to pickler helper the prescription for financial reasons. She has a couple of days of the Macrobid left but is continuing to have symptoms of urinary frequency with denied dysuria. SYSTEMS REVIEW She has quite a flighty review of systems, complaining that she is not sleeping at night, having vaginal spotting, and is unable to close her legs together secondary to discomfort. She also complains of some tingling in the genital region, sweating, and left breast pain. ALLERGIES Sulfa. CURRENT MEDICATIONS Imitrex 6 mg subcutaneous. Metamucil one scoop twice a day. Seasonique BCP. PAST MEDICAL / SURGICAL HISTORY 1) Constipation. 2) History of drug addiction. 3) The patient reports that she had a urinary tract infection approximately a month ago. VITAL SIGNS TEMPERATURE: 37.0 degreesC HEART RATE: 76 RESP RATE: 16/min BLOOD PRESSURE: 114/78 PHYSICAL EXAM GENERAL: Examination reveals a thin, animated, 20-year-old, female who appears to be in minimal discomfort. ABDOMEN: Giovanny's sign is negative with mild palpable tenderness over the suprapubic region. IMPRESSION/REPORT/PLAN DIAGNOSTICS: Urinalysis not repeated at this time. 1) Urinary tract infection, unresponsive to Macrobid. Plan: At this time, given the lack of response to Macrobid and allergies to sulfa, we will treat alternatively with Cipro 500 mg twice a day, #20. The patient will continue to force fluids, and if she fails to see lack of improvement in her symptoms, encouraged her to follow up within the next several days with such symptoms to include increasing urinary symptoms, fever, flank pain, etc. Peter Hartman D.O. bft Electronically Signed By:PETER HARTMAN DO On 05/30/2010 12:45 PM Source: [facility] MHSDOLBEYNONRADSYS Document Id: [id number] ING MACHINE SET UP OPERATOR documented in this encounter Miscellaneous Notes Miscellaneous - Conversion, Historical Provider Ser - 05/25/2010 3:12 PM TINNING MACHINE SET UP OPERATOR Adult Card Lacer Jacquard Intake/History Adult Card Lacer Jacquard Intake/History Entered On: 05/25/2010 15:15 TINNING MACHINE SET UP OPERATOR Performed On: 05/25/2010 15:12 TINNING MACHINE SET UP OPERATOR by LUIS MIGUEL BOLIVAR Intake Chief Complaint: Dx with UTI, on medicine but symptoms are getting worse Onset of Symptoms: 1 week ago Temperature Oral: 37.0C(Converted to: 98.6DegF) Peripheral Pulse Rate: 76/min Respiratory Rate: 16/min Systolic Blood Pressure: 114mmHg Diastolic Blood Pressure: 78mmHg NIBP Mean: 90mmHg BP Location: Right upper extremity Heart Rhythm: Regular Actual Weight: 48.300kg(Converted to: 106lb 8oz) Weight Source: Standing scale Dosing Weight Clinic: 48.30kg LUIS MIGUEL BOLIVAR - 05/25/2010 15:12 TINNING MACHINE SET UP OPERATOR Subjective Pain Symptoms: No LUIS MIGUEL BOLIVAR Artur - 05/25/2010 15:12 TINNING MACHINE SET UP OPERATOR Dependent Habits Tobacco Use/Currently Using: Yes Exposure to Tobacco Smoke: Patient smokes LUIS MIGUEL BOLIVAR Artur - 05/25/2010 15:12 TINNING MACHINE SET UP OPERATOR Tobacco Use Grid Type: Cigarettes Cigarette Use Packs/Day: 0.5 LUIS MIGUEL BOLIVAR Artur - 05/25/2010 15:12 TINNING MACHINE SET UP OPERATOR Allergies Allergies (Active) sulfa drugs Estimated Onset Date: Unspecified ; Created By: MARLINE CONTRERAS LPN; Reaction Status: Active ; Category: Drug ; Substance: sulfa drugs ; Type: Allergy ; Updated By: MARLINE CONTRERAS LPN; Reviewed Date: 05/25/2010 15:06 TINNING MACHINE SET UP OPERATOR Source: [facility] POWERCHART Document Id: [id number] TINNING MACHINE SET UP OPERATOR!24 documented in this encounter Plan of Treatment Not on filedocumented as of this encounter Visit Diagnoses Not on filedocumented in this encounter
--- OUTSIDE RECORDS SUMMARY | 2022-05-02 21:56 | XMS_ITS | Encounter Summary ---
:1990 Author Organization [facility] Address [address] [place] [address] Care Team Providers Name Role Phone Unavailable Primary Care Provider Unavailable Encounter Details Date Type Department Care Team Description 06/05/2010 Hospital Encounter HX [facility] Keara Garcia M.D. [address] [place], [place] [address] Social History Tobacco Use Types Packs/Day Years Used Date Smoking Tobacco: Never Assessed Sex Assigned at Date Recorded Not on file documented as of this encounter Progress Notes Jannette Garcia M.D. - 06/05/2010 12:00 AM CST [id number] HISTORY OF PRESENT ILLNESS Florecita is a 20-year-old 1, para 1 young lady who presents today accompanied by her significant other. Recently, on June 01, 2010, the patient was seen and evaluated in the emergency department at the [facility] by Dr. Kailee Panchal for a presumable urinary tract infection. The emergency department note is reviewed. It appears that the patient has been having urinary frequency for the last 2 months. She states that she feels she has to go to the bathroom every 30 to 40 minutes, including at least 4 to 5 times per night. On careful questioning, it appears that she drinks up to 500 mL bottles of water and soft drinks per day. She recently was started on Cipro for a presumable urinary tract infection, given her urinary symptoms. However, in the emergency department on June 01, 2010, there was no evidence of urinary tract infection based on the urinalysis. In the emergency department, the patient had a negative hCG, a negative D-dimer, and an unremarkable metabolic panel with the exception of amylase elevated to 178. At the present time, the patient is taking cimetidine 300 mg by mouth 3 times a day for presumable cystitis according to the emergency room note. Cipro was discontinued. According to the chart, specimens for GC and chlamydia were also obtained in the emergency department in [place] on June 01, 2010. However, the results are not available yet. PAST MEDICAL / SURGICAL HISTORY 1) History of chemical dependency, currently treated with Suboxone. As per her report, she has been clean for the last 6 months. 2) Status post tonsillectomy. 3) History of migraines. 4) Constipation. FAMILY HISTORY There is a family history of hypertension, hypothyroidism, and a history of narcolepsy in her biological father. SOCIAL HISTORY The patient has a significant other. She smokes cigarettes on rare occasions. She does not drink alcohol. The patient has a 09-extsg-vly son. The patient works at [employer] 5 days a week. ALLERGIES Sulfa (hives). CURRENT MEDICATIONS Suboxone 8/2 mg one and a half pills daily. Imitrex 6 mg subcutaneously as needed for migraines. Tagamet 1 pill by mouth twice a day. Naproxen 1 to 2 pills twice a day as needed. Seasonique 1 pill daily. SYSTEMS REVIEW GENERAL: The patient denies headache, lightheadedness, and dizziness. EYES: Denies blurry vision, double vision, and conjunctival discharge. ENT: Denies bleeding gums, toothache, and difficulty swallowing. RESPIRATORY: Denies shortness of breath, cough, and wheezing. CARDIOVASCULAR: Denies chest pain, palpitations, and dyspnea on exertion. GI: Denies abdominal pain, nausea, vomiting, or poor appetite. : As outlined in history of present illness. VITAL SIGNS TEMP: 36.5 degrees C WEIGHT: 50.7 kg BLOOD PRESSURE: 100/66 PHYSICAL EXAM GENERAL: The patient is pleasant, in no distress. HEAD: Normocephalic, atraumatic. No deformities. EYES: Extraocular movements are intact. Sclerae are anicteric. Pupillary reactions are equal to light. Eyelids and eyelashes are intact. ENT: Mouth has good oral hygiene with no pharyngeal erythema. No tonsillar enlargement. No postnasal drip appreciated. Neck is supple with no lymphadenopathy. HEART: Rate is regular. S1 and S2 present. No rubs, gallops, or murmurs. LUNGS: Good air entry bilaterally. Clear to auscultation bilaterally. No rales, rhonchi, or wheezing appreciated. ABDOMEN: Nondistended. Present bowel sounds in all 4 quadrants. Soft, nontender to palpation. No muscle guarding or rebound tenderness. No masses palpated. No suprapubic tenderness. No costovertebral angle tenderness. PELVIS: No suprapubic tenderness. No CVA tenderness. Pelvic exam is deferred (the patient had a GC/chlamydia test done in the emergency department on June 01, 2010, in [place]). EXTREMITIES: Symmetric. SPINE: No evidence of scoliosis. SKIN: Warm and dry. No petechiae. No jaundice. Normal turgor. IMPRESSION / REPORT / PLAN 1) Urinary frequency. The patient did not have evidence of a urinary tract infection based on the recent urine test results from June 11, 2010, from the [facility]. I discussed with the patient that her urinary frequency may be due to the large amounts of fluids that she consumes. I recommended she decrease her fluid intake to 8 glasses per day. The patient is also interested in a urology consult. A referral request was submitted. 2) Elevated amylase. The amylase levels were obtained and currently are within normal limits at 56 units per liter. At this time, no further workup is needed. Jannette Garcia M.D. nac Electronically Signed By:JANNETTE GARCIA MD On 07/08/2010 03:43 PM Source: [facility] [id number] Document Id: [id number] L RAISER OPERATOR documented in this encounter Miscellaneous Notes Miscellaneous - Conversion, Historical Provider Ser - 06/05/2010 3:26 PM PANEL RAISER OPERATOR Pediatric Cap Blocker Intake/History Pediatric Cap Blocker Intake/History Entered On: 06/05/2010 15:31 PANEL RAISER OPERATOR Performed On: 06/05/2010 15:26 PANEL RAISER OPERATOR by NATHAN MONET Chief Complaint: er fields this last tuesday Onset of Symptoms: 6 weeks ago Ambulatory Intake Additional Information: tired, migraines , ?bladder infection. told has high amylase has cold sweats Temperature Oral: 36.5C(Converted to: 97.7DegF) Peripheral Pulse Rate: 72/min Systolic Blood Pressure: 100mmHg Diastolic Blood Pressure: 66mmHg NIBP Mean: 77mmHg BP Location: Right upper extremity Heart Rhythm: Regular Actual Weight: 50.700kg(Converted to: 111lb 12oz) Dosing Weight Clinic: 50.70kg NATHAN MONET - 06/05/2010 15:26 PANEL RAISER OPERATOR Subjective Pain Symptoms: Yes Genitourinary Symptoms: Frequency Musculoskeletal Symptoms: Pain NATHAN MONET - 06/05/2010 15:26 PANEL RAISER OPERATOR Pain Pain Assessment Grid Pain 1 Pain 2 Pain 3 Location: Lower back Abdomen Other: urinary frequency NATHAN MONET - 06/05/2010 15:26 PANEL RAISER OPERATOR NATHAN MONET - 06/05/2010 15:26 PANEL RAISER OPERATOR NATHAN MONET- 06/05/2010 15:26 PANEL RAISER OPERATOR Dependent Habits Tobacco Use/Currently Using: No Exposure to Tobacco Smoke: Patient smokes Alcohol Use: No NATHAN MONET - 06/05/2010 15:26 PANEL RAISER OPERATOR Allergy Allergies (Active) sulfa drugs Estimated Onset Date: Unspecified ; Reactions: hives ; Created By: NATHAN MONET; Reaction Status: Active ; Category: Drug ; Substance: sulfa drugs ; Type: Allergy ; Severity: Moderate ; Updated By: NATHAN MONET; Source: Patient ; Reviewed Date: 06/05/2010 15:25 PANEL RAISER OPERATOR Source: [facility] POWERCHART Document Id: [id number] PANEL RAISER OPERATOR!30 documented in this encounter Plan of Treatment Not on filedocumented as of this encounter Visit Diagnoses Not on filedocumented in this encounter
--- OUTSIDE RECORDS SUMMARY | 2022-05-02 21:56 | XMS_ITS | Encounter Summary ---
:1990 Author Organization [facility] Address [address] [place] [address] Care Team Providers Name Role Phone Unavailable Primary Care Provider Unavailable Encounter Details Date Type Department Care Team Description 03/12/2005 Hospital Encounter HX [facility] OUTPT Jenaro Arzate, C.N.P. Social History Tobacco Use Types Packs/Day Years Used Date Smoking Tobacco: Never Assessed Sex Assigned at Date Recorded Not on file documented as of this encounter Plan of Treatment Not on filedocumented as of this encounter Visit Diagnoses Not on filedocumented in this encounter
--- OUTSIDE RECORDS SUMMARY | 2022-05-02 21:57 | XMS_ITS ---
[...] by ? 07/21/2020 XR, Chest, 2 View [facility] er (Imaging) [address] [place], [place] [id number] (Work Place) Results Lab Results Date Name Specimen Result Interpretation Description Value Range Status Address ? 07/24/2020 Urinalysis, URC Normal Urine unspecified ? Edmundo luke [place] Reflex Source [facility] Culture Center (Lab): [address], [place] ? ? URC Normal Color Ur yellow lt - Final [facility] w (Lab): [address], [place] ? ? URC ABNORMAL Clarity Ur SL cloudy clear Final [place] [facility] (Lab): [address], [place] ? ? URC Normal Glucose Ur negative mg/dL negat [facility] 00 Center mg/dL (Lab): mg/dL [address], [place] ? ? URC Normal Ketones Ur negative mg/dL negat [facility] trace Center mg/dL (Lab): [address], [place] ? ? URC Normal Bilirubin negative negat Final [facility] (Lab): [address], [place] ? ? URC Normal Specific 1.020 1.005 Final [place] Ur -1.03 Medic l Center (Lab): [address], [place] ? ? URC Normal pH Ur 8.0 5.0-8 Final [place] .0 [facility] Center (Lab): [address], [place] ? ? URC Normal Blood Ur negative negat Final [facility] Center (Lab): [address], [place] ? ? URC Normal Protein Ur negative mg/dL negat [facility] 0 Center mg/dL (Lab): [address], [place] ? ? URC Normal Urobilinog 0.2 E.U./dL 0.2-1 Final [place] en .0 Medical E.U./ Center dL (Lab): [address], [place] ? ? URC Normal Nitrate negative negat Final [facility] Medical Center (Lab): [address], [place] ? ? URC Normal Leukocyte negative negat Final [facility]a Esterase [facility] Center (Lab): [address], [place] 07/24/2020 Urinalysis, URC Normal Urine unspecified ? Fin al [place] Microscopic Source Medic al Center (Lab): [address], [place] ? ? URC Normal RBC Ur 0-2 [hpf] 0-2 Final [place] a /hpf Medical [hpf] Center (Lab): [address], [place] ? ? URC Normal WBC Ur 0-2 [hpf] 0-2 Final [place] a /hpf Medical [hpf] Center (Lab): [address], [place] ? ? URC Normal WBC Clumps none seen none Final [place] seen [facility] Center (Lab): [address], [place] ? ? URC Normal Bacteria few none Final [place] Ur seen [facility] Center (Lab): [address], [place] ? ? URC ABNORMAL Squamous few none- Final [place] Cells occas [facility] ional Center (Lab): [address], [place] ? ? URC ABNORMAL Mucus few none Final [place] [facility] (Lab): [address], [place] ? ? URC Normal Casts none seen none Final [place] seen [facility] (Lab): [address], [place] ? ? URC Normal Crystals none seen none Final [place] [facility] (Lab): [address], [place] 07/24/2020 HIV 1+2 Ab + P Normal HIV P24 not detected not Final [place] HIV1 P24 Ag, Antigen detec [facility] ical QL, Rapid, [facility] Immunoassay, (Lab ): Serum or [address], [place] ? ? P Normal HIV 1/2 not detected not Final [place] Antibody detec [facility] (Lab): [address], [place] 07/24/2020 CT + NG DNA, XXX Normal Chlamydia not detected not Final [place] PCR, Trachomatis detec Medic al Unspecified PCR [facility] r Specimen (Lab): [address], [place] ? ? XXX Normal Neisseria not detected not Final [place] Gonorrheae detec Medica l PCR [facility] (Lab): [address], [place] ? ? XXX Normal Source_chg no answer given ? Fin al [place] c [facility] (Lab): [address], [place] 07/24/2020 Hepatitis B SER Unknown Results see reference ? Final [place] Surface Ab, lab report M edical Quantitative Cent er , Serum (Lab): [address], [place] 07/24/2020 Serology, SER Unknown Results see reference ? Final [place] Syphilis lab report [facility] Center (Lab): [address], [place] 07/24/2020 HBsAg SER Unknown Results see reference ? Edmundo Alexander (Hepatitis B lab report Medical Surface Ag), Cent er Serum (Lab): [address], [place] 07/24/2020 Hepatitis C SER Unknown Abnormal ? ? ? Kathleen Ab, Serum Status [facility] Center (Lab): [address], [place] 07/21/2020 CBC W/ Auto WB High Wbc 13.1 10*3/uL 4.1-1 Fi nal [place] Diff 1.0 Medical 10*3/ Center uL (Lab): [address], [place] ? ? WB High Rbc 5.15 10*6/uL 3.85- Final [place] 5.05 Medical 10*6/ Center uL (Lab): [address], [place] ? ? WB Normal Hemoglobin 15.4 g/dL 11.7- Final [place] 15.5 Medical g/dL Center (Lab): [address], [place] ? ? WB High Hematocrit 47.1 % 35.0- Final [place] 46.0 Medical % Center (Lab): [address], [place] ? ? WB Normal Mcv 92 fL 82-99 Final [place] fL [facility] Center (Lab): [address], [place] ? ? WB Normal Mch 29.9 pg 26.0- Final [place] 34.0 Medical pg Center (Lab): [address], [place] ? ? WB Normal Mchc 32.7 g/dL 32.0- Final [place] 36.0 Medical g/dL Center (Lab): [address], [place] ? ? WB Normal RDW-CV 13.1 % 11.5- Final [place] 15.0 Medical % Center (Lab): [address], [place] ? ? WB High Platelets 501 10*3/uL 150-4 Final [place] 50 Medical 10*3/ Center uL (Lab): [address], [place] ? ? WB Normal Mpv 9.3 fL 6.5-1 Final [place] 1.0 Medical fL Center (Lab): [address], [place] ? ? WB High Neutrophil 79.5 % 45.0- Final [place] % 70.0 Medical % Center (Lab): [address], [place] ? ? WB Low Lymphocyte 14.5 % 20.0- Final [place] % 40.0 Medical % Center (Lab): [address], [place] ? ? WB Normal Monocyte % 5.1 % 3.0-1 Final [place] 0.0 % Medical Center (Lab): [address], [place] ? ? WB Low Eosinophil 0.5 % 1.0-5 Final [place] % .0 % Medical Center (Lab): [address], [place] ? ? WB Normal Basophil % 0.2 % <0.5 Final [place] % Medical Center (Lab): [address], [place] ? ? WB Normal Immature 0.2 % 0.0-4 Final [place] Granulocyte .0 % Medic al % Center (Lab): [address], [place] ? ? WB High Neutrophil 10.40 10*3/uL 2.00- Final [place] # 7.50 Medical 10*3/ Center uL (Lab): [address], [place] ? ? WB Normal Lymphocyte 1.90 10*3/uL 1.50- Final [place] # 4.00 Medical 10*3/ Center uL (Lab): [address], [place] ? ? WB Normal Monocyte # 0.67 10*3/uL 0.20- Final [place] 0.80 Medical 10*3/ Center uL (Lab): [address], [place] ? ? WB Normal Eosinophil 0.06 10*3/uL 0.04- Final [place] # 0.40 Medical 10*3/ Center uL (Lab): [address], [place] ? ? WB Normal Basophil # 0.03 10*3/uL 0.02- Final [place] 0.10 Medical 10*3/ Center uL (Lab): [address], [place] ? ? WB Normal Immature 0.03 10*3/uL 0.00- Final [place] Granulocyte 4.30 Medic al # 10*3/ Center uL (Lab): [address], [place] ? ? WB Normal Manual not indicated ? Final [place] Diff Medical W/smear Center Review (Lab): [address], [place] 07/21/2020 Differential WB Normal Segmented 66 % 39-78 Fin al [place] , Manual, PMN % Medical Blood Center (Lab): [address], [place] ? ? WB Normal Lymphocyte 26 % 12-50 Final [place] % Medical Center (Lab): [address], [place] ? ? WB Normal Monocyte 7 % 1-12 Final [place] % Medical Center (Lab): [address], [place] ? ? WB Normal Eosinophil 0 % 0-7 % Final [place] [facility] Center (Lab): [address], [place] ? ? WB Normal Basophil 1 % 0-2 % Final [place] [facility] (Lab): [address], [place] ? ? WB Normal # Cells 100 ? Final [place] Counted Medical Center (Lab): [address], [place] ? ? WB Normal RBC normocytic/norm ? Final [place] Morphology ochromic [facility] anjali Center (Lab): [address], [place] ? ? WB Normal WBC reviewed, ? Final [place] Morphology normal Medica l Center (Lab): [address], [place] ? ? WB Normal Plt reviewed, ? Final [place] Morphology normal [facility] (Lab): [address], [place] ? ? WB Normal Platelet thrombocytosis ? Final [place] [facility] (Lab): [address], [place] 07/21/2020 SARS CoV 2 NPSWAB Unknown Abnormal ? ? ? [place] RNA Status Medical (COVID-19), Renita MONTES, textile bag sewer-PCR, (Lab ): Respiratory [address], [place] Past Encounters None recorded. Social History Tobacco [...]
== END 2022-05-02 22:03 | disposition home or self-care (01) ==
PROVIDERS: Emergency Provider Family Medicine; PCP Family Medicine
DX: N39.0 Urinary tract infection, site not specified (principal)
CPT/HCPCS: 81001; 87086; 96372; 99283; J0696

== ENCOUNTER 2024-02-10 13:57 | Outpatient (RCR) | payer BC, SELFPAY | END 2024-05-16 16:11 | disposition home or self-care (01) | PROVIDERS: PCP Family Medicine; Visit Provider Family Medicine | DX: M54.2 Cervicalgia (principal); M79.12 Myalgia of auxiliary muscles, head and neck; G44.86 Cervicogenic headache; R29.3 Abnormal posture; Z51.89 Encounter for other specified aftercare | CPT/HCPCS: 97110; 97112; 97161 ==

== ENCOUNTER 2025-01-31 14:13 | Emergency (ER) | payer BC, SELFPAY ==
--- OUTSIDE RECORDS SUMMARY | 2025-01-31 14:16 | XMS_ITS | Clinical Summary ---
Author Organization [facility] Address [address] [place] [address] Care Team Providers Care Pellet Post Inspector Name Role Phone None Reported, Pcp Primary Care Provider Unavail able Source Comments Patient records contain information from all sites at [facility]. For routine questions regarding patient records, call [phone] during business hours, M-F 8:00 AM - 5:00 PM Central Time. Record requests for emergency care only can be directed to [phone] at any time.[facility] Allergies Active Allergy Reactions Criticality Noted Date Comments Sulfa (Sulfonamide Antibiotics) Hives (Reselect Reaction) High 08/24/2006 Medications ibuprofen (MOTRIN) 400 mg tablet Take 400 mg by mouth every 6 (six) hours as needed for pain. Active cyclobenzaprine (FLEXERIL) 10 mg tablet as needed. 3 Active atorvastatin (Lipitor) 40 mg tablet Take 1 tablet by mouth at bedtime. 4 Active pantoprazole (Protonix) 40 mg EC tablet Take 40 mg by mouth. 4 Active polyethylene glycol (Miralax) 17 gram/dose oral powder Take 17 g by mouth daily. Dissolve each 17 g dose in 240 mL (8 ounces) of beverage. Every three days consider increasing the dose to achieve the desired effect/stool consistency. 4 Active Active Problems Problem Noted Date Diagnosed Date Migraine Headache 01/03/2023 Dependence Drug 03/19/2010 Overview (11/09/2016): Drug addiction NOS Immunizations Immunization Administration Dates Next Due DTaP (Infanrix, Tripedia) 11/19/2008,03/08/2005 HepB Adult 03/14/2009,01/02/2009,11/19/2008 HepB, Unspecified 03/14/2009,01/02/2009,11/20/19 09 Influenza TIV (IM) 03/22/2012, 1,03/14/2009,2007 Influenza, Seasonal, Injectable 03/22/2012,03/14,04/23/2008 Influenza, Unspecified 03/14/2009,04/23/2008 Tdap 11/03/2017,11/19/2008,03/08/2005 influenza trivalent vaccine (6 months and older)(PF) 04/02/2011 influenza vaccine quad (FLUZONE/FLUARIX) (6 months and older)(PF) 03/15/2018,07/08/2017,06/03/2016,2014 Social History Tobacco Use Types Packs/Day Years Used Date Smoking Tobacco: Every Day Cigarettes Tobacco Cessation:Ready to Q uit: Not Asked; Counseling Given: Not Answered Comments:Currently vaping when not smoking cigs Alcohol Use Standard Drinks/Week Comments Not Currently 0 (1 standard drink = 0.6 oz pur e alcohol) [facility] Utilities Answer Date Recorded In the past 12 months has e citibuddies, gas, oil, or water [employer] threatened to shut off services in your home? No 06/22/2023 Hunger Vital Sign Answer Date Recorded Within the past 12 months, y ou worried that your food would run out before you got the money to buy more. Sometimes true Within the past 12 months, t he food you bought just didn't last and you didn't have money to get more. Sometimes true 08/2023 PRAPARE - Transportation Answer Date Re corded In the past 12 months, has l ack of transportation kept you from medical appointments or from getting medications? Yes 08/2023 In the past 12 months, has l ack of transportation kept you from meetings, work, or from getting things needed for daily living? Yes 06/22/2023 Housing Stability Answer Date Recorded What is your living situatio n today? I do not have a steady place to live (I am temporarily staying with others, in a hotel, in a mcc, living outside on the street, on a beach, in a car, abandoned building, bus or train station, or in a park) 06/22/2023 Comments No Sex and Gender Information Value Date Recorded Sex Assigned at Female 06/22/2023 8:02 AM SENIOR PATROL AGENT Legal Sex Female 4:27 AM SENIOR PATROL AGENT Gender Identity Female 06/22/2023 8:02 AM SENIOR PATROL AGENT Sexual Orientation Straight 06/22/2023 8: 02 AM SENIOR PATROL AGENT Last Filed Vital Signs Vital Sign Reading Time Taken Comments Blood Pressure 93/55 07/29/2024 9:00 AM SENIOR PATROL AGENT Pulse 78 07/29/2024 9:00 AM SENIOR PATROL AGENT Temperature 36.6 C (97.9 F) 07/29/2024 9:00 AM SENIOR PATROL AGENT Respiratory Rate 20 07/29/2024 9:00 AM SENIOR PATROL AGENT Oxygen Saturation 94% 07/29/2024 9:00 AM SENIOR PATROL AGENT Inhaled Oxygen Concentration - - Weight 77.2 kg (170 lb 3.1 oz) 07/29/2024 3:09 A M SENIOR PATROL AGENT Height 157.5 cm (5' 2) 05/08/2024 11:38 AM SENIOR PATROL AGENT Body Mass Index 31.13 05/08/2024 11:38 AM SENIOR PATROL AGENT Plan of Treatment Health Maintenance Due Date Last Done Comments Hepatitis C Screening 1990 Tobacco Cessation counseling 1990 Pneumococcal vaccine (0-49 years) (1 of 2 - PCV) 2007 HPV Vaccines (1 - 3-dose SCDM series) 2015 COVID-19 Vaccine ( - season) 2024 Depression Screening (Annual PHQ-2) 06/20/2024 Influenza Vaccine (#1) 2025 8, 07/08/2017, 06/03/2016, Additional history exists DTaP,Tdap,and Td Vaccines (5 - Td or Tdap) 11/04/2027 11/03/2017, 11/19/2008, 11/19/2008, Additional history exists Lipid (Cholesterol) Screening 02/09/2029 02/10/2024 Hepatitis B Vaccines Completed 03/14/2009, 03/14/2009, 01/02/2009, Additional history exists Cervical/Vaginal Cancer Screening Discontinued 09/29/2016 Hepatitis B Screening Discontinued 03/07/2019 IPV Vaccines Aged Out No longer eligi ble based on patient's age to complete this topic Insurance [facility] [place] [address] Care Teams Pellet Post Inspector Relationship Specialty Start Date End Date None Reported, Pcp PCP - General Family Medicine 12/17/24
--- OUTSIDE RECORDS SUMMARY | 2025-01-31 14:16 | XMS_ITS | Encounter Summary ---
Author Organization [place] Address [address] [facility] [place] [address] Care Team Providers Care Variety Performer Name Role Phone Lisa Olmedo MD Primary Care Provider [phone] Debbie Ivan RN Unavailable [phone] Encounter Details Date Type Department Care Team (Late st Contact Info) Description 09/14/2012 Office Visit-[facility] Lester Lopez MD [address] [facility] [address] [place] [address] Social History Tobacco Use Types Packs/Day Years Used Date Smoking Tobacco: Never Assessed Comments Unknown Sex and Gender Information Value Date Recorded Sex Assigned at Not on file Legal Sex Female 5:19 AM JET DYEING MACHINE 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 Her dose of Inderal is 40 mgthree times a day. She is working about 30 [...] on an as needed basis. She knows not to get on these medicines. If you have questions about this, please contact me. Sincerely, Lester Lopez MD Department of Neurology [facility] [id number] Electronically signed by:Lester Lopez M.D. Sep 14 2012 5:08PM JET DYEING MACHINE OPERATOR Author documented in this encounter Plan of Treatment Not on file documented as of this encounter Visit Diagnoses Not on filedocumented in this encounter Care Teams Variety Performer Relationship Specialty Start Date End Date Lisa Olmedo MD PCP - General 02/02/13 KarDebbie alexandra RN [facility] 11/29/17 12/26/17 documented as of this encounter
--- OUTSIDE RECORDS SUMMARY | 2025-01-31 14:16 | XMS_ITS | Encounter Summary ---
Author Organization [place] Address [address] [facility] [place] [address] Care Team Providers Care Facilities Maintenance Supervisor Name Role Phone Lisa Olmedo MD Primary Care Provider [phone] Debbie Ivan RN Unavailable [phone] Encounter Details Date Type Department Care Team (Late st Contact Info) Description 04/13/2012 Office Visit-[facility] Lester Lopez MD [address] [facility] [address] [place] [address] Social History Tobacco Use Types Packs/Day Years Used Date Smoking Tobacco: Never Assessed Comments Unknown Sex and Gender Information Value Date Recorded Sex Assigned at Not on file Legal Sex Female 5:19 AM STUDENT ASSISTANT Gender Identity Not on file Sexual Orientation Not on file documented as of this encounter Progress Notes * Lesetr Lopez MD - 04/13/2012 11:30 AM CDT Estimator Printing Plate Making: Lester Lopez Status: Final - Signature Encounter: 2012-04-13 11:30:00.000 Type: Neurology Letter [facility] [address] [facility] [address] [place] [address] April 13, 2012 Lisa Olmedo MD [address] [address] RE: Florecita Serrato : 1990 JULIO: 04/13/2012 [...] or injury that occurred 3-4 months ago toprecipitate the headache. The headaches just seem to begin. They are frequently there on awaking inthe morning. They will simon as the day [...] and debilitating. She has photophobia, phonophobia, nausea, andvomiting with them. She will go to the emergency room for treatment. Imitrex sometimes is helpful for the migraine. She has been using Imitrex to treat her tension headaches to good effect. However, t here are limitations on how much she can use. She has tried Tylenol and ibuprofen without benefit, but Flexeril with Tylenol or ibuprofen is often helpful. She has been on nortriptyline and amitriptyline in the past for migraine without benefit. Her neurologic review of systems is otherwise unremark able. Her past medical history is significant for opiate addiction. She is on Subutex for the last two and a half years. She does note that a side effect of Subutex is headache. She also is on oxybutynin. She smokes. Social history is that she is unmarried. She has two children. She is currently on leavefrom her work. Family history is positive for migraine in her parents. On exam, the patient is cooperative and in no distress. Blood pressure 125/75. There are no carotidbruits. Auscultation of the heart shows S1, S2 [...] shows no pronator drift, normal finger tapping, [id number], and [id number]-[id number]. She has good strength in the arms, [...] and then abates, and then will recur later in the day. Her exam on this point is normal. A differential diagnosis includes intracranial process causing the headache. I am going to obtain an MRI scan of the brain to make sure there is no structural lesion. For treatment, I am starting her on propranolol, building up to 40 mg three times aday. Side effects were reviewed. She has no plans on getting again. If she tolerates the propranolol, this could be given as a long-acting. I will see her in follow-up in a month. Sincerely, Lester Lopez MD Department of Neurology [facility] [id number] Electronically signed by:Lester Lopez M.D. Apr 14 2012 7:23AM STUDENT ASSISTANT Author documented in this encounter Plan of Treatment Not on file documented as of this encounter Visit Diagnoses Not on filedocumented in this encounter Care Teams Facilities Maintenance Supervisor Relationship Specialty Start Date End Date Lisa Olmedo MD PCP - General 02/02/13 Debbie Ivan RN [facility]ing [facility] 11/29/17 12/26/17 documented as of this encounter
--- OUTSIDE RECORDS SUMMARY | 2025-01-31 14:16 | XMS_ITS | Clinical Summary ---
Author Organization [place] Address [address] [facility] [place] [address] Care Team Providers Care Vinyl Dipper Name Role Phone Lisa Olmedo MD Primary Care Provider [phone] Allergies Active Allergy Reactions Criticality Noted Date Comments Sulfa Antibiotics Hives 08/02/2020 Medications Buprenorphine HCl-Naloxone HCl (SUBOXONE SL) Place 3 mg under the tongue Active traZODone (DESYREL) 150 MG tablet Take 150 mg by mouth At Bedtime Active cetirizine (ZYRTEC) 10 MG tabletIndication s:Rash and nonspecific skin eruption Take 1 tablet (10 mg) by mouth daily 14 tablet 02/09/2023 Active Active Problems Problem Noted Date Diagnosed Date Hx of major depression 08/02/2020 Vitamin D deficiency 12/15/2017 Prolonged antepartum rupture of membranes 2017 Overview (08/02/2020): x > 24 hours upon presention Murmur, cardiac 11/03/2017 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 Yes PPTL Permit signed: Date: Scanned date: PLAN OF CARE: 12/01/17 per DW PLAN: - Return in 2, 3, 4 weeks for OB checks. - Maternal eCHO - No BPP testing indicated - Script for Valtrex 500 mg bid given for prophylaxis. - Lab testing: GBS at 36 weeks. 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 Constipation 07/12/2011 Tobacco use in 03/29/2011 Polysubstance abuse 03/29/2011 Overview (08/02/2020): on Subutex for prior heroin/narcotic addiction (03/2011) Methamphetamine abuse 03/29/2011 Social History Tobacco Use Types Packs/Day Years Used Date Smoking Tobacco: Every Day Cigarettes Smokeless Tobacco: Never Tobacco Cessation:Ready to Q uit: Not Asked; Counseling Given: Not Answered Adolescent Education Answer Date Record ed Getting School Help Needed Not on file 03/11 Comments No Sex and Gender Information Value Date Recorded Sex Assigned at Not on file Legal Sex Female 5:19 AM BIRD CAGE ASSEMBLER Gender Identity Not on file Sexual Orientation Not on file Last Filed Vital Signs Vital Sign Reading Time Taken Comments Blood Pressure 121/75 02/09/2023 4:36 PM CDT Pulse 108 02/09/2023 4:36 PM CDT Temperature 36.9 C (98.4 F) 02/09/2023 4:36 PM CDT Respiratory Rate 18 08/02/2020 7:39 PM BIRD CAGE ASSEMBLER Oxygen Saturation 99% 02/09/2023 4:36 PM CDT Inhaled Oxygen Concentration - - Weight 53.1 kg (117 lb) 02/09/2023 4:36 PM CDT Height 157.5 cm (5' 2) 08/02/2020 7:39 PM BIRD CAGE ASSEMBLER Body Mass Index 21.4 08/02/2020 7:39 PM BIRD CAGE ASSEMBLER Plan of Treatment Health Maintenance Due Date Last Done Comments ANNUAL REVIEW OF HM ORDERS 1990 YEARLY PREVENTIVE VISIT 1991 HIV SCREENING 2003 PNEUMOCOCCAL VACCINE: PEDIATRICS (0 to 5 YEARS) AND AT-RISK PATIENTS (6 to 49 YEARS) (1 of 2 - PCV) 2007 PAP 2009 DIABETES SCREENING 08/02/2023 08/02/2020 COVID-19 VACCINE (1 - season) 2024 PHQ-2 (once per calendar year) 2024 INFLUENZA VACCINE (#1) 2025 8, 07/08/2017, 06/03/2016, Additional history exists DTAP/TDAP/TD VACCINE (4 - Td or Tdap) 11/04/2027 11/03/2017, 11/19/2008, 11/19/2008, Additional history exists ADVANCE CARE PLANNING 05/23/2028 05/23/2023 ZOSTER VACCINE (1 of 2) 2038 HEPATITIS B VACCINE Completed 03/14/2009, 01/02/2009, 11/19/2008 HEPATITIS C SCREENING Completed 02/09/2023 HPV VACCINE (No Doses Required) Completed MENINGITIS VACCINE Aged Out No longer eligible based on patient's age to complete this topic Procedures Procedure Name Priority Date/Time Associated Diagnosis Comments HEPATITIS C SCREEN REFLEX TO HCV RNA QUANT AND GENOTYPE Routine 02/09/2023 5:04 PM CDT IV drug abuse (H) BASIC METABOLIC PANEL STAT 08/02/2020 8:17 PM BIRD CAGE ASSEMBLER from Last 3 Months or Most Recently Relevant to Health Maintenance Results * Hepatitis C Screen Reflex to HCV RNA Quant and Genotype (02/09/2023 5:04 PM CDT) Hepatitis C Antibody Nonreactive Nonreactive 02/10/2023 1:57 PM CDT SPECIALTY CORE/PROT/EN DO Blood STRUCTURE OF RIGHT HAND / Unknown Venipuncture / Unknown 02/09/2023 5:04 PM CDT 02/09/2023 5:04 PM CDT Narrative SPECIALTY CORE/PROT/ENDO - 02/10/2023 1:57 PM CDT Assay performance characteristics have not been established for newborns, infants, and children. us Roseann Muller PA-C LAB - BLOOD ORDERABLES Final Result SPECIALTY CORE/PROT/ENDO Specialty Core/Prot/Endo [address] [facility], Room [address] [phone] * (ABNORMAL) Basic metabolic panel (08/02/2020 8:17 PM BIRD CAGE ASSEMBLER) Sodium 137 133 - 144 mmol/L 08/02/2020 8:43 PM [facility] Potassium 4.1 3.4 - 5.3 mmol/L 08/02/2020 8:43 PM [facility] Chloride 100 94 - 109 mmol/L 08/02/2020 8:43 PM [facility] Carbon Dioxide 35(H) 20 - 32 mmol/L 08/02/2020 8:49 PM [facility] Anion Gap 2(L) 3 - 14 mmol/L 08/02/2020 8:49 PM [facility] Glucose 102(H) 70 - 99 mg/dL 08/02/2020 8:49 PM [facility] Urea Nitrogen 14 7 - 30 mg/dL 08/02/2020 8:49 PM [facility] Creatinine 0.62 0.52 - 1.04 mg/dL 08/02/2020 8:49 PM [facility] GFR Estimate >90 >60 mL/min/{1. 73_m2} 08/02/2020 8:49 PM [facility] Comment: Non GFR Calc Starting 06/06/2018, serum creatinine based estimated GFR (eGFR) will be calculated using the Chronic Kidney Disease Epidemiology Collaboration (CKD-EPI) equation. GFR Estimate If Black >90 >60 mL/min/{1. 73_m2} 08/02/2020 8:49 PM BIRD CAGE ASSEMBLER [facility] Comment: GFR Calc Starting 06/06/2018, serum creatinine based estimated GFR (eGFR) will be calculated using the Chronic Kidney Disease Epidemiology Collaboration (CKD-EPI) equation. Calcium 9.2 8.5 - 10.1 mg/dL 08/02/2020 8:49 PM BIRD CAGE ASSEMBLER [facility] Blood specimen (specimen) 08/02/2020 8:17 PM BIRD CAGE ASSEMBLER 08/02/2020 8:32 PM BIRD CAGE ASSEMBLER us Peter Talbert MD LAB - BLOOD ORDERABLES Fin al Result [facility] [address] [place] [address] from Last 3 Months or Most Recently Relevant to Health Maintenance Care Teams Vinyl Dipper Relationship Specialty Start Date End Date Lisa Olmedo MD PCP - General 02/02/13
--- OUTSIDE RECORDS SUMMARY | 2025-01-31 14:16 | XMS_ITS | Clinical Summary ---
Author Organization [facility] Address [address] [place] [address] Care Team Providers Care Juvenile Corrections Officer Name Role Phone Matt Champagne MD Unavailable [place] Unavailable Unavailable Sunshine Hanson MD Unavailable [phone] Debi Andres DO Primary Care Provider [phone] Allergies Active Allergy Reactions Criticality Noted Date Comments Sulfa (Sulfonamide Antibiotics) Hives 12/2006 Medications docusate 100 mg capsuleIndications :Chronic constipation Take 1 Capsule (100 mg) by mouth 2 times daily if needed for Constipation. 100 Capsule 3 09/22/19 25 Active atorvastatin 80 mg tabletIndications: Hyperlipidemia, unspecified hyperlipidemia type Take 1 Tablet (80 mg) by mouth at bedtime. 90 Tablet 10/05/19 25 Active cetirizine 10 mg tabletIndications: Hives Take 1 Tablet (10 mg) by mouth once daily. 100 Tablet 11/01/19 25 Active fluticasone (50 mcg per actuation) nasal solution (FLONASE)Indicatio ns:Middle ear effusion, right Inhale 2 Sprays in both nostrils once daily. 16 g 2 11/01/19 25 Active buprenorphine-nalo xone (Suboxone) 2-0.5 mg sublingual filmIndications:Me thamphetamine use disorder, severe, in early remission (HC) Place 1 Film under the tongue once daily. Place film under the tongue until completely dissolved. Do not chew or swallow film. 5 Each 02/04/20 25 Active buprenorphine-nalo xone (Suboxone) 2-0.5 mg sublingual filmIndications:Me thamphetamine use disorder, severe, in early remission (HC) Place 1 Film under the tongue once daily. Place film under the tongue until completely dissolved. Do not chew or swallow film. 30 Each 12/12/19 25 025 Discontin ued(Reord er (E-cancel not sent)) buprenorphine-nalo xone (Suboxone) 2-0.5 mg sublingual filmIndications:Me thamphetamine use disorder, severe, in early remission (HC) Place 1 Film under the tongue once daily. Place film under the tongue until completely dissolved. Do not chew or swallow film. 30 Each 01/03/20 25 025 Discontin ued(Reord er (E-cancel not sent)) Active Problems Patient Care Coordination No te Formatting of this note migh t be different from the original. There is a resolved Delivery Plan of Care note under Case Management tab dated 12/26/17 Vanessa Mayo, RN Maternal Validation Specialist [facility] 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 Methamphetamine use disorder, severe, in early r emission 03/29/2011 History of substance use 03/29/2011 Overview (03/29/2011): on Subutex for prior heroin/narcotic addiction (03/2011) Hx of major depression Resolved Problems Problem Noted Date Diagnosed Date Resolved Date Accidental overdose of heroin 02/18/2023 05/11/2023 Prolonged antepartum rupture of membranes, term 12/15/2017 05/11/2023 Overview (12/15/2017): x > 24 hours upon presention [facility] Supervision of high-risk 11/01/2017 05/11/2023 Overview (12/14/2017): MPP OB PATIENT NEXT VISIT ALERTS: 12/15: [...] Phone# LV [place] SHARLENE signed for [facility]: CARE COORDINATION: Vanessa Mayo RN [facility] MOMS Maternal Care Coordination [phone] Chart review completed 12/14/2017 OPERATIONS CHIEF: GENETICS: 11/03/17 Missy Lowery - Amnio CONSULTS: [...] given: 11/03/17 ANXIETY/DEPRESSION SCREEN: Initial screen: Date 5/17/18 PHQ-9 score: 7 BECKIE-7 score: 5 Previous [...] PERTINENT LABS: DELIVERY PLANS: Preferred delivery location: [place] PPTL: Yes No Is Medical assistance? Yes PPTL Permit signed: Date: Scanned date: PLAN OF CARE: 12/01/17 per PLAN: - Return in 2, 3, 4 weeks for OB checks. - Maternal eCHO - No BPP testing indicated - Script for Valtrex 500 mg bid given for prophylaxis. - Lab testing: GBS at 36 weeks. 10/31/17 LF -Arrange genetic amniocentesis ABBY at [place] site --rule-out OI V -Coordinate transfer of care--patient wishes to deliver at [facility] (even if OI ruled out) Gallstones 06/24/2016 12/15/2017 Unspecified constipation 07/12/2011 Spontaneous vaginal delivery 2011 07/12/2011 Shoulder dystocia 2011 07/12/2011 Hypokalemia 03/30/2011 2011 Hypomagnesemia 03/30/2011 2011 History Genital herpes complicating 03/29/20 11 07/12/2011 Tobacco use in 03/29/2011 Anemia complicating 03/29/2011 07/12/2011 Nausea and vomiting in 03/29/2011 2011 Constipation in 03/29/2011 Poor weight gain of 03/29/2011 07/12/2011 Supervision of other high-ri sk (V23.89) 12/29/2010 07/12/2011 Supervision of other normal 09/08/2010 11/17/2010 Genital herpes, unspecified 08/21/2010 03/29/2011 Spontaneous Vaginal Delivery at 37 1/7 weeks 9 11/17/2010 ROM (ruptured membranes) 10/09/2008 Other known or suspected fet al abnormality, not elsewhere classified, affecting management of mother, unspecified as to episode of care 08/31/2008 11/17/2010 Overview (08/31/2008): Long bone shortening Supervision of normal first 03/18/2008 10/10/2008 Tobacco use disorder 08/08/2007 011 Migraine, unspecified, witho ut mention of intractable migraine without mention of status migrainosus 08/24/2006 03/29/2011 Drug abuse 03/29/2011 Overview (10/09/2008): h/o treatment, heroin,pot, vicodin, percocet Encounters Date Type Department Care Team Description 01/02/2025 10:50 AM CDT Office Visit [facility] [address] [place] [address] Debi Andres, DO Medication Management (suboxone; has been taking 3mg instead of 2mg that was prescribed, is now out of medication for 4 days. ) 01/02/2025 Travel 12/11/2024 2:00 PM CDT Office Visit [facility] [address] [place] [address] Debi Andres, DO Medication Management (suboxone); Urinary Problem (possible bladder infection or bacterial, has noticed vaginal smell has changed over the last 3 weeks) 12/11/2024 Travel 10/31/2024 8:20 AM CDT Office Visit [facility] [address] [place] [address] Debi Andres, DO Medication Management (Suboxone 4-1 mg films) 10/31/2024 Travel from Last 3 Months Immunizations Immunization Administration Dates Next Due DTaP 11/19/2008,03/08/2005 Hepatitis B (Adult) 03/14/2009,01/02/2009,2008 Hepatitis B, Unspecified 03/14/2009,01/02/2009,0 11/19/2008 Influenza Virus, Unspecified 03/14/2009,04/23/20 08 Influenza, IIV3 (Age >=3 years) 03/22/2012,04/02,03/14/2009,04/23/2008 Influenza, IIV4 03/15/2018,07/08/2017,06/03/2016 ,04/24/2015 Tdap 11/03/2017,11/19/2008 Family History Medical History Relation Name Comments Alcohol/Drug Father Heart Disease Father [place], age 49, al taylor and well Hyperlipidemia Father Hypertension Father Other Father migraine headac hes Heart Disease Maternal Grandfather Hypothyroidism Maternal Grandmother Hypothyroidism Mother Other Mother migraine headac hes Anesthesia Problem Neg. No Known Problems Paternal Grandfather No Known Problems Paternal Grandmother Hypothyroidism Sister low bone dens ity levels Other Son OI Relation Name Status Comments Father Alive Maternal Grandfather Maternal Grandmother Alive Mother Alive Neg. Paternal Grandfather (Age unk) L axel Cancer Paternal Grandmother (Age 68) Ritchie grajeda's osteoparosis, arthritis Sister Alive Son Social History Tobacco Use Types Packs/Day Years Used Date Smoking Tobacco: Former Cigarettes 0.5 9.2 S tarted: 07/06/2016 Smokeless Tobacco: Never Tobacco Cessation:Counseling Given: Not Answered Alcohol Use Standard Drinks/Week Comments Not Currently 0 (1 standard drink = 0.6 oz pur e alcohol) occassional PHQ-2 Answer Date Recorded PHQ-2 TOTAL SCORE 0 02/10/2024 Social Connections Answer Date Recorded Do you often feel lonely or isolated from those around you? 0 02/10/2024 Financial Resource Strain Answer Date R ecorded Difficulty of Paying Living Expenses 3 02/10/2024 Difficulty of Paying Living Expenses Not on file 02/10/2024 Food Insecurity Answer Date Recorded Do you worry your food will run out before you are able to buy more? 1 02/10/2024 Transportation Needs Answer Date Record ed Does lack of transportation keep you from medica l appointments? 1 02/10/2024 Does lack of transportation keep you from work, meetings or getting things that you need? 1 02/10/2024 Housing Stability Answer Date Recorded What is your housing situation today? 1 02/10/2024 Interpersonal Safety Answer Date Record ed Are you being hit, kicked, p ushed or yelled at (see row info)? No 11/29/2023 Interpersonal Safety Abuse 12 - 18 Not on file 11/29/2023 Interpersonal Safety Ambulatory Vulnerability No t on file 11/29/2023 Utilities Answer Date Recorded Do you have trouble paying f or utilities (for example, heat, electricity, water, phone)? 1 02/10/2024 Comments No Sex and Gender Information Value Date Recorded Sex Assigned at Not on file Legal Sex Female 5:23 AM J2EE CONSULTANT Gender Identity Not on file Sexual Orientation Not on file Occupation Industry Job Start Date Job End Date unemployed Not on file Not on file Not on file Obstetrics History Para Term AB IAB SAB Ectopic Multiple Livin g Live Births 4 3 2 1 1 0 1 0 0 3 3 Date Outcome GA Total Labor Labor/2nd/3rd Weight Sex Type Anes PTL Roya A1 A5 Name Clin 2008 Term 37w 1d 8h 00m/ 2.78 kg (6 lb 2 oz) M Vag Epidur al N Livin g 8 9 [facility] us Delivery Location:[facility] Comments:born at [facility] due to abnormal bones on ultrasound 2010 Term 38w 1d 2.94 kg (6 lb 7.7 oz) F Vag Livin g CONDO N LAWSJonathon N,BG Delivery Location:[facility] 2016 SAB 10w 0d SPONTA NEOUS 2017 36w 6d 2.52 kg (5 lb 8.9 oz) F Vag Epidur al N Livin g 9 9 CONDO N LAWSO N,BG PA DAQUAN nick Complications:None Delivery Location:[facility] ([facility] [id number] [place]) Last Filed Vital Signs Vital Sign Reading Time Taken Comments Blood Pressure 122/76 01/02/2025 10:47 AM CDT Pulse 98 01/02/2025 10:47 AM CDT Temperature 36.9 C (98.5 F) 11/29/2023 4:27 AM CDT Respiratory Rate 16 11/29/2023 4:27 AM CDT Oxygen Saturation 97% 06/29/2024 1:31 PM J2EE CONSULTANT Inhaled Oxygen Concentration - - Weight 76.7 kg (169 lb) 12/11/2024 2:03 PM CDT Height 158.5 cm (5' 2.4) 06/29/2024 1:31 PM J2EE CONSULTANT Body Mass Index 30.52 06/29/2024 1:31 PM J2EE CONSULTANT Plan of Treatment Upcoming Encounters Date Type Department Care Team (Late st Contact Info) Description 02/07/2025 9:35 AM CDT Office Visit [facility] [address] [place] [address] Debi Andres, [address] [place] [address] Health Maintenance Due Date Last Done Comments COVID-19 vaccine series ( season) 2024 Depression screening for age 12+ 02/09/2025 02/10/2024, 05/20/2020, 05/19/2020, Additional history exists Influenza Vaccine (#1) 2025 8, 07/08/2017, 06/03/2016, Additional history exists BMI (ht and wt on same day) for age 18+ 06/29/2025 06/29/2024, 02/10/2024, 11/16/2023, Additional history exists Tetanus booster 11/04/2027 11/03/2017, 11/19/2008 Hepatitis B series for 19+ Completed 03/14, 03/14/2009, 01/02/2009, Additional history exists Pap test for age 21-65 Discontinued 7, 01/03/2014, 06/15/2011, Additional history exists HIV for age 15-65 Completed 05/11/2023, , 01/03/2014, Additional history exists Hepatitis C screening for age 18-79 Completed 05/11/2023, 03/07/2019 Pneumococcal series for age 6-49 Aged Out No longer eligible based on patient's age to complete this topic Procedures Procedure Name Priority Date/Time Associated Diagnosis Comments COMPLIANCE DRUG ANALYSIS Routine 01/02/2025 11:15 AM CDT Therapeutic drug monitoring GC CHLAMYDIA TRACH PROBE Routine 12/11/2024 2:20 PM CDT Vaginal odor TRICHOMONAS, KATHERINE, AND BACTERIAL VAGINOSIS BY KAYODE Routine 12/11/2024 2:20 PM CDT Vaginal odor ANTI HIV 1/2 Routine 05/11/2023 9:55 AM J2EE CONSULTANT Routine screening for STI (sexually transmitted infection) ANTI HCV Routine 05/11/2023 9:55 AM J2EE CONSULTANT Routine screening for STI (sexually transmitted infection) SOFTWARE DESIGNER THIN PREP PAP SCREEN IMAGED Routine 09/29/2016 12:00 PM CDT from Last 3 Months or Most Recently Relevant to Health Maintenance Results * (ABNORMAL) Compliance Drug Analysis [[id number]] (01/02/2025 11:15 AM CDT) 6-MONOACETYL MORPHINE NEG NEG ng/mL 01/07/2025 10:[address] [facility] AMPHETAMINE URINE NEG <=500 ng/mL 01/07/2025 10:[address] [facility] BARBITURATE URINE NEG <=200 ng/mL 01/07/2025 10:[address] [facility] BENZODIAZEPINE URINE NEG <=100 ng/mL 01/07/2025 10:[address] [facility] BUPRENORPHRINE URINE POS(A) <=5 ng/mL 12/19 10:[address] [facility] COCAINE METAB URINE NEG <=300 ng/mL 01/07/2025 10:[address] [facility] ETHYLGLUCURONIDE URINE NEG <=250 ng/mL 01/07/2025 10:[address] [facility] FENTANYL URINE NEG <=5 ng/mL 01/07/2025 10:[address] [facility] METHADONE URINE NEG <=300 ng/mL 01/07/2025 10:[address] [facility] OPIATES URINE NEG <=300 ng/mL 01/07/2025 10:[address] [facility] OXYCODONE URINE NEG <=100 ng/mL 01/07/2025 10:[address] [facility] PROPOXYPHENE URINE NEG <=300 ng/mL 01/07/2025 10:[address] [facility] THC 50 URINE NEG <=50 ng/mL 01/07/2025 10:[address] [facility] TRAMADOL NEG <=200 ng/mL 01/07/2025 10:[address] [facility] PH URINE 6.0 5.0 - 7.0 01/07/2025 10:[address] [facility] CREAT UR 223 >=20 mg/dL 01/07/2025 10:[address] [facility] MASS SPECTROMETRY URINE See Below 01/07/2025 10:[address] [facility] Comment:Norbuprenorphine pre sent. Urine URINE SPECIMEN / Unknown Non-Blood / Unknown 01/02/2025 11:15 AM CDT 01/02/2025 11:22 AM CDT [facility] - 01/07/2025 10:48 AM CDT Current Outpatient Medications: atorvastatin 80 mg tablet, Take 1 Tablet (80 mg) by mouth at bedtime. buprenorphine-naloxone (Suboxone) 2-0.5 mg sublingual film, Place 1 Film under the tongue once daily. Place film under the tongue until completely dissolved. Do not chew or swallow film. cetirizine 10 mg tablet, Take 1 Tablet (10 mg) by mouth once daily. docusate 100 mg capsule, Take 1 Capsule (100 mg) by mouth 2 times daily if needed for Constipation. fluticasone (50 mcg per actuation) nasal solution (FLONASE), Inhale 2 Sprays in both nostrils once daily. No current facility-administered medications for this visit. As of 01/02/2025 Release to patient->Immediate us Debi Andres DO URINE Final Resu lt [facility] [address] [place] [address], [place] * TRICHOMONAS, KATHERINE, AND BACTERIAL VAGINOSIS BY KAYODE (12/11/2024 2:20 PM CDT) KATHERINE SPECIES Negative Negative 3:23 AM CDT [facility] KATHERINE GLABRATA Negative Negative 12/12/2024 3:23 AM CDT [facility] TRICHOMONAS VVA Negative Negative 3:23 AM CDT [facility] BACTERIAL VAGINOSIS Negative Negative 12/12/2024 3:23 AM CDT [facility] Other VAGINAL SWAB / Unknown Non-Blood / Unknown 12/11/2024 2:20 PM CDT 12/11/2024 2:52 PM CDT Debi Andres MICROBIOLOGY Final Resu lt Performing Organization Address City/[facility]/ZIP Co de Phone Number [facility] [address], [place] [address], [place] * GC & CHLAMYDIA DNA PCR [[id number]] (12/11/2024 2:20 PM CDT) CHLAMYDIA PROBE Negative 3:55 AM CDT [facility] N GONORRHOEAE PROBE Negative 12/12/2024 3:55 AM CDT [facility] Other VAGINAL SWAB / Unknown Non-Blood / Unknown 12/11/2024 2:20 PM CDT 12/11/2024 2:52 PM CDT Debi Andres DO MICROBIOLOGY Final Resu lt [facility] [address] [place] [address], [place] * ANTI HCV (05/11/2023 9:55 AM J2EE CONSULTANT) HEPATITIS C ANTIBODY Non-Reacti ve Non-React taylor 05/11/2023 10:25 PM J2EE CONSULTANT [facility] Comment:Please note, per www .CDC.gov: If a patient is known to be at high risk of HCV infection, or is symptomatic, and the physician's suspicion of HCV infection is high, HCV RNA testing is often employed and is of diagnostic value, even after an initial negative anti-HCV test result. Blood BLOOD SPECIMEN / Unknown Butterfly / Unknown 05/11/2023 9:55 AM J2EE CONSULTANT 05/11/2023 10:00 AM J2EE CONSULTANT Darlene Vigil MD SEND OUTS Final Re sult Performing Organization Address [facility] Co de Phone Number [facility] [address] [place] [address], [place] * ANTI HIV 1/2 (05/11/2023 9:55 AM J2EE CONSULTANT) HIV-1/HIV-2 SCREEN Non-Reacti ve Non-Reacti ve 05/11/2023 10:16 PM J2EE CONSULTANT [facility] Comment:HIV-1 p24 and HIV-1/ HIV-2 Ab Not Detected. Blood BLOOD SPECIMEN / Unknown Butterfly / Unknown 05/11/2023 9:55 AM J2EE CONSULTANT 05/11/2023 10:00 AM J2EE CONSULTANT Darlene Vigil MD SEND OUTS Final Re sult Performing Organization Address [facility] Co de Phone Number [facility] [address] [place] [address], [place] * SOFTWARE DESIGNER THIN PREP PAP SCREEN IMAGED (09/29/2016 12:00 PM CDT) Case Report Gynecologic Cytology Report Case: [id number] Authorizing Provider: Archana Palma NP Collected: 09/29/2016 1200 First Screen: Jailene Oseguera Received: 09/30/2016 1852 Specimen: SOFTWARE DESIGNER ThinPrep Vial Screening, Cervical/Vaginal 10/09/2016 11:26 AM CDT [employer] [facility] INTERPRETATION/ RESULT NEGATIVE FOR INTRAEPITHELIAL LESION OR MALIGNANCY (NIL) (none) 10/09/2016 11:26 AM CDT [facility] at 1126 CDT SPECIMEN ADEQUACY Satisfactory for evaluation Endocervical component present 10/09/2016 11:26 AM CDT [facility] [employer] [facility] HPV REQUEST HPV if ASCUS 10/09/2016 11:26 AM CDT [facility] Date of LMP 09/21/2016 10/09/2016 11:26 AM CDT [facility] Last Pap Date 10/09/2016 11:26 AM CDT [facility] Comment:2 Years Ago Last Pap Result 7 11:26 AM CDT [facility] Comment:not sure Abnormal Pap or [place] Bx in last 5 years No 10/09/2016 11:26 AM CDT [facility] [employer] [facility] [place] Bx Done Today No 10/09/2016 11:26 AM CDT [facility] Automated Review Successful 10/09/2016 11:26 AM CDT [facility] Comment:Specimen processed s uccessfully by automated synchronous motor assembler device, [employer] System, [employer] Note The pap test is a screening technique, not a diagnostic procedure. It is used primarily to screen for squamous cancers and precursor lesions. Published studies have shown that it is subject to both false negative and false positive results. The pap test should not be used as the sole means to diagnose or exclude pre-malignant and malignant lesions. Interpreted at [facility] ([facility], [facility], [facility], [facility], [facility], [facility], [facility]) 10/09/2016 11:26 AM T [facility] [employer] [facility] Other (Cervical/Vagina l) 09/29/2016 12:00 PM CDT 09/30/2016 6:52 PM CDT us Archana Palma NP PATHOLOGY/CYTOLOGY Final Re sult [facility] [address] [place] [address], [place] from Last 3 Months or Most Recently Relevant to Health Maintenance Insurance * Guarantor: Floercita Serrato Account Type Relation to Patient Date of Phone Billing Address Personal/Family Self 1990 [phone] [place] [address] [facility] * Guarantor: Florecita Serrato Kayleigh Account Type Relation to Patient Date of Phone Billing Address Personal/Family Self 1990 [phone] [place] [address] Advance Directives * Full Code (Latest Code Status on File) Date Activated Date Inactivated Comments 12/15/2017 2:48 PM 12/18/2017 2:58 PM * Full Code Date Activated Date Inactivated Comments 05/02/2011 4:41 AM 05/04/2011 4:08 PM * Full Code Date Activated Date Inactivated Comments 04/19/2011 5:40 PM 04/19/2011 10:11 PM * Full Code Date Activated Date Inactivated Comments 04/14/2011 7:46 PM 04/15/2011 1:04 AM * Full Code Date Activated Date Inactivated Comments 04/04/2011 2:19 PM 04/04/2011 7:13 PM Care Teams Juvenile Corrections Officer Relationship Specialty Start Date End Date Debi AndresDO [address] [place] [address] PCP - General Family Practice 02/10/24 Matt Champagne MD Perinatology MANUFACTURING RECRUITER Perinatology 03/19/11 [place] Perinatology MANUFACTURING RECRUITER Perinatology 04/30/11 Sunshine Hanson MD NET C DEVELOPER Obstetrics and Gynecology 08/30/11
--- OUTSIDE RECORDS SUMMARY | 2025-01-31 14:16 | XMS_ITS | Clinical Summary ---
Author Organization [facility] Address [address] [address] Phone Care Team Providers Care Auto Mechanic Apprentice Name Role Phone Choice, No Pcp-Patient Primary Care Provider Sharon vailable Allergies Active Allergy Reactions Criticality Noted Date Comments Sulfa Drugs Hives High 05/16/2023 Medications buprenorphine-n aloxone (Suboxone) 8-[address] 1 Film under the tongue one time a day. Active cyclobenzaprine (Flexeril) 10 MG tablet Take 1 Tablet by mouth at bedtime. 10 Tablet 05/16/2023 Active methylPREDNISol one (Medrol Ken) 4 MG tablet therapy pack Follow package directions. 21 Tablet 05/16/2023 Active Social History Tobacco Use Types Packs/Day Years Used Date Smoking Tobacco: Never Assessed EH IP Custom IPV Answer Date Recorded Do you feel UNSAFE in any of your personal relationships with your family members or any other acquaintances? No 2022 Comments No Sex and Gender Information Value Date Recorded Sex Assigned at Not on file Legal Sex Female 8:21 AM CDT Gender Identity Not on file Sexual Orientation Not on file Obstetrics History Last Filed Vital Signs Vital Sign Reading Time Taken Comments Blood Pressure 107/73 05/16/2023 12:45 AM COATER Pulse 94 05/16/2023 12:45 AM COATER Temperature 36.7 C (98.1 F) 05/16/2023 12:03 AM COATER Respiratory Rate 16 05/16/2023 12:03 AM COATER Oxygen Saturation 98% 05/16/2023 12:22 AM COATER Inhaled Oxygen Concentration - - Weight 56.7 kg (125 lb) 05/16/2023 12:03 AM COATER Height 157.5 cm (5' 2) 05/16/2023 12:03 AM COATER Body Mass Index 22.86 05/16/2023 12:03 AM COATER Plan of Treatment Health Maintenance Due Date Last Done Comments Cervical Cancer Screening 1988 Last pap w/ HPV Testing 1988 Last pap w/o HPV Testing 1988 Hepatitis B Vaccine (Standin g Order) (1 of 3 - 19+ 3-dose series) 2007 PERTUSSIS (Standing Order) 2007 TETANUS (Standing Order) 2007 HPV Vaccine (Standing Order) Aged Out No longer eligible based on patient's age to complete this topic Pneumococcal/PCV20 Vaccine: Pediatrics (2-5 yrs) and At-Risk Patients (6-49 yrs) (Standing Order) Aged Out No longer eligible b ased on patient's age to complete this topic Care Teams Auto Mechanic Apprentice Relationship Specialty Start Date End Date Choice, No Pcp-Patient PCP - General 05/15/23
[2025-01-31 14:22] VITALS: BP 136/85; PULSE 112; RESP 20; TEMP 36.8; O2SAT 98
--- NOTE | 2025-01-31 15:31 | ED.GENADULT ---
HPI - General Adult General Date Seen: 01/31/25 Chief complaint: Unspecified Complaint, Adult Stated complaint: ran out of suboxone Time Seen by Provider: 01/31/25 15:31 History of Present Illness HPI narrative: 34-year-old female with history of opiate use disorder, currently managed Suboxone. She presents to ER today with concern for Suboxone withdrawal. She has been out of her Suboxone for 5 days and has not been able to get it refilled because her insurance will not refill until February 03, 3 days from now. No her symptoms of withdrawal including sweatiness, goose bumps, nausea and vomiting, diarrhea, anxiety and insomnia. According to records from [facility] she is normally on buprenorphine/naloxone 2 mg/0.5 mg sublingually once daily. Patient confirms that she has been on Suboxone for about 7 months. She had previously been on a dose of 4 mg/1 mg daily. Beginning last month her doctor wanted to start weaning down to 2 and 0.5 mg. Last month she did run out of her Suboxone a little bit early because she was taking sometimes 2 films per day (total dose of 4 mg). She was up front with her doctor about that and they did give her refill last month. This month she ran out early again because she is taking more than prescribed but her doctor will not give her a refill until Tuesday. She came to the ER because she is having withdrawal symptoms. She started have cravings and does not want to relapse. Related Data Home Medications ?Medication ?Instructions ?Recorded ?Confirmed atorvastatin 40 mg tablet 40 mg PO QPM 07/03/24 01/31/25 Allergies Allergy/AdvReac Type Severity Reaction Status Date / Time Sulfa (Sulfonamide Allergy Mild Hives Verified 01/31/25 14:21 Antibiotics) [facility] Medical History Polysubstance abuse ?F19.10 - Other psychoactive substance abuse, uncomplicated (ICD-10) Iron deficiency ?E61.1 - Iron deficiency (ICD-10) Methamphetamine abuse ?F15.10 - Other stimulant abuse, uncomplicated (ICD-10) Vitamin D deficiency ?E55.9 - Vitamin D deficiency, unspecified (ICD-10) Miscarriage ?O03.9 - Complete or unspecified spontaneous without complication (ICD-10) Migraine ?G43.909 - Migraine, unspecified, not intractable, without status migrainosus (ICD-10) LGSIL Pap smear of vagina ?R87.622 - Low grade squamous intraepithelial lesion on cytologic smear of vagina (LGSIL) (ICD-10) IBS (irritable bowel syndrome) ?K58.9 - Irritable bowel syndrome without diarrhea (ICD-10) Heroin addiction ?F11.20 - Opioid dependence, uncomplicated (ICD-10) Heart murmur ?R01.1 - Cardiac murmur, unspecified (ICD-10) Headache ?R51.9 - Headache, unspecified (ICD-10) Genital herpes ?A60.00 - Herpesviral infection of urogenital system, unspecified (ICD-10) 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 ?Q78.0 - Osteogenesis imperfecta (ICD-10) anomaly Drug use ?F19.90 - Other psychoactive substance use, unspecified, uncomplicated (ICD-10) Depression ?F32.A - Depression, unspecified (ICD-10) Bladder spasm ?N32.89 - Other specified disorders of bladder (ICD-10) Vaginal Pap smear with ASC-US ?R87.620 - Atypical squamous cells of undetermined significance on cytologic smear of vagina (ASC-US) (ICD-10) Surgical History H/O vaginal hysterectomy ?Z90.710 - Acquired absence of both cervix and uterus (ICD-10) Hx of tonsillectomy ?Z90.89 - Acquired absence of other organs (ICD-10) Hx laparoscopic cholecystectomy ?Z90.49 - Acquired absence of other specified parts of digestive tract (ICD-10) H/O dilation and curettage ?Z98.890 - Other specified postprocedural states (ICD-10) Social History Non-prescribed substance use: denies use Exam Narrative: Exam Narrative: Constitutional: Appears well-developed and well-nourished. Active. Non-toxic appearing. HENT: Head: Atraumatic. No signs of injury. Nose: No nasal discharge. Mouth/Throat: Mucous membranes are moist. Pharynx is normal. Tonsils symmetric. Uvula midline. Airway patent. Eyes: Conjunctivae normal and EOM are normal. Pupils are equal, round, and reactive to light. Right eye exhibits no discharge. Left eye exhibits no discharge. No icterus. Neck: Normal range of motion. Neck supple. No adenopathy. No stridor. Cardiovascular: Tachycardic and regular rhythm. Brisk capillary refill Pulmonary/Chest: Effort normal. No stridor. No respiratory distress. No wheezes.No rhonchi. No rales. No retractions. Abdominal: Soft. No distension. No mass. There is no tenderness. There is no rebound and no guarding. Musculoskeletal: Normal range of motion. No edema. No tenderness. No deformity. Neurological: Alert. Normal strength. No cranial nerve deficit or sensory deficit. Coordination normal. GCS eye subscore is 4. GCS verbal subscore is 5. GCS motor subscore is 6. Skin: Per triage report skin was reported to be diaphoretic but when I evaluate her skin is pink, warm, dry. Skin is warm. No rash noted. Const: Vital Signs, click to edit/add: Vital Signs - 24 hr 01/31/25 14:22 Temperature 98.3 F Pulse Rate [Pulse Oximeter] 112 H Respiratory Rate 20 Blood Pressure [Ri ght Upper Arm] 136/85 Pulse Oximetry 98 Oxygen Delivery Me thod Room Air Course Vital Signs Vital signs: Initial Vital Signs Temperature 98.3 F 01/31/25 14:22 Temperature Source Temporal Artery Scan 01/31/25 14:22 Pulse Rate 112 H 01/31/25 14:22 Respiratory Rate 20 01/31/25 14:22 Blood Pressure 136/85 01/31/25 14:22 Blood Pressure Mean 102 01/31/25 14:22 Pulse Oximetry 98 01/31/25 14:22 Oxygen Delivery Method Room Air 01/31/25 14:22 Vital Signs Temperature 98.3 F 01/31/25 14:22 Pulse Rate 112 H 01/31/25 14:22 Respiratory Rate 20 01/31/25 14:22 Blood Pressure 136/85 01/31/25 14:22 Pulse Oximetry 98 01/31/25 14:22 Oxygen Delivery Method Room Air 01/31/25 14:22 Temperature 98.3 F 01/31/25 14:22 Pulse Rate 112 H 01/31/25 14:22 Respiratory Rate 20 01/31/25 14:22 Blood Pressure 136/85 01/31/25 14:22 Pulse Oximetry 98 01/31/25 14:22 Oxygen Delivery Method Room Air 01/31/25 14:22 Medications Administered Medications: Discontinued Medications Generic Name Dose Route Start Last Admin Trade Name Freeman PRN Reason Stop Dose Admin Buprenorphine/Naloxone 1 each 01/31/25 15:43 01/31/25 16:02 Buprenorphine-Nalox 8-2mg Film SUBLINGUAL 01/31/25 15:44 1 each ONCE ONE Administration Medical Decision Making MDM Narrative Medical decision making narrative: 34-year-old female with history of some substance use disorder (fentanyl, kratom, math) who is now manage for her addiction on Suboxone. She has been working with her doctor to wean down the dose and was decreased from a 4/1 mg film a couple of months ago and is now on a 2/0.5 mg film. She is finding the lower dose of film to be inadequate for controlling her symptoms and craving so has been using more films than prescribed this month and now has run out early. She has been 5 days without any Suboxone is having increasing symptoms of withdrawal including diarrhea, nausea, sweatiness, insomnia, as well as cravings to use. She has been trying to work with her PCP to get an early refill and go back to her previous dose but so far has been unsuccessful. She also plans to follow up with [facility] addiction clinic. She wants to get on the injectable medications. She presents to the ER today because she desiring a dose of Suboxone to help manage her symptoms. At this point I do not think she is having infection, bowel obstruction, or other cause for symptoms. I do not think she needs laboratory workup, CT imaging, etc.. I think it is reasonable to manage her with a dose of Suboxone to help her substance use disorder and prevent relapse. Unfortunately our hospital only stocks the 8/2 mg Suboxone sublingual films. We did give her 1 of these films here in the ER which will help her cravings and withdrawal symptoms. She is at extremely low risk for overdose. There is no signs of any other coingestion . This will help manage the patient's symptoms this afternoon so that she will be able to recover. This will minimize her risk of relapse with her addiction. She plans to follow-up with her primary care provider, or with the [facility], tomorrow morning. Precautions for return to the ER reviewed. Discharge Plan Discharge Clinical Impression: Substance use disorder, Withdrawal from opioids Patient Disposition: Home, Self-Care Condition: Stable Instructions: Opioid Withdrawal (ED), Opioid Use Disorder (ED) Additional Instructions: Please return to the ER right away if you have any concerns especially high fever, uncontrolled vomiting, hallucinations, delirium, or seizures. Please follow-up with your regular doctor or with that of substance use clinic tomorrow for recheck. Prescriptions: No Action atorvastatin 40 mg tablet 40 mg PO QPM Follow Up/Referrals: Debi Andres DO [Primary Care Provider, Family Practice] Stand Alone Forms: BlogGlue Info Instructions
[2025-01-31] MEDS: BUPRENORPHINE-NALOX 8-2MG FILM 1 EACH SUBLINGUAL (16:02)
== END 2025-01-31 16:15 | disposition home or self-care (01) ==
PROVIDERS: Emergency Provider Emergency Medicine; PCP Family Medicine
DX: F11.23 Opioid dependence with withdrawal (principal); F15.21 Other stimulant dependence, in remission; T40.2X5A Adverse effect of other opioids, initial encounter
CPT/HCPCS: 99282; 99283; 99284; J0574